=== PATIENT | female | born 1955 | race Caucasian/White ===

== ENCOUNTER → 2016-10-26 | Outpatient (CLI) | payer BC ==
[~2016-10-26] MED LIST: ACTO45TA15 PO; ALBU17IN INH; ALBU17IN2 INH; ASPI81TA85 PO; BISO5TAB54 PO; CLINDAMYCIN 600 MG/50 ML PREMIX BAG As Ordered ONE; CRES40TA PO; FLON0.05; FLUT1SPR2; GLIP10TA6 PO; INSUDET SC; INSUHUMDS SC; INSULANT SC; JANU100T PO; JARD1TAB3 PO; LEVA25SO PO; LIDOCAINE 2% MDV 20 ML VIAL As Ordered ONE; LIDOCAINE W/EPINEPHRINE 1% 20ML VIAL As Ordered ONE; LIPI80TA PO; LISI5TAB PO; METF1000 PO; NEUR100C PO; NEUR800T PO; NOVOLOG SC; ONDA4VLL IV; PERCOCET PO; PRED10TA2 PO; SODIUM BICARBONATE 8.4% INJ 50MEQ 50 ML VIAL As Ordered ONE; TYLE325T5 PO; VITA10002 PO; VITA500047 PO; ZETI10TA21 PO; ZOFR4TAB3 PO; fentaNYL 100 MCG/2 ML INJECTION (J3010) As Ordered ONE
--- NOTE | 2016-10-26 16:55 | REPKIM ---
CLINICAL HISTORY: Cholangiocarcinoma. The referring service has asked a chest elhrvi-w-muik placement for chemotherapy. PROCEDURE PERFORMED: Placement of totally implantable venous access device under combined sonographic and fluoroscopic guidance INTERVENTIONALIST: Annette Dickens MD CONSENT: The risks, benefits and alternatives to the procedure were explained to the patient and informed written consent was obtained. MEDICATIONS: Local Lidocaine, Clindamycin 600 mg IV and Fentanyl IV. SEDATION: Independent trained observer was present during the entire duration IV medications for monitoring. EBL: 15 mL FLUORO TIME: 0.6 minutes DEVICE USED: Bard Port 8-Syriac, Single-Lumen Lot#[id number] PROCEDURE/FINDINGS: The patient was brought to the interventional radiology suite and was positioned supine on the table. Time out procedure was performed. Real time ultrasound was used and permanent image stored. The right IJ vein is patent and compressible. Using ultrasound guidance the internal jugular vein was accessed with a micropuncture needle, after infiltration of the skin and deep tissues with local anesthetic. A peel-away sheath was placed. The catheter tip was inserted via the sheath under controlled respiration. The sheath was removed, and the catheter was flushed with heparinized saline and clamped. Next attention was turned to creation of a subcutaneous pocket for the port along the upper chest. The overlying skin and deep tissues were infiltrated with local anesthetic. A transverse skin incision was made long enough to accommodate the reservoir, and using blunt dissection a subcutaneous pocket was created. A tunnel was created from the pocket to the access site. A clamp was advanced from the pocket incision to the venous access site and used to grasp the free end of the catheter and pull it through to the pocket incision. The catheter was trimmed, attached to the reservoir, and flushed with heparinized saline. The reservoir was inserted into the pocket and secured with 2-0 absorbable sutures. The deep tissue was closed with interrupted 2-0 Vicryl suture. The skin incision was closed with a running subcuticular suture of 4-0 Vicryl. The venotomy incision was closed with 4-0 Vicryl suture. Mastisol and Steri-Strips were applied. The port was then accessed and Heparin (100 units/mL concentration) locked in the port. A sterile dressing was then applied. Post procedure chest spot film radiograph showed the tip of the catheter is at the cavoatrial junction. The patient tolerated the procedure well with no immediate complications. This procedure was performed using ultrasound and fluoroscopy. Dr. Dickens was present. IMPRESSION: 1. The right IJ vein is patent and compressible. 2. Successful placement of right IJ chest port placement as discussed above. The chest [id number]-g-wbcb is ready for use. cc: May Bo MD [facility]
== END | disposition home or self-care (01) ==
LOC: M IRPRO 07:54
PROVIDERS: ATTEND Internal Medicine Medical Oncology
DX: C22.1 Intrahepatic bile duct carcinoma (principal)
CPT/HCPCS: 36561; 76937; 77001; C1788; C1894; J3010

== ENCOUNTER 2016-11-02 11:12 | Observation (INO) | payer BC ==
[~2016-11-02] VITALS: Ht 160 cm; Wt 70.3 kg
[~2016-11-02 11:12] MED LIST changes: -CLINDAMYCIN 600 MG/50 ML PREMIX BAG As Ordered ONE; -LIDOCAINE 2% MDV 20 ML VIAL As Ordered ONE; -LIDOCAINE W/EPINEPHRINE 1% 20ML VIAL As Ordered ONE; -SODIUM BICARBONATE 8.4% INJ 50MEQ 50 ML VIAL As Ordered ONE; -fentaNYL 100 MCG/2 ML INJECTION (J3010) As Ordered ONE
[2016-11-02] MEDS ORDERED: ONDANSETRON 4MG/2ML VIAL (J2405) As Ordered ONE ×2 (11:50→17:47)
[2016-11-02 12:35] LABS: BASO % 0.7 % (0.0-1.0); EOS # 0.1 K/mm3 (0.0-0.50); EOS % 2.3 % (0.0-3.0); LARGE UNSTAINED CELL # 0.1 K/mm3 (0.0-0.4); LYMPH # 0.8 K/mm3 (1.5-4.5); LYMPH % 12.6 % (24.0-44.0); MEAN CORPUSCULAR HEMOGLOBIN 24.4 pg (27.0-33.0); MEAN CORPUSCULAR HGB CONC 32.2 g/dl (32.0-36.5); MEAN CORPUSCULAR VOLUME 75.6 fl (80.0-96.0); MONO # 0.2 K/mm3 (0.0-0.8); MONO % 2.9 % (0.0-5.0); NEUTROPHILS # 4.9 K/mm3 (1.8-7.7); NEUTROPHILS % 80.6 % (36.0-66.0); PLATELET COUNT, AUTOMATED 601 k/mm3 (150-450); RED CELL DISTRIBUTION WIDTH 16.5 % (11.5-14.5); WHITE BLOOD COUNT 6.1 K/mm3 (4.0-10.0)
[2016-11-02 13:04] LABS: ALBUMIN/GLOBULIN RATIO 0.88 (1.00-1.93); ALKALINE PHOSPHATASE 692 U/L (45-117); ALT/SGPT 45 U/L (12-78); ANION GAP 11 MEQ/L (8-16); AST/SGOT 42 U/L (15-37); BILIRUBIN,DIRECT 0.5 MG/DL (0.0-0.2); BILIRUBIN,TOTAL 0.8 MG/DL (0.2-1.0); BLOOD UREA NITROGEN 15 MG/DL (7-18); CALCIUM LEVEL 8.4 MG/DL (8.8-10.2); CARBON DIOXIDE LEVEL 28 MEQ/L (21-32); CHLORIDE LEVEL 93 MEQ/L (98-107); CREATININE FOR GFR 0.68 MG/DL (0.55-1.02); GLOMERULAR FILTRATION RATE > 60.0 (>45); GLUCOSE, FASTING 307 MG/DL (80-110); POTASSIUM SERUM 4.6 MEQ/L (3.5-5.1); SODIUM LEVEL 132 MEQ/L (136-145); TOTAL PROTEIN 6.4 GM/DL (6.4-8.2)
[2016-11-02] MEDS ORDERED: MORPHINE 4 MG/ML 1ML SYRINGE As Ordered ONE ×2 (13:44→18:41)
[2016-11-02] MEDS ORDERED: GASTROGRAFIN SOLUTION 30ML (Q9963) As Ordered ONE (13:58)
--- NOTE | 2016-11-02 14:37 | REP ---
Chest x-ray: Two views. History: Shortness of breath. Comparison chest x-ray August 23, 2016. Findings: There is a right internal jugular venous Upxmyw-M-Qwmz catheter with its tip in the expected location of the superior vena cava. There is coarse bilateral basilar and perihilar discoid atelectasis unchanged from the August 23, 2016 prior study. No acute infiltrate is seen. Heart is not enlarged. The lungs are exposed at a low inspiratory level unchanged from the prior exam. Impression: Bilateral basilar and perihilar discoid atelectasis. Yoxlkv-R-Icxz catheter. No acute changes. Low level of inspiration again noted. Signed by Vasiliy Mcekon MD 11/02/2016 03:34 P
[2016-11-02] MEDS ORDERED: ISOVUE-370 76% 100ML VIAL (Q9967) As Ordered ONE (15:24)
--- NOTE | 2016-11-02 16:07 | REP ---
CT abdomen and pelvis with IV and oral contrast: History: Abdominal pain. The patient gives a history of primary carcinoma of the liver. Comparison CT study is from April 2012. Comparison chest CT study is from August 23, 2016. CT contrast dose: 100 ml of Isovue [address] findings: Preliminary digital [employer] associate radiograph demonstrates an unremarkable bowel gas pattern. There is plate-like atelectasis in the lower lobes bilaterally and in the right middle lobe. No pleural effusion is seen. There is an extensive infiltrative, predominately low density mass occupying much of the right and left lobes of the liver. This is similar in size and extent to its appearance on August 23, 2016. There is a small sliver of fluid in the perihepatic region. Spleen is homogeneous in texture. There is an accessory splenule anteriorly. No pancreatic lesion is seen. No adrenal mass is observed. There is a calcified gallstone in the gallbladder again noted. No pericholecystic fluid or gallbladder wall thickening is seen. There is a 1.4 cm cyst in the right kidney. In addition, there is a 0.9 cm calculus in the right mid kidney. This area is beyond the scan range from the CT study of August 23, 2016. The right renal cyst appears to be visible on MRI scanning. No renal mass lesion is observed. Delayed scan images show no filling defect in the collecting system of either kidney. There are a few uterine calcifications. No uterine or ovarian mass lesion is seen. A small amount of ascites is seen in the cul-de-sac reflections of the pelvis. Small and large intestinal bowel loops are normal in the abdomen and pelvis. Urinary bladder is intact. Bone window settings show no bony destructive lesion. Impression: 1. Bilateral lower lobe plate-like atelectasis in the lungs. 2. Extensive large infiltrative mass occupying much of the left and right lobe of the liver unchanged from recent prior studies. 3. Cholelithiasis. 4. Small right renal cyst. 5. 9 mm intrarenal nephrolithiasis right kidney without hydronephrosis. 6. Small quantity of ascitic fluid. Signed by Vasiliy Mckeon MD 11/02/2016 05:42 P
[2016-11-02] MEDS ORDERED: GI COCKTAIL 50ML BTL(HYOSCYAMINE/MAALOX/LIDOCAINE VISCOUS)(1:3:1) As Ordered ONE (19:47)
[2016-11-02] MEDS ORDERED: GLUCAGON FOR INJ 1 MG VIAL (J1610) SC PRN (20:30)
[2016-11-02] MEDS ORDERED: GLUCOSE 4 GM CHEW TABLET PO PRN (20:30)
[2016-11-02] MEDS ORDERED: DEXTROSE 50% 50 ML SYRINGE IV PRN (20:30)
[2016-11-02] MEDS ORDERED: GI COCKTAIL 50ML BTL(HYOSCYAMINE/MAALOX/LIDOCAINE VISCOUS)(1:3:1) PO PRN (20:30)
[2016-11-02] MEDS ORDERED: PERC10TA17 PO (20:38)
[2016-11-02] MEDS ORDERED: OMEP20CA3 PO (20:38)
[2016-11-02] MEDS ORDERED: PAXI10TA2 PO (20:38)
[2016-11-02] MEDS ORDERED: HumaLOG INSULIN (NovoLOG) PER UNIT SC SCH (21:00)
[2016-11-02] MEDS ORDERED: PARoxetine 10MG TABLET PO PRN (21:15)
[2016-11-02] MEDS ORDERED: oxyCODONE 5MG TAB PO PRN (21:15)
[2016-11-02] MEDS ORDERED: ALBUTEROL SULFATE 2.5 MG/0.5 ML INH NEB SOLN NEB PRN (21:15)
--- NOTE | 2016-11-02 22:11 | EDDOCDS ---
Physician Documentation [facility] Name: Stephanie Arzate Age: 61 yrs Sex: Female : 1955 Arrival Date: 11/02/2016 Time: 11:12 Bed 1 Private MD: May Bo P. Disposition: 11/02/16 19:51 Hospitalization ordered by Dodie Medeiros for Inpatient Admission. Preliminary diagnosis are Generalized abdominal pain, Nausea and vomiting. - Bed requested for 4 [place]. - Status is Inpatient Admission. [facility] - Condition is Stable. - Problem is new. - Symptoms are unchanged. Historical: - Allergies: Aspirin (Rash); Latex (Hives); PENICILLINS (Rash); Emend (Wheezing); - Home Meds: 1. Jardiance 25 mg oral tab 1 tab once daily (Last dose: 11/01/2016) 2. Humalog 100 unit/mL Sub-Q soln sliding scale three times daily (Last dose: 11/01/2016) 3. oxycodone-acetaminophen 5-325 mg Oral tab 1 tab every 4 hours (Last dose: 11/01/2016) 4. Paxil 10 mg Oral tab 1 tab once daily (Last dose: 10/31/2016) 5. omeprazole 20 mg Oral cpDR 1 cap once daily (Last dose: Unknown) - PMHx: Cancer, Liver; COPD; Diabetes - IDDM: controlled; Hypertension; Hypercholesterolemia; Diabetic Neuropathy; - PSHx: Carpal Tunnel Repair- Right; Infusaport Placement; - Social history: Smoking status: Patient states was never smoker of tobacco. No barriers to communication noted, The patient speaks fluent Hungarian. - Family history: Not pertinent. - : The pt / caregiver states he / she is not on anticoagulants. Home medication list is obtained from the patient. - Exposure Risk Screening:: None identified. Vital Signs: 11/02 11:13 BP 161 / 109; Pulse 105; Resp 18 S; Temp 98.0(O); Pulse Ox 100% on R/A; Weight 70.31 kg dd6 / 155.01 lbs (R); Height 5 ft. 3 in. (160.02 cm) (R); 11:45 BP 151 / 74 (auto/); cjh 11:46 Pulse 94 MON; Pulse Ox 95% ; cjh 12:00 BP 157 / 68 (auto/); cjh 12:15 BP 144 / 65 (auto/); cjh 12:16 Pulse 94 MON; Pulse Ox 94% ; cjh 12:30 BP 130 / 63 (auto/); cjh 12:31 Pulse 85 MON; Pulse Ox 94% ; cjh 12:45 BP 133 / 76 (auto/); cjh 12:46 Pulse 109 MON; Pulse Ox 96% ; cjh 13:00 BP 138 / 80 (auto/); cjh 13:01 Pulse 85 MON; Pulse Ox 95% ; cjh 13:15 BP 128 / 72 LA Supine (man/reg); ct3 13:15 BP 135 / 65 (auto/); cjh 13:16 Pulse 83 MON; Pulse Ox 94% ; cjh 13:36 Pulse 108 MON; Pulse Ox 94% ; cjh 13:37 BP 160 / 67 (auto/); cjh 13:52 BP 139 / 64 (auto/); cjh 13:52 Pulse 86 MON; Pulse Ox 91% ; cjh 14:07 BP 159 / 77 (auto/); cjh 14:07 Pulse 87 MON; Pulse Ox 95% ; cjh 14:22 BP 145 / 66 (auto/); cjh 14:22 Pulse 82 MON; Pulse Ox 94% ; cjh 14:36 Pulse 81 MON; Pulse Ox 95% ; cjh 14:37 BP 145 / 66; Pulse 80; Resp 16; Pulse Ox 95% ; Pain 2/10; cjh 14:37 BP 160 / 73 (auto/); cjh 14:51 Pulse 81 MON; Pulse Ox 96% ; cjh 14:52 BP 161 / 73 (auto/); cjh 15:06 Pulse 81 MON; Pulse Ox 95% ; cjh 15:07 BP 141 / 79 (auto/); cjh 15:22 BP 173 / 78 (auto/); cjh 15:22 Pulse 82 MON; Pulse Ox 94% ; cjh 15:37 BP 184 / 86 (auto/); cjh 15:37 Pulse 98 MON; Pulse Ox 91% ; cjh 15:39 BP 161 / 73 (auto/); cjh 15:39 Pulse 84 MON; Pulse Ox 92% ; cjh 15:52 BP 167 / 80 (auto/); cjh 15:52 Pulse 79 MON; Pulse Ox 93% ; cjh 16:37 BP 156 / 87 (auto/); cjh 16:37 Pulse 82 MON; Pulse Ox 95% ; cjh 16:52 BP 158 / 77 (auto/); cjh 16:52 Pulse 132 MON; Pulse Ox 96% ; cjh 17:07 BP 180 / 81 (auto/); cjh 17:07 Pulse 83 MON; Pulse Ox 95% ; cjh 17:22 BP 156 / 80 (auto/); cjh 17:23 Pulse 107 MON; Pulse Ox 97% ; cjh 17:37 BP 161 / 85 (auto/); cjh 17:37 Pulse 82 MON; Pulse Ox 95% ; cjh 18:07 BP 166 / 79 (auto/); cjh 18:07 Pulse 82 MON; Pulse Ox 93% ; cjh 18:22 BP 164 / 79 (auto/); cjh 18:22 Pulse 81 MON; Pulse Ox 93% ; cjh 18:37 BP 165 / 78 (auto/); cjh 18:37 Pulse 82 MON; Pulse Ox 95% ; cjh 18:52 BP 169 / 75 (auto/); cjh 18:52 Pulse 79 MON; Pulse Ox 92% ; cjh 19:07 BP 189 / 90 (auto/); cjh 19:07 Pulse 79 MON; Pulse Ox 94% ; cjh 19:22 BP 167 / 72 (auto/); cjh 19:22 Pulse 77 MON; Pulse Ox 92% ; cjh 19:37 BP 171 / 82 (auto/); cjh 19:37 Pulse 77 MON; Pulse Ox 92% ; cjh 20:37 BP 168 / 77 (auto/); cjh 20:38 Pulse 78 MON; Pulse Ox 93% ; cjh 20:52 BP 153 / 69 (auto/); cjh 20:52 Pulse 78 MON; Pulse Ox 92% ; cjh 21:02 BP 157 / 77 (auto/); cjh 21:02 Pulse 77 MON; Pulse Ox 93% ; cjh 21:03 BP 157 / 77; Pulse 82; Resp 18; Temp 97.9(TE); Pulse Ox 95% on R/A; Pain 2/10; valerie 21:07 BP 159 / 71 (auto/); cjh 21:07 Pulse 77 MON; Pulse Ox 93% ; cjh 21:21 Pulse 77 MON; Pulse Ox 92% ; cjh 21:22 BP 171 / 77 (auto/); cjh 21:37 BP 150 / 68 (auto/); cjh 21:37 Pulse 85 MON; Pulse Ox 94% ; cjh 21:52 BP 152 / 65 (auto/); cjh 21:53 Pulse 78 MON; Pulse Ox 93% ; cjh 11:13 Body Mass Index 27.46 (70.31 kg, 160.02 cm) dd6 MDM: 11:27 NS 0.9% 500 ml IV at bolus once ordered. fg 11:27 IV Saline Lock ordered. fg 11:27 Undress patient appropriately for examination ordered. fg 11:27 Ondansetron 4 mg IVP once ordered. fg 11:28 Basic Metabolic Profile Ordered. EDMS 11:28 CBC with Diff Ordered. EDMS 11:28 Lipase Ordered. EDMS 11:28 Liver Profile Ordered. EDMS 11:28 Troponin Ordered. EDMS 11:28 Urinalysis Ordered. EDMS 11:28 Urine Culture Ordered. EDMS 11:29 NOTHING BY MOUTH+DIET ordered. EDMS 11:29 ECG WITH READING ER PHYS+CARDIAG ordered. EDMS 11:48 -Blood Culture (Adults Only), peripheral from different site, or from device/port/PICC fg etc. if present ordered. 11:48 -Blood Culture Ordered. EDMS 11:48 Lactic Acid (Juarez tube on ice) Ordered. EDMS 11:51 -Blood Culture (Adults Only), peripheral from different site, or from device/port/PICC deg etc. if present complete. 11:52 BLOOD CULTURES Ordered. EDMS 12:07 Pension Agent/Pulse Ox/q 30 min VS ordered. br1 12:07 [facility] [place] ordered. br1 12:59 [facility] Payment Agreement was scanned into [employer] and attached to record. jp5 13:25 NS 0.9% 1000 ml IV at 150 mL/hr continuous ordered. br1 13:25 Chest, 2 View (pa\E\lat) Ordered. EDMS 13:26 morphine 4 mg IVP once ordered. br1 13:32 CT ABD & PELVIS: IV and Oral Contrast Ordered. EDMS 13:44 Financial registration complete. jp5 13:55 Diatrizoate Meglumine & Sodium Liquid 10 ml PO once; mix in 290cc of water ordered. cjh 13:55 Diatrizoate Meglumine & Sodium Liquid 10 ml PO once; mix in 290cc of water ordered. cjh 15:12 Basic Metabolic Profile Reviewed. br1 15:12 CBC with Diff Reviewed. br1 15:12 Liver Profile Reviewed. br1 15:12 Urinalysis Reviewed. br1 15:12 Lipase Reviewed. br1 15:12 Troponin Reviewed. br1 15:12 Lactic Acid (Juarez tube on ice) Reviewed. br1 16:23 Fluid Challenge ordered. br1 17:46 Ondansetron 4 mg IVP once ordered. br1 18:24 morphine 4 mg IVP once ordered. br1 19:38 GI Cocktail - (Alum-Mag Hydroxide-Simeth 30 ml, Lidocaine 10 ml, Hyoscyamine 10 ml) PO br1 once; Pre-mixed 50mL unit dose ordered. 19:38 BED REQUEST+ADM ordered. EDMS 20:32 CBC WITH DIFFERENTIAL Ordered. EDMS 20:32 BASIC METABOLIC PROFILE Ordered. EDMS 20:34 Admission / Observation Status ordered. EDMS 20:34 OTHER CUSTOM DIETS ordered. EDMS Administered Medications: 12:20 Drug: Ondansetron 4 mg Route: IVP; Site: right forearm; [facility] 12:21 Drug: NS 0.9% 500 ml Route: IV; Rate: bolus; Site: right forearm; [facility] 22:01 Follow up: IV Status: Completed infusion; IV Intake: 500ml [facility] 13:54 Drug: morphine 4 mg Route: IVP; Site: right forearm; [facility] 14:37 Follow up: Response: No Adverse Reaction; Pain is decreased [facility] 13:55 Drug: NS 0.9% 1000 ml Route: IV; Rate: 150 mL/hr; Site: right forearm; [facility] 22:01 Follow up: IV Status: Completed infusion; IV Intake: 1000ml [facility] 14:05 Drug: Diatrizoate Meglumine & Sodium 10 ml [diatrizoate meglumine and diat.sodium 66 cjh %-10 % oral solution (10 mL)] Route: PO; 14:37 Drug: Diatrizoate Meglumine & Sodium 10 ml [diatrizoate meglumine and diat.sodium 66 cjh %-10 % oral solution (10 mL)] Route: PO; 17:52 Drug: Ondansetron 4 mg Route: IVP; Site: right antecubital; [facility] 18:52 Drug: morphine 4 mg Route: IVP; Site: right forearm; [facility] 22:00 Follow up: Response: No Adverse Reaction; No significant change. [facility] 19:55 Drug: GI Cocktail - (Alum-Mag Hydroxide-Simeth Suspension 225 mg-200 mg-25 mg/5 mL 30 cjh ml, Lidocaine Liquid 2 % 10 ml, Hyoscyamine Liquid 10 ml) Route: PO; 22:00 Follow up: Response: No Adverse Reaction; Pain is decreased [facility] Signatures: Dispatcher [employer] EDMS Kalli Andrade, Clinical Education Coordinator Unit deg Damien, NilsaOfeliaPratima, Clinical Education Coordinator Unit ml3 Ahsan Gomez MD MD br1 Kristina Patel RN RN [id number] Pretty Almaraz RN RN [facility] Tamika Lott jp5 Qi Barkley MD MD Theresa Garcia RN [id number] The chart was reviewed and I authenticate all verbal orders and agree with the evaluation and treatment provided.Attachments: 12:59 [facility] Payment Agreement [email or web address] [facility]
--- NOTE | 2016-11-02 22:11 | EDDOCDS ---
Nurse's Notes [facility] Name: Stephanie Arzate Age: 61 yrs Sex: Female : 1955 Arrival Date: 11/02/2016 Time: 11:12 Bed 1 Private MD: May Bo P. Diagnosis: Generalized abdominal pain;Nausea and vomiting Presentation: 11/02 11:15 Presenting complaint: Patient states: "I've been vomiting since late Wednesday and I jc4 vomited once this morning. I had a temperature of 101.2 on Wednesday but haven't any since then. I called my oncologist who told me to come in for hydration". Adult Sepsis Screening: The patient does not have new or worsening altered mentation. Patient's respiratory rate is less than 22. Systolic blood pressure is greater than 100. Patient has a qSOFA score of 0- Negative Sepsis Screen. Suicide/Homicide risk assessment- the patient denies having any suicidal and/or homicidal ideations and does not present with any other emotional, behavioral or mental health complaints. Status: Patient is not a medicaid service coordinator or dependent. Transition of care: patient was not received from another setting of care. 11:15 Acuity: MAURICIO Level 3 jc4 11:15 Method Of Arrival: Walkin/Carried/Asstd 4 11:15 Red Flag criteria, patient assessed and taken directly to a bed. jc4 11:21 Presenting complaint: currently undergoing chemotherapy for Liver Cancer. Followed by jc4 Dr. Bo. Triage Assessment: 11:21 General: Appears in no apparent distress. Pain: Pain currently is 4 out of 10 on a pain jc4 scale. HIV screening NA for this visit Offered previously. Historical: - Allergies: Aspirin (Rash); Latex (Hives); PENICILLINS (Rash); Emend (Wheezing); - Home Meds: 1. Jardiance 25 mg oral tab 1 tab once daily (Last dose: 11/01/2016) 2. Humalog 100 unit/mL Sub-Q soln sliding scale three times daily (Last dose: 11/01/2016) 3. oxycodone-acetaminophen 5-325 mg Oral tab 1 tab every 4 hours (Last dose: 11/01/2016) 4. Paxil 10 mg Oral tab 1 tab once daily (Last dose: 10/31/2016) 5. omeprazole 20 mg Oral cpDR 1 cap once daily (Last dose: Unknown) - PMHx: Cancer, Liver; COPD; Diabetes - IDDM: controlled; Hypertension; Hypercholesterolemia; Diabetic Neuropathy; - PSHx: Carpal Tunnel Repair- Right; Infusaport Placement; - Social history: Smoking status: Patient states was never smoker of tobacco. No barriers to communication noted, The patient speaks fluent Stateless. - Family history: Not pertinent. - : The pt / caregiver states he / she is not on anticoagulants. Home medication list is obtained from the patient. - Exposure Risk Screening:: None identified. Screenin:44 Screening information is obtained from the patient. Fall risk: No risks identified. [facility] Assistance ADL's: requires no assistance with activities of daily living. Abuse/DV Screen: The patient / caregiver reports he/she is: not in a situation that causes fear, pain or injury. Nutritional screening: No deficits noted. Advance Directives: There is no active DNR order. home support is adequate. Assessment: 11:30 General: Appears in no apparent distress, comfortable, Behavior is appropriate for age, cjh cooperative. Neurological: Level of Consciousness is awake, alert, Oriented to person, place, time. Respiratory: Airway is patent Respiratory effort is even, unlabored, Respiratory pattern is regular, symmetrical. GI: Abdomen is non- distended Bowel sounds present X 4 quads. Abd is non tender X 4 quads Reports nausea. Derm: Skin is pink, warm & dry. Musculoskeletal: Range of motion intact in all extremities. 12:00 General: assisted OOB to BSC, tolerated without distress, urine sample obtained. [facility] 13:00 General: resting quietly, states nausea has improved, no new changes. [facility] 14:00 General: drinking contrast, no new complaints, will continue to monitor. [facility] 15:42 General: returned from CT, tolerated well, denies further needs. [facility] 16:30 General: no changes from previous, awaiting results, denies needs at this time. [facility] 17:52 General: Appears uncomfortable, Behavior is cooperative. General: medicated for nausea. mk4 Pain: Location: abdomen Pain currently is 6 out of 10 on a pain scale. 18:53 General: medicated for pain, patient is quiet, son at bedside, waiting dispo. [facility] 19:56 General: no new problems or complaints, taking meds without difficulty, awaiting [facility] admission. 20:30 General: state nauseous briefly after GI cocktail but better now than before. [facility] Vital Signs: 11:13 BP 161 / 109; Pulse 105; Resp 18 S; Temp 98.0(O); Pulse Ox 100% on R/A; Weight 70.31 kg dd6 (R); Height 5 ft. 3 in. (160.02 cm) (R); 11:45 BP 151 / 74 (auto/); cjh 11:46 Pulse 94 MON; Pulse Ox 95% ; cjh 12:00 BP 157 / 68 (auto/); cjh 12:15 BP 144 / 65 (auto/); cjh 12:16 Pulse 94 MON; Pulse Ox 94% ; cjh 12:30 BP 130 / 63 (auto/); cjh 12:31 Pulse 85 MON; Pulse Ox 94% ; cjh 12:45 BP 133 / 76 (auto/); cjh 12:46 Pulse 109 MON; Pulse Ox 96% ; cj 13:00 BP 138 / 80 (auto/); cjh 13:01 Pulse 85 MON; Pulse Ox 95% ; cjh 13:15 BP 128 / 72 LA Supine (man/reg); ct3 13:15 BP 135 / 65 (auto/); cjh 13:16 Pulse 83 MON; Pulse Ox 94% ; cjh 13:36 Pulse 108 MON; Pulse Ox 94% ; cjh 13:37 BP 160 / 67 (auto/); cjh 13:52 BP 139 / 64 (auto/); cjh 13:52 Pulse 86 MON; Pulse Ox 91% ; cjh 14:07 BP 159 / 77 (auto/); cjh 14:07 Pulse 87 MON; Pulse Ox 95% ; cjh 14:22 BP 145 / 66 (auto/); cjh 14:22 Pulse 82 MON; Pulse Ox 94% ; cjh 14:36 Pulse 81 MON; Pulse Ox 95% ; cjh 14:37 BP 145 / 66; Pulse 80; Resp 16; Pulse Ox 95% ; Pain 2/10; cjh 14:37 BP 160 / 73 (auto/); cjh 14:51 Pulse 81 MON; Pulse Ox 96% ; cjh 14:52 BP 161 / 73 (auto/); cjh 15:06 Pulse 81 MON; Pulse Ox 95% ; cjh 15:07 BP 141 / 79 (auto/); cjh 15:22 BP 173 / 78 (auto/); cjh 15:22 Pulse 82 MON; Pulse Ox 94% ; cjh 15:37 BP 184 / 86 (auto/); cjh 15:37 Pulse 98 MON; Pulse Ox 91% ; cjh 15:39 BP 161 / 73 (auto/); cjh 15:39 Pulse 84 MON; Pulse Ox 92% ; cjh 15:52 BP 167 / 80 (auto/); cjh 15:52 Pulse 79 MON; Pulse Ox 93% ; cjh 16:37 BP 156 / 87 (auto/); cjh 16:37 Pulse 82 MON; Pulse Ox 95% ; cjh 16:52 BP 158 / 77 (auto/); cjh 16:52 Pulse 132 MON; Pulse Ox 96% ; cjh 17:07 BP 180 / 81 (auto/); cjh 17:07 Pulse 83 MON; Pulse Ox 95% ; cjh 17:22 BP 156 / 80 (auto/); cjh 17:23 Pulse 107 MON; Pulse Ox 97% ; cjh 17:37 BP 161 / 85 (auto/); cjh 17:37 Pulse 82 MON; Pulse Ox 95% ; cjh 18:07 BP 166 / 79 (auto/); cjh 18:07 Pulse 82 MON; Pulse Ox 93% ; cjh 18:22 BP 164 / 79 (auto/); cjh 18:22 Pulse 81 MON; Pulse Ox 93% ; cjh 18:37 BP 165 / 78 (auto/); cjh 18:37 Pulse 82 MON; Pulse Ox 95% ; cjh 18:52 BP 169 / 75 (auto/); cjh 18:52 Pulse 79 MON; Pulse Ox 92% ; cjh 19:07 BP 189 / 90 (auto/); cjh 19:07 Pulse 79 MON; Pulse Ox 94% ; cjh 19:22 BP 167 / 72 (auto/); cjh 19:22 Pulse 77 MON; Pulse Ox 92% ; cjh 19:37 BP 171 / 82 (auto/); cjh 19:37 Pulse 77 MON; Pulse Ox 92% ; cjh 20:37 BP 168 / 77 (auto/); cjh 20:38 Pulse 78 MON; Pulse Ox 93% ; cjh 20:52 BP 153 / 69 (auto/); cjh 20:52 Pulse 78 MON; Pulse Ox 92% ; cjh 21:02 BP 157 / 77 (auto/); cjh 21:02 Pulse 77 MON; Pulse Ox 93% ; cjh 21:03 BP 157 / 77; Pulse 82; Resp 18; Temp 97.9(TE); Pulse Ox 95% on R/A; Pain 2/10; valerie 21:07 BP 159 / 71 (auto/); cjh 21:07 Pulse 77 MON; Pulse Ox 93% ; cjh 21:21 Pulse 77 MON; Pulse Ox 92% ; cjh 21:22 BP 171 / 77 (auto/); cjh 21:37 BP 150 / 68 (auto/); cjh 21:37 Pulse 85 MON; Pulse Ox 94% ; cjh 21:52 BP 152 / 65 (auto/); cjh 21:53 Pulse 78 MON; Pulse Ox 93% ; cjh 11:13 Body Mass Index 27.46 (70.31 kg, 160.02 cm) dd6 Vitals: 11:13 Log In Time: November 02, 2016 at 11:11. dd6 ED Course: 11:13 Patient visited by Eric Og PCA. dd6 11:13 May Bo is Private Physician. dd6 11:13 Patient moved to Waiting dd6 11:16 Triage Initiated jc4 11:25 Patient moved to 1 jc4 11:42 EKG done. (by ED staff). Reviewed by Qi Barkley MD. dem1 11:44 Pt greeted and oriented to ED. Patient advised of names of staff involved in care, dem1 location of call naylor, wait times and NPO status. Patient has correct armband on for positive identification. Placed in gown. Bed in low position. Call light in reach. Side rails up X 1. campus monitor on. Pulse ox on. NIBP on. 11:45 Patient visited by Nik Jones. dem1 12:20 Lactic Acid (Juarez tube on ice) Sent. cjh 12:21 Basic Metabolic Profile Sent. cjh 12:21 CBC with Diff Sent. cjh 12:21 Lipase Sent. cjh 12:21 Liver Profile Sent. cjh 12:21 Troponin Sent. cjh 12:21 Urinalysis Sent. cjh 12:21 Urine Culture Sent. cjh 12:36 Patient visited by Pretty Almaraz RN. cj 12:59 [facility] Payment Agreement was scanned into [employer] and attached to record. jp5 13:02 Ahsan Gomez MD is Attending Physician. br1 13:15 Patient visited by Gayatri Jacobson PCA. ct3 13:24 Patient visited by Ahsan Gomez MD. br1 13:56 Patient visited by Pretty Almaraz RN. cjh 14:38 Patient visited by Pretty Almaraz RN. cjh 15:13 Patient visited by Gayatri Jacobson PCA. ct3 15:13 Chest, 2 View (pa\\E\\lat) Returned. EDMS 15:44 The patient / caregiver is instructed regarding the plan of care and ED course. cjh 15:44 Inserted saline lock: 20 gauge in right forearm and blood collected. The patient [facility] tolerated the procedure well. Labs drawn. (by ED staff). Sent per order to lab. Labs/Blood culture drawn Urine collected. Clean catch specimen. Urine specimen sent to lab. 15:46 Patient visited by Pretty Almaraz RN. cj 16:40 CT ABD & PELVIS: IV and Oral Contrast Returned. EDMS 16:42 Patient visited by Gayatri Jacobson PCA. ct3 17:14 Patient visited by Gayatri Jacobson PCA. ct3 17:46 Patient visited by Ahsan Gomez MD. br1 18:21 Patient visited by Gayatri Jacobson PCA. ct3 18:52 Patient visited by Pretty Almaraz RN. cjh 19:13 Patient visited by Marcio Vasquez PCA. kb5 19:48 Patient visited by Ahsan Gomez MD. br1 19:51 Dodie Medeiros is Hospitalizing Provider. br1 20:11 Patient visited by Marcio Vasquez PCA. kb5 21:04 Patient visited by Vivi Up PCA. valerie Administered Medications: 12:20 Drug: Ondansetron 4 mg Route: IVP; Site: right forearm; [facility] 12:21 Drug: NS 0.9% 500 ml Route: IV; Rate: bolus; Site: right forearm; [facility] 22:01 Follow up: IV Status: Completed infusion; IV Intake: 500ml [facility] 13:54 Drug: morphine 4 mg Route: IVP; Site: right forearm; [facility] 14:37 Follow up: Response: No Adverse Reaction; Pain is decreased [facility] 13:55 Drug: NS 0.9% 1000 ml Route: IV; Rate: 150 mL/hr; Site: right forearm; [facility] 22:01 Follow up: IV Status: Completed infusion; IV Intake: 1000ml [facility] 14:05 Drug: Diatrizoate Meglumine & Sodium 10 ml [diatrizoate meglumine and diat.sodium 66 cjh %-10 % oral solution (10 mL)] Route: PO; 14:37 Drug: Diatrizoate Meglumine & Sodium 10 ml [diatrizoate meglumine and diat.sodium 66 cjh %-10 % oral solution (10 mL)] Route: PO; 17:52 Drug: Ondansetron 4 mg Route: IVP; Site: right antecubital; 4 18:52 Drug: morphine 4 mg Route: IVP; Site: right forearm; [facility] 22:00 Follow up: Response: No Adverse Reaction; No significant change. [facility] 19:55 Drug: GI Cocktail - (Alum-Mag Hydroxide-Simeth Suspension 225 mg-200 mg-25 mg/5 mL 30 cjh ml, Lidocaine Liquid 2 % 10 ml, Hyoscyamine Liquid 10 ml) Route: PO; 22:00 Follow up: Response: No Adverse Reaction; Pain is decreased [facility] Intake: 22:01 IV: 500.00ml; Total: 500.00ml. [facility] 22:01 IV: 1000.00ml; Total: 1500.00ml. [facility] Order Results: Lab Order: Basic Metabolic Profile; SPEC'M 11/02/16 12:13 Test: GLUCOSE, FASTING; Value: 307; Range: 80-110; Abnormal: Above high normal; Units: MG/DL; Status: F Test: BLOOD UREA NITROGEN; Value: 15; Range: 7-18; Units: MG/DL; Status: F Test: CREATININE FOR GFR; Value: 0.68; Range: 0.55-1.02; Units: MG/DL; Status: F Test: GLOMERULAR FILTRATION RATE; Value: > 60.0; Range: >45; Status: F Test: SODIUM LEVEL; Value: 132; Range: 136-145; Abnormal: Below low normal; Units: MEQ/L; Status: F Test: POTASSIUM SERUM; Value: 4.6; Range: 3.5-5.1; Units: MEQ/L; Status: F Test: CHLORIDE LEVEL; Value: 93; Range: 98-107; Abnormal: Below low normal; Units: MEQ/L; Status: F Test: CARBON DIOXIDE LEVEL; Value: 28; Range: 21-32; Units: MEQ/L; Status: F Test: ANION GAP; Value: 11; Range: 8-16; Units: MEQ/L; Status: F Test: CALCIUM LEVEL; Value: 8.4; Range: 8.8-10.2; Abnormal: Below low normal; Units: MG/DL; Status: F Test Note: ; Units are mL/min/1.73 m2 Chronic Kidney Disease Staging per NKF: Stage I & II GFR >=60 Normal to Mildly Decreased Stage III GFR 30-59 Moderately Decreased Stage IV GFR 15-29 Severely Decreased Stage V GFR <15 Very Little GFR Left ESRD GFR <15 on [employer] Lab Order: CBC with Diff; SPEC'M 11/02/16 12:13 Test: WHITE BLOOD COUNT; Value: 6.1; Range: 4.0-10.0; Units: K/mm3; Status: F Test: RED BLOOD COUNT; Value: 4.82; Range: 4.00-5.40; Units: M/mm3; Status: F Test: HEMOGLOBIN; Value: 11.7; Range: 12.0-16.0; Abnormal: Below low normal; Units: g/dl; Status: F Test: HEMATOCRIT; Value: 36.5; Range: 36.0-47.0; Units: %; Status: F Test: MEAN CORPUSCULAR VOLUME; Value: 75.6; Range: 80.0-96.0; Abnormal: Below low normal; Units: fl; Status: F Test: MEAN CORPUSCULAR HEMOGLOBIN; Value: 24.4; Range: 27.0-33.0; Abnormal: Below low normal; Units: pg; Status: F Test: MEAN CORPUSCULAR HGB CONC; Value: 32.2; Range: 32.0-36.5; Units: g/dl; Status: F Test: RED CELL DISTRIBUTION WIDTH; Value: 16.5; Range: 11.5-14.5; Abnormal: Above high normal; Units: %; Status: F Test: PLATELET COUNT, AUTOMATED; Value: 601; Range: 150-450; Abnormal: Above high normal; Units: k/mm3; Status: F Test: NEUTROPHILS %; Value: 80.6; Range: 36.0-66.0; Abnormal: Above high normal; Units: %; Status: F Test: LYMPH %; Value: 12.6; Range: 24.0-44.0; Abnormal: Below low normal; Units: %; Status: F Test: MONO %; Value: 2.9; Range: 0.0-5.0; Units: %; Status: F Test: EOS %; Value: 2.3; Range: 0.0-3.0; Units: %; Status: F Test: BASO %; Value: 0.7; Range: 0.0-1.0; Units: %; Status: F Test: LARGE UNSTAINED CELL %; Value: 1.0; Range: 0.0-4.0; Units: %; Status: F Test: NEUTROPHILS #; Value: 4.9; Range: 1.8-7.7; Units: K/mm3; Status: F Test: LYMPH #; Value: 0.8; Range: 1.5-4.5; Abnormal: Below low normal; Units: K/mm3; Status: F Test: MONO #; Value: 0.2; Range: 0.0-0.8; Units: K/mm3; Status: F Test: EOS #; Value: 0.1; Range: 0.0-0.50; Units: K/mm3; Status: F Test: BASO #; Value: 0.0; Range: 0.0-0.2; Units: K/mm3; Status: F Test: LARGE UNSTAINED CELL #; Value: 0.1; Range: 0.0-0.4; Units: K/mm3; Status: F Lab Order: Lipase; SPEC'M 11/02/16 12:13 Test: LIPASE; Value: 131; Range: 73-393; Units: U/L; Status: F Lab Order: Liver Profile; SPEC'M 11/02/16 12:13 Test: AST/SGOT; Value: 42; Range: 15-37; Abnormal: Above high normal; Units: U/L; Status: F Test: ALT/SGPT; Value: 45; Range: 12-78; Units: U/L; Status: F Test: ALKALINE PHOSPHATASE; Value: 692; Range: 45-117; Abnormal: Above high normal; Units: U/L; Status: F Test: BILIRUBIN,TOTAL; Value: 0.8; Range: 0.2-1.0; Units: MG/DL; Status: F Test: BILIRUBIN,DIRECT; Value: 0.5; Range: 0.0-0.2; Abnormal: Above high normal; Units: MG/DL; Status: F Test: TOTAL PROTEIN; Value: 6.4; Range: 6.4-8.2; Units: GM/DL; Status: F Test: ALBUMIN; Value: 3.0; Range: 3.2-5.2; Abnormal: Below low normal; Units: GM/DL; Status: F Test: ALBUMIN/GLOBULIN RATIO; Value: 0.88; Range: 1.00-1.93; Abnormal: Below low normal; Status: F Lab Order: Troponin; SPEC'M 11/02/16 12:13 Test: TROPONIN I; Value: < 0.02; Range: < 0.10; Units: NG/ML; Status: F Test Note: ; Troponin I Reference Interval for [employer] LOCI: 99th Percentile= 0.00-0.045 ng/ml Risk Stratification: <= 0.10 ng/ml Decreased Risk for Adverse Clinical Events. 0.10-1.50 ng/ml Increased Risk for Adverse Clinical Events. Evaluation of additional criterion and/or repeat testing in 2-6 hours is suggested to rule out myocardial damage. >= 1.50 ng/ml Indicative of Myocardial Injury. Lab Order: Urinalysis; SPEC'M 11/02/16 12:13 Test: APPEARANCE, URINE; Value: HAZY; Range: CLEAR; Status: F Test: COLOR, URINE; Value: YELLOW; Range: YELLOW; Status: F Test: PH,URINE; Value: 5.0; Range: 5.0-9.0; Units: UNITS; Status: F Test: SPECIFIC GRAVITY URINE AUTO; Value: 1.022; Range: 1.002-1.035; Status: F Test: PROTEIN, URINE AUTO; Value: 1+; Range: NEGATIVE; Abnormal: Above high normal; Units: mg/dL; Status: F Test: GLUCOSE, URINE (UA) AUTO; Value: 3+; Range: NEGATIVE; Abnormal: Above high normal; Units: mg/dL; Status: F Test: KETONE, URINE AUTO; Value: TRACE; Range: NEGATIVE; Abnormal: Above high normal; Units: mg/dL; Status: F Test: UROBILINOGEN, URINE AUTO; Value: 4.0; Range: 0.0-2.0; Abnormal: Above high normal; Units: mg/dL; Status: F Test: BILIRUBIN, URINE AUTO; Value: NEGATIVE; Range: NEGATIVE; Status: F Test: NITRITE, URINE AUTO; Value: NEGATIVE; Range: NEGATIVE; Status: F Test: LEUKOCYTE ESTERASE, URINE AUTO; Value: TRACE; Range: NEGATIVE; Abnormal: Above high normal; Status: F Test: BLOOD, URINE BLOOD; Value: NEGATIVE; Range: NEGATIVE; Status: F Test: WBC, URINE AUTO; Value: 5; Range: 0-3; Abnormal: Above high normal; Units: /HPF; Status: F Test: RBC, URINE AUTO; Value: 2; Range: 0-3; Units: /HPF; Status: F Test: BACTERIA, URINE AUTO; Value: 1+; Range: NEGATIVE; Abnormal: Above high normal; Status: F Test: SQUAMOUS EPITHELIAL CELL UR AU; Value: 3; Range: 0-6; Units: /HPF; Status: F Test: MUCUS, URINE; Value: SMALL; Range: NEGATIVE; Status: F Test: HYALINE CAST, URINE AUTO; Value: 0; Range: 0-1; Units: /LPF; Status: F Lab Order: Lactic Acid (Juarez tube on ice); SPEC'M 11/02/16 12:13 Test: LACTIC ACID LEVEL, LACTATE; Value: 1.5; Range: 0.4-2.0; Units: MMOL/L; Status: F Radiology Order: Chest, 2 View (pa\\E\\lat) Test: Chest, 2 View (pa\\E\\lat) REASON FOR EXAMINATION: Shortness of Breath; Chest x-ray: Two views.; ; History: Shortness of breath.; ; Comparison chest x-ray August 23, 2016.; ; Findings: There is a right internal jugular venous Wxilev-B-Loqx catheter with; its tip in the expected location of the superior vena cava. There is coarse; bilateral basilar and perihilar discoid atelectasis unchanged from the 2015 prior study. No acute infiltrate is seen. Heart is not enlarged. The; lungs are exposed at a low inspiratory level unchanged from the prior exam.; ; Impression:; ; Bilateral basilar and perihilar discoid atelectasis. Ddjzai-[id number]-Trmm catheter. No; acute changes. Low level of inspiration again noted.; ; ; Signed by; Vasiliy Mckeon MD 11/02/2016 03:34 P; Radiology Order: CT ABD & PELVIS: IV and Oral Contrast Test: CT ABD & PELVIS: IV and Oral Contrast REASON FOR EXAMINATION: Abdomen Pain; CT abdomen and pelvis with IV and oral contrast:; ; History: Abdominal pain. The patient gives a history of primary carcinoma of the; liver.; ; Comparison CT study is from April 2012. Comparison chest CT study is from 2015.; ; CT contrast dose: 100 ml of Isovue 370 is administered intravenously.; ; CT findings: Preliminary digital annual greenhouse manager radiograph demonstrates an unremarkable; bowel gas pattern. There is plate-like atelectasis in the lower lobes; bilaterally and in the right middle lobe. No pleural effusion is seen.; ; There is an extensive infiltrative, predominately low density mass occupying much; of the right and left lobes of the liver. This is similar in size and extent to; its appearance on August 23, 2016. There is a small sliver of fluid in the; perihepatic region. Spleen is homogeneous in texture. There is an accessory; splenule anteriorly. No pancreatic lesion is seen. No adrenal mass is observed.; There is a calcified gallstone in the gallbladder again noted. No; pericholecystic fluid or gallbladder wall thickening is seen. There is a 1.4 cm; cyst in the right kidney. In addition, there is a 0.9 cm calculus in the right; mid kidney. This area is beyond the scan range from the CT study of August 232015. The right renal cyst appears to be visible on MRI scanning. No renal mass; lesion is observed. Delayed scan images show no filling defect in the collecting; system of either kidney. There are a few uterine calcifications. No uterine or; ovarian mass lesion is seen. A small amount of ascites is seen in the cul-de-sac; reflections of the pelvis. Small and large intestinal bowel loops are normal in; the abdomen and pelvis. Urinary bladder is intact. Bone window settings show no; bony destructive lesion.; ; Impression:; ; 1. Bilateral lower lobe plate-like atelectasis in the lungs.; ; 2. Extensive large infiltrative mass occupying much of the left and right lobe; of the liver unchanged from recent prior studies.; ; 3. Cholelithiasis.; ; 4. Small right renal cyst.; ; 5. 9 mm intrarenal nephrolithiasis right kidney without hydronephrosis.; ; 6. Small quantity of ascitic fluid.; ; ; Signed by; Vasiliy Mckeon MD 11/02/2016 05:42 P; Outcome: 15:44 CT Study completed. [facility] 19:51 Decision to Hospitalize by Provider. br1 22:10 Patient left the ED. [facility] Signatures: Dispatcher [employer] EDMS Marcio Vasquez, MASTER COOK MASTER COOK kb5 Ahsan Gomez MD MD br1 Eric Og, MASTER COOK MASTER COOK dd6 Kristina Patel RN RN jc4 Vivi Up, MASTER COOK MASTER COOK valerie Gayatri Jacobson, MASTER COOK MASTER COOK ct3 Nik Jones dem1 Pretty AlmarazRN RN [facility] Theresa Garcia RN RN 4 Tamika Lott jp5 MTDD
[2016-11-02 22:13] VITALS: BP 158/78
[2016-11-02] MEDS: SUCRALFATE SUSP 1GM/10ML UD PO SCH (22:36)
[2016-11-02] MEDS: PANTOPRAZOLE 40MG INJ (PROTONIX) (C9113) IV SCH (22:36)
--- NOTE | 2016-11-02 23:28 | HPE ---
DATE OF ADMISSION: 11/02/2016 PRIMARY CARE PROVIDER: Negrita Fox NP ONCOLOGIST: May Bo MD CHIEF COMPLAINT: Intractable nausea and vomiting for three days, inability to keep anything down, upper abdominal pain. 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 Currently on chemotherapy. Last chemotherapy was on 10/29/2016. Diabetes, hypertension, hypercholesterolemia, diabetic neuropathy, chronic obstructive pulmonary disease (COPD). HISTORY OF PRESENT ILLNESS: This is a 61-year-old female diagnosed with cholangiocarcinoma in the liver in August 2016, started on chemotherapy. Last chemotherapy was in 10/29/2016. The patient normally gets an antiemetic during therapy and then continues to take oral antiemetic after finishing the chemotherapy; however, this time she had an allergic reaction to the antiemetic agent and she was not given any oral antiemetic to take at home. 2 days after the chemotherapy, she started having nausea and threw up several time. She also had one episode of fever 101. She continued to be nauseous for the next 2 days with vomiting and inability to keep anything down, so she came to the emergency room today. In the emergency department (ED), she continued to have nausea but did not have vomiting. She complained of severe epigastric and right upper quadrant pain. In view of intractable nausea, vomiting, and abdominal pain, the patient is being admitted to the hospitalist service for further management. The patient had a CT scan of the abdomen done in the emergency room with contrast, which showed extensive large infiltrative mass occupying much of the left and the right lobe of the liver which is unchanged from the prior study, cholelithiasis, small quantity of ascitic fluid, small right renal cyst, and 9 mm intrarenal nephrolithiasis of the right without hydronephrosis. The patient was given Zofran and GI cocktail in the ED with resolution of her vomiting and also improvement in her nausea and some improvement in her abdominal pain. PAST SURGICAL HISTORY: Carpal tunnel repair. [id number]-[id number]. SOCIAL HISTORY: Does not smoke, use alcohol or recreational drugs. FAMILY HISTORY: Not pertinent. ALLERGIES: ASPIRIN causes rash. LATEX causes hives. PENICILLIN causes rash. EMEND causes wheezing. HOME MEDICATIONS: - albuterol 2 puffs inhalation every 4 hours as needed - Jardiance 25 mg by mouth daily - lispro insulin before meals as per sliding scale - omeprazole 20 mg by mouth daily - oxycodone/acetaminophen 10/325 one tablet by mouth every 6 hours as needed pain - Paxil 10 mg by mouth daily REVIEW OF SYSTEMS: The patient denies any fever or chills today and denied any chest pain, shortness of breath, cough, or phlegm. Has persistent nausea, upper abdominal pain, and vomiting. All other review of systems are negative. PHYSICAL EXAMINATION: Vital signs: Blood pressure 141/79, pulse 81, respiratory rate 18, temperature 98, pulse oximetry 95% on room air. General: The patient awake, alert, and oriented times three. Sitting up in bed in no acute distress. HEENT: Normocephalic, atraumatic. Moist mucous membranes. Anicteric eyes. CHEST: There are bilateral basal crackles; otherwise, clear to auscultation. CARDIOVASCULAR: S1, S2, regular. No rub, murmur, or gallop. ABDOMEN: Soft. There is tenderness in the epigastrium region in the right upper quadrant. Bowel sounds are normal. No guarding or rigidity. EXTREMITIES: No edema. LABORATORY DATA: WBC 6.1, hemoglobin 11.7, platelet 601. Sodium 132, potassium 4.6, chloride 93, bicarbonate 28, BUN 15, creatinine 0.6, glucose 307, lactic acid 1.5, calcium 8.4, AST 42, ALT 45, alkaline phosphatase 692, albumin 3. Urinalysis (UA) clean. ASSESSMENT AND PLAN: This is a 61-year-old female with cholangiocarcinoma admitted for intractable nausea, vomiting, possibly related to chemotherapy. PLAN: Intractable nausea and vomiting, chemotherapy related. We will keep the patient on clear liquids. Will given Reglan and Zofran. Epigastric pain, possibly gastritis as well as there is liver mass. Will give pantoprazole, sucralfate, and GI cocktail. Will also give Percocet for pain. Diabetes. Will continue with sliding scale insulin. Hypertension. Not on any medications at this point. Will continue to monitor. Hypercholesterolemia. Patient is supposed to be on statin; however, because of persistent vomiting, will hold at present. Deep venous thrombosis (DVT) prophylaxis has been ordered. GI prophylaxis has been ordered. COPD. Will continue with albuterol nebulizers as needed. Diabetic neuropathy. Used to be on gabapentin. Patient has not been taking that at present. Will continue to hold. MTDD
[2016-11-03] MEDS: METOCLOPRAMIDE INJ 10MG/2ML VIAL (J2765) IV SCH ×3 (00:12→09:04)
[2016-11-03 06:00] VITALS: BP 145/70
[2016-11-03 06:21] LABS: BASO % 0.8 % (0.0-1.0); EOS # 0.1 K/mm3 (0.0-0.50); LARGE UNSTAINED CELL # 0.1 K/mm3 (0.0-0.4); LARGE UNSTAINED CELL % 2.6 % (0.0-4.0); LYMPH % 31.8 % (24.0-44.0); MEAN CORPUSCULAR HEMOGLOBIN 25.5 pg (27.0-33.0); MEAN CORPUSCULAR HGB CONC 33.4 g/dl (32.0-36.5); MEAN CORPUSCULAR VOLUME 76.2 fl (80.0-96.0); MONO # 0.1 K/mm3 (0.0-0.8); MONO % 2.9 % (0.0-5.0); NEUTROPHILS # 1.9 K/mm3 (1.8-7.7); PLATELET COUNT, AUTOMATED 496 k/mm3 (150-450); RED CELL DISTRIBUTION WIDTH 15.3 % (11.5-14.5); WHITE BLOOD COUNT 3.1 K/mm3 (4.0-10.0)
[2016-11-03 06:24] LABS: NEUTROPHILS % 59.9 % (36.0-66.0)
[2016-11-03 06:33] LABS: ANION GAP 8 MEQ/L (8-16); BLOOD UREA NITROGEN 9 MG/DL (7-18); CALCIUM LEVEL 8.2 MG/DL (8.8-10.2); CARBON DIOXIDE LEVEL 30 MEQ/L (21-32); CHLORIDE LEVEL 101 MEQ/L (98-107); CREATININE FOR GFR 0.63 MG/DL (0.55-1.02); GLOMERULAR FILTRATION RATE > 60.0 (>45); GLUCOSE, FASTING 182 MG/DL (80-110); SODIUM LEVEL 139 MEQ/L (136-145)
--- NOTE | 2016-11-03 08:04 | ECGEPIP ---
Stationary ECG Study [facility] - ED Test Date: 2016-11-02 Pat Name: RACHELLE BURKETT Department: Room: - Gender: F Day Treatment Clinician/Art Therapist: fany : 1955 Requested By: PHILLIP Bentley Order Number: [id number] Reading MD: Rose Burgess Measurements Intervals Hughes Rate: 98 P: -14 KS: 137 QRS: -31 QRSD: 81 T: -32 QT: 340 QTc: 435 Interpretive Statements SINUS RHYTHM WITH OCCASIONAL VENTRICULAR PREMATURE COMPLEXES WITH OCCASIONAL SUPRAVENTRICULAR PREMATURE COMPLEXES POSSIBLE ANTERIOR MYOCARDIAL INFARCTION, PROBABLY OLD INFERIOR MYOCARDIAL INFARCTION, OF INDETERMINATE AGE LOW VOLTAGE Electronically Signed On 11-03-2016 8:03:48 EST by Rose Burgess
[2016-11-03] MEDS ORDERED: ENOXAPARIN 40 MG/0.4 ML SYRINGE (J1650) SC SCH (09:00)
[2016-11-03] MEDS: SUCRALFATE SUSP 1GM/10ML UD PO SCH ×2 (09:04→12:42)
[2016-11-03] MEDS: HumaLOG INSULIN (NovoLOG) PER UNIT SC SCH ×2 (09:05→12:42)
[2016-11-03] MEDS: PANTOPRAZOLE 40MG INJ (PROTONIX) (C9113) IV SCH (09:05)
[2016-11-03] MEDS ORDERED: METOCLOPRAMIDE INJ 10MG/2ML VIAL (J2765) IV PRN (09:15)
[2016-11-03] MEDS ORDERED: SUCR1TA PO (12:46)
--- NOTE | 2016-11-03 16:11 | DSES ---
DATE OF ADMISSION: 11/02/2016 DATE OF DISCHARGE: 11/03/2016 ATTENDING PHYSICIAN: Dr. Angie Curry DICTATING PROVIDER: Dr. Angie Curry PRIMARY CARE PROVIDER: Dr. May Bo REFERRING PHYSICIAN: None. CONSULTING PHYSICIAN: None. CONDITION ON DISCHARGE: Stable. FINAL DIAGNOSIS: Intractable nausea and vomiting, likely secondary to chemotherapy. PROCEDURES: None. HISTORY OF PRESENT ILLNESS: The patient is a 61-year-old female with a past medical history of cholangiocarcinoma in the liver, diagnosed in August 2016. She was started on chemotherapy. Last chemotherapy session was 10/29/2016. The patient normally gets an antiemetic during her therapy sessions and then continues to take oral antiemetics after finishing the chemotherapy; however, at this time, she had an allergic reaction to the antiemetic agent and was not given any oral antiemetics at that time. Two days after chemotherapy she started having nausea and threw up several times. She had one episode of fever of 101. She continued to be nauseous for the next two days with vomiting and inability to keep anything down, so she came to the emergency room. In the emergency room, she continued to have nausea but did not have any further vomiting. The patient was admitted for intractable nausea and vomiting secondary to chemotherapy. HOSPITALIZATION COURSE: 1. Intractable nausea and vomiting, likely secondary to chemotherapy. Throughout the hospital course, the patient was given Reglan, which improved her symptoms. The patient did not have any more nausea and vomiting and was able to tolerate breakfast. She was given lunch, consistent carbohydrate diet and did not have any symptoms. The patient was cleared for discharge home. 2. Epigastric pain, possibly secondary to gastritis, possibly secondary to liver mass. Continue with pain control and sucralfate by mouth. Provide her a prescription to take home. 3. Diabetes. Continue with insulin sliding scale. 4. Hypertension. Blood pressure is well controlled without any medications. 5. Dyslipidemia. The patient has not been on a statin. 6. Gastrointestinal prophylaxis. 7. Deep vein thrombosis (DVT) prophylaxis. 8. Chronic obstructive pulmonary disease (COPD). We will continue with albuterol nebulization. 9. Diabetic neuropathy. Continue with gabapentin. DISCHARGE MEDICATIONS: The patient will be discharged home with the following: - Ventolin two puffs inhaled every four hours as needed for shortness of breath - Empagliflozin 25 mg by mouth daily - Humalog as directed with meals - omeprazole 20 mg by mouth daily - Percocet 10/325 mg one tablet by mouth every six hours as needed for pain - paroxetine 10 mg by mouth daily as needed for depression New medications prescribed include: - Sucralfate 1 gram by mouth before food and nightly DISCHARGE INSTRUCTIONS: The patient was advised to followup with her primary care provider and oncologist within the next 7 days. She has been advised to remain compliant with treatment and medications and to call to schedule/confirm appointments. She has been advised to return to the emergency room if she experiences any problems. Time spent on discharge: 35 minutes.
--- NOTE | 2016-11-04 23:11 | EDDOCDS ---
Physician Documentation [facility] Name: Stephanie Arzate Age: 61 yrs Sex: Female : 1955 Arrival Date: 11/02/2016 Time: 11:12 Bed 1 Private MD: May Bo P. Disposition: 11/02/16 19:51 Hospitalization ordered by Dodie Medeiros for Inpatient Admission. Preliminary diagnosis are Generalized abdominal pain, Nausea and vomiting. - Bed requested for 4 [place]. - Status is Inpatient Admission. [facility] - Condition is Stable. - Problem is new. - Symptoms are unchanged. Historical: - Allergies: Aspirin (Rash); Latex (Hives); PENICILLINS (Rash); Emend (Wheezing); - Home Meds: 1. Jardiance 25 mg oral tab 1 tab once daily (Last dose: 11/01/2016) 2. Humalog 100 unit/mL Sub-Q soln sliding scale three times daily (Last dose: 11/01/2016) 3. oxycodone-acetaminophen 5-325 mg Oral tab 1 tab every 4 hours (Last dose: 11/01/2016) 4. Paxil 10 mg Oral tab 1 tab once daily (Last dose: 10/31/2016) 5. omeprazole 20 mg Oral cpDR 1 cap once daily (Last dose: Unknown) - PMHx: Cancer, Liver; COPD; Diabetes - IDDM: controlled; Hypertension; Hypercholesterolemia; Diabetic Neuropathy; - PSHx: Carpal Tunnel Repair- Right; Infusaport Placement; - Social history: Smoking status: Patient states was never smoker of tobacco. No barriers to communication noted, The patient speaks fluent Bel[place]ian. - Family history: Not pertinent. - : The pt / caregiver states he / she is not on anticoagulants. Home medication list is obtained from the patient. - Exposure Risk Screening:: None identified. Vital Signs: 11/02 11:13 BP 161 / 109; Pulse 105; Resp 18 S; Temp 98.0(O); Pulse Ox 100% on R/A; Weight 70.31 kg dd6 / 155.01 lbs (R); Height 5 ft. 3 in. (160.02 cm) (R); 11:45 BP 151 / 74 (auto/); cjh 11:46 Pulse 94 MON; Pulse Ox 95% ; cjh 12:00 BP 157 / 68 (auto/); cjh 12:15 BP 144 / 65 (auto/); cjh 12:16 Pulse 94 MON; Pulse Ox 94% ; cjh 12:30 BP 130 / 63 (auto/); cjh 12:31 Pulse 85 MON; Pulse Ox 94% ; cjh 12:45 BP 133 / 76 (auto/); cjh 12:46 Pulse 109 MON; Pulse Ox 96% ; cjh 13:00 BP 138 / 80 (auto/); cjh 13:01 Pulse 85 MON; Pulse Ox 95% ; cjh 13:15 BP 128 / 72 LA Supine (man/reg); ct3 13:15 BP 135 / 65 (auto/); cjh 13:16 Pulse 83 MON; Pulse Ox 94% ; cjh 13:36 Pulse 108 MON; Pulse Ox 94% ; cjh 13:37 BP 160 / 67 (auto/); cjh 13:52 BP 139 / 64 (auto/); cjh 13:52 Pulse 86 MON; Pulse Ox 91% ; cjh 14:07 BP 159 / 77 (auto/); cjh 14:07 Pulse 87 MON; Pulse Ox 95% ; cjh 14:22 BP 145 / 66 (auto/); cjh 14:22 Pulse 82 MON; Pulse Ox 94% ; cjh 14:36 Pulse 81 MON; Pulse Ox 95% ; cjh 14:37 BP 145 / 66; Pulse 80; Resp 16; Pulse Ox 95% ; Pain 2/10; cjh 14:37 BP 160 / 73 (auto/); cjh 14:51 Pulse 81 MON; Pulse Ox 96% ; cjh 14:52 BP 161 / 73 (auto/); cjh 15:06 Pulse 81 MON; Pulse Ox 95% ; cjh 15:07 BP 141 / 79 (auto/); cjh 15:22 BP 173 / 78 (auto/); cjh 15:22 Pulse 82 MON; Pulse Ox 94% ; cjh 15:37 BP 184 / 86 (auto/); cjh 15:37 Pulse 98 MON; Pulse Ox 91% ; cjh 15:39 BP 161 / 73 (auto/); cjh 15:39 Pulse 84 MON; Pulse Ox 92% ; cjh 15:52 BP 167 / 80 (auto/); cjh 15:52 Pulse 79 MON; Pulse Ox 93% ; cjh 16:37 BP 156 / 87 (auto/); cjh 16:37 Pulse 82 MON; Pulse Ox 95% ; cjh 16:52 BP 158 / 77 (auto/); cjh 16:52 Pulse 132 MON; Pulse Ox 96% ; cjh 17:07 BP 180 / 81 (auto/); cjh 17:07 Pulse 83 MON; Pulse Ox 95% ; cjh 17:22 BP 156 / 80 (auto/); cjh 17:23 Pulse 107 MON; Pulse Ox 97% ; cjh 17:37 BP 161 / 85 (auto/); cjh 17:37 Pulse 82 MON; Pulse Ox 95% ; cjh 18:07 BP 166 / 79 (auto/); cjh 18:07 Pulse 82 MON; Pulse Ox 93% ; cjh 18:22 BP 164 / 79 (auto/); cjh 18:22 Pulse 81 MON; Pulse Ox 93% ; cjh 18:37 BP 165 / 78 (auto/); cjh 18:37 Pulse 82 MON; Pulse Ox 95% ; cjh 18:52 BP 169 / 75 (auto/); cjh 18:52 Pulse 79 MON; Pulse Ox 92% ; cjh 19:07 BP 189 / 90 (auto/); cjh 19:07 Pulse 79 MON; Pulse Ox 94% ; cjh 19:22 BP 167 / 72 (auto/); cjh 19:22 Pulse 77 MON; Pulse Ox 92% ; cjh 19:37 BP 171 / 82 (auto/); cjh 19:37 Pulse 77 MON; Pulse Ox 92% ; cjh 20:37 BP 168 / 77 (auto/); cjh 20:38 Pulse 78 MON; Pulse Ox 93% ; cjh 20:52 BP 153 / 69 (auto/); cjh 20:52 Pulse 78 MON; Pulse Ox 92% ; cjh 21:02 BP 157 / 77 (auto/); cjh 21:02 Pulse 77 MON; Pulse Ox 93% ; cjh 21:03 BP 157 / 77; Pulse 82; Resp 18; Temp 97.9(TE); Pulse Ox 95% on R/A; Pain 2/10; valerie 21:07 BP 159 / 71 (auto/); cjh 21:07 Pulse 77 MON; Pulse Ox 93% ; cjh 21:21 Pulse 77 MON; Pulse Ox 92% ; cjh 21:22 BP 171 / 77 (auto/); cjh 21:37 BP 150 / 68 (auto/); cjh 21:37 Pulse 85 MON; Pulse Ox 94% ; cjh 21:52 BP 152 / 65 (auto/); cjh 21:53 Pulse 78 MON; Pulse Ox 93% ; cjh 11:13 Body Mass Index 27.46 (70.31 kg, 160.02 cm) dd6 MDM: 11:27 NS 0.9% 500 ml IV at bolus once ordered. fg 11:27 IV Saline Lock ordered. fg 11:27 Undress patient appropriately for examination ordered. fg 11:27 Ondansetron 4 mg IVP once ordered. fg 11:28 Basic Metabolic Profile Ordered. EDMS 11:28 CBC with Diff Ordered. EDMS 11:28 Lipase Ordered. EDMS 11:28 Liver Profile Ordered. EDMS 11:28 Troponin Ordered. EDMS 11:28 Urinalysis Ordered. EDMS 11:28 Urine Culture Ordered. EDMS 11:29 NOTHING BY MOUTH+DIET ordered. EDMS 11:29 ECG WITH READING ER PHYS+CARDIAG ordered. EDMS 11:48 -Blood Culture (Adults Only), peripheral from different site, or from device/port/PICC fg etc. if present ordered. 11:48 -Blood Culture Ordered. EDMS 11:48 Lactic Acid ([place] tube on ice) Ordered. EDMS 11:51 -Blood Culture (Adults Only), peripheral from different site, or from device/port/PICC deg etc. if present complete. 11:52 BLOOD CULTURES Ordered. EDMS 12:07 Medical Records Supervisor/Pulse Ox/q 30 min VS ordered. br1 12:07 [facility]. Nursing Order ordered. br1 12:59 [facility] Payment Agreement was scanned into [employer] and attached to record. jp5 13:25 NS 0.9% 1000 ml IV at 150 mL/hr continuous ordered. br1 13:25 Chest, 2 View (pa\E\lat) Ordered. EDMS 13:26 morphine 4 mg IVP once ordered. br1 13:32 CT ABD & PELVIS: IV and Oral Contrast Ordered. EDMS 13:44 Financial registration complete. jp5 13:55 Diatrizoate Meglumine & Sodium Liquid 10 ml PO once; mix in 290cc of water ordered. cjh 13:55 Diatrizoate Meglumine & Sodium Liquid 10 ml PO once; mix in 290cc of water ordered. cjh 15:12 Basic Metabolic Profile Reviewed. br1 15:12 CBC with Diff Reviewed. br1 15:12 Liver Profile Reviewed. br1 15:12 Urinalysis Reviewed. br1 15:12 Lipase Reviewed. br1 15:12 Troponin Reviewed. br1 15:12 Lactic Acid ([place] tube on ice) Reviewed. br1 16:23 Fluid Challenge ordered. br1 17:46 Ondansetron 4 mg IVP once ordered. br1 18:24 morphine 4 mg IVP once ordered. br1 19:38 GI Cocktail - (Alum-Mag Hydroxide-Simeth 30 ml, Lidocaine 10 ml, Hyoscyamine 10 ml) PO br1 once; Pre-mixed 50mL unit dose ordered. 19:38 BED REQUEST+ADM ordered. EDMS 20:32 CBC WITH DIFFERENTIAL Ordered. EDMS 20:32 BASIC METABOLIC PROFILE Ordered. EDMS 20:34 Admission / Observation Status ordered. EDMS 20:34 OTHER CUSTOM DIETS ordered. EDMS 11/03 09:12 T-Sheet-- Draft Copy was scanned into [employer] and attached to record. 09:13 ECG/EKG was scanned into [employer] and attached to record. Administered Medications: 11/02 12:20 Drug: Ondansetron 4 mg Route: IVP; Site: right forearm; [facility] 12:21 Drug: NS 0.9% 500 ml Route: IV; Rate: bolus; Site: right forearm; [facility] 22:01 Follow up: IV Status: Completed infusion; IV Intake: 500ml [facility] 13:54 Drug: morphine 4 mg Route: IVP; Site: right forearm; [facility] 14:37 Follow up: Response: No Adverse Reaction; Pain is decreased [facility] 13:55 Drug: NS 0.9% 1000 ml Route: IV; Rate: 150 mL/hr; Site: right forearm; [facility] 22:01 Follow up: IV Status: Completed infusion; IV Intake: 1000ml [facility] 14:05 Drug: Diatrizoate Meglumine & Sodium 10 ml [diatrizoate meglumine and diat.sodium 66 h %-10 % oral solution (10 mL)] Route: PO; 14:37 Drug: Diatrizoate Meglumine & Sodium 10 ml [diatrizoate meglumine and diat.sodium 66 cjh %-10 % oral solution (10 mL)] Route: PO; 17:52 Drug: Ondansetron 4 mg Route: IVP; Site: right antecubital; mk4 18:52 Drug: morphine 4 mg Route: IVP; Site: right forearm; [facility] 22:00 Follow up: Response: No Adverse Reaction; No significant change. [facility] 19:55 Drug: GI Cocktail - (Alum-Mag Hydroxide-Simeth Suspension 225 mg-200 mg-25 mg/5 mL 30 cjh ml, Lidocaine Liquid 2 % 10 ml, Hyoscyamine Liquid 10 ml) Route: PO; 22:00 Follow up: Response: No Adverse Reaction; Pain is decreased [facility] Signatures: Dispatcher [employer] EDMS Kalli Andrade, Buffet Attendant Unit deg Selina Farr, Reg Reg gb Damien, Kimberly, Buffet Attendant Unit ml3 Ahsan Gomez MD MD br1 Kristina Patel RN RN [id number] Pretty Almaraz RN RN [facility] Tamika Lott jp5 Qi Barkley MD MD Theresa Garcia RN mk4 The chart was reviewed and I authenticate all verbal orders and agree with the evaluation and treatment provided.Attachments: 12:59 [facility] Payment Agreement jp5 11/03 09:12 T-Sheet-- Draft Copy gb 09:13 ECG/EKG Chart Complete MTDD
--- NOTE | 2016-11-04 23:11 | EDDOCDS ---
Physician Documentation [facility], [place] Name: Stephanie Arzate Age: 61 yrs Sex: Female : 1955 Arrival Date: 11/02/2016 Time: 11:12 Bed 1 Private MD: May Bo P. Disposition: 11/02/16 19:51 Hospitalization ordered by Dodie Medeiros for Inpatient Admission. Preliminary diagnosis are Generalized abdominal pain, Nausea and vomiting. - Bed requested for 4 Dwarf. - Status is Inpatient Admission. [facility] - Condition is Stable. - Problem is new. - Symptoms are unchanged. Historical: - Allergies: Aspirin (Rash); Latex (Hives); PENICILLINS (Rash); Emend (Wheezing); - Home Meds: 1. Jardiance 25 mg oral tab 1 tab once daily (Last dose: 11/01/2016) 2. Humalog 100 unit/mL Sub-Q soln sliding scale three times daily (Last dose: 11/01/2016) 3. oxycodone-acetaminophen 5-325 mg Oral tab 1 tab every 4 hours (Last dose: 11/01/2016) 4. Paxil 10 mg Oral tab 1 tab once daily (Last dose: 10/31/2016) 5. omeprazole 20 mg Oral cpDR 1 cap once daily (Last dose: Unknown) - PMHx: Cancer, Liver; COPD; Diabetes - IDDM: controlled; Hypertension; Hypercholesterolemia; Diabetic Neuropathy; - PSHx: Carpal Tunnel Repair- Right; Infusaport Placement; - Social history: Smoking status: Patient states was never smoker of tobacco. No barriers to communication noted, The patient speaks fluent Welsh. - Family history: Not pertinent. - : The pt / caregiver states he / she is not on anticoagulants. Home medication list is obtained from the patient. - Exposure Risk Screening:: None identified. Vital Signs: 11/02 11:13 BP 161 / 109; Pulse 105; Resp 18 S; Temp 98.0(O); Pulse Ox 100% on R/A; Weight 70.31 kg dd6 / 155.01 lbs (R); Height 5 ft. 3 in. (160.02 cm) (R); 11:45 BP 151 / 74 (auto/); cjh 11:46 Pulse 94 MON; Pulse Ox 95% ; cjh 12:00 BP 157 / 68 (auto/); cjh 12:15 BP 144 / 65 (auto/); cjh 12:16 Pulse 94 MON; Pulse Ox 94% ; cjh 12:30 BP 130 / 63 (auto/); cjh 12:31 Pulse 85 MON; Pulse Ox 94% ; cjh 12:45 BP 133 / 76 (auto/); cjh 12:46 Pulse 109 MON; Pulse Ox 96% ; cjh 13:00 BP 138 / 80 (auto/); cjh 13:01 Pulse 85 MON; Pulse Ox 95% ; cjh 13:15 BP 128 / 72 LA Supine (man/reg); ct3 13:15 BP 135 / 65 (auto/); cjh 13:16 Pulse 83 MON; Pulse Ox 94% ; cjh 13:36 Pulse 108 MON; Pulse Ox 94% ; cjh 13:37 BP 160 / 67 (auto/); cjh 13:52 BP 139 / 64 (auto/); cjh 13:52 Pulse 86 MON; Pulse Ox 91% ; cjh 14:07 BP 159 / 77 (auto/); cjh 14:07 Pulse 87 MON; Pulse Ox 95% ; cjh 14:22 BP 145 / 66 (auto/); cjh 14:22 Pulse 82 MON; Pulse Ox 94% ; cjh 14:36 Pulse 81 MON; Pulse Ox 95% ; cjh 14:37 BP 145 / 66; Pulse 80; Resp 16; Pulse Ox 95% ; Pain 2/10; cjh 14:37 BP 160 / 73 (auto/); cjh 14:51 Pulse 81 MON; Pulse Ox 96% ; cjh 14:52 BP 161 / 73 (auto/); cjh 15:06 Pulse 81 MON; Pulse Ox 95% ; cjh 15:07 BP 141 / 79 (auto/); cjh 15:22 BP 173 / 78 (auto/); cjh 15:22 Pulse 82 MON; Pulse Ox 94% ; cjh 15:37 BP 184 / 86 (auto/); cjh 15:37 Pulse 98 MON; Pulse Ox 91% ; cjh 15:39 BP 161 / 73 (auto/); cjh 15:39 Pulse 84 MON; Pulse Ox 92% ; cjh 15:52 BP 167 / 80 (auto/); cjh 15:52 Pulse 79 MON; Pulse Ox 93% ; cjh 16:37 BP 156 / 87 (auto/); cjh 16:37 Pulse 82 MON; Pulse Ox 95% ; cjh 16:52 BP 158 / 77 (auto/); cjh 16:52 Pulse 132 MON; Pulse Ox 96% ; cjh 17:07 BP 180 / 81 (auto/); cjh 17:07 Pulse 83 MON; Pulse Ox 95% ; cjh 17:22 BP 156 / 80 (auto/); cjh 17:23 Pulse 107 MON; Pulse Ox 97% ; cjh 17:37 BP 161 / 85 (auto/); cjh 17:37 Pulse 82 MON; Pulse Ox 95% ; cjh 18:07 BP 166 / 79 (auto/); cjh 18:07 Pulse 82 MON; Pulse Ox 93% ; cjh 18:22 BP 164 / 79 (auto/); cjh 18:22 Pulse 81 MON; Pulse Ox 93% ; cjh 18:37 BP 165 / 78 (auto/); cjh 18:37 Pulse 82 MON; Pulse Ox 95% ; cjh 18:52 BP 169 / 75 (auto/); cjh 18:52 Pulse 79 MON; Pulse Ox 92% ; cjh 19:07 BP 189 / 90 (auto/); cjh 19:07 Pulse 79 MON; Pulse Ox 94% ; cjh 19:22 BP 167 / 72 (auto/); cjh 19:22 Pulse 77 MON; Pulse Ox 92% ; cjh 19:37 BP 171 / 82 (auto/); cjh 19:37 Pulse 77 MON; Pulse Ox 92% ; cjh 20:37 BP 168 / 77 (auto/); cjh 20:38 Pulse 78 MON; Pulse Ox 93% ; cjh 20:52 BP 153 / 69 (auto/); cjh 20:52 Pulse 78 MON; Pulse Ox 92% ; cjh 21:02 BP 157 / 77 (auto/); cjh 21:02 Pulse 77 MON; Pulse Ox 93% ; cjh 21:03 BP 157 / 77; Pulse 82; Resp 18; Temp 97.9(TE); Pulse Ox 95% on R/A; Pain 2/10; valerie 21:07 BP 159 / 71 (auto/); cjh 21:07 Pulse 77 MON; Pulse Ox 93% ; cjh 21:21 Pulse 77 MON; Pulse Ox 92% ; cjh 21:22 BP 171 / 77 (auto/); cjh 21:37 BP 150 / 68 (auto/); cjh 21:37 Pulse 85 MON; Pulse Ox 94% ; cjh 21:52 BP 152 / 65 (auto/); cjh 21:53 Pulse 78 MON; Pulse Ox 93% ; cjh 11:13 Body Mass Index 27.46 (70.31 kg, 160.02 cm) dd6 MDM: 11:27 NS 0.9% 500 ml IV at bolus once ordered. fg 11:27 IV Saline Lock ordered. fg 11:27 Undress patient appropriately for examination ordered. fg 11:27 Ondansetron 4 mg IVP once ordered. fg 11:28 Basic Metabolic Profile Ordered. EDMS 11:28 CBC with Diff Ordered. EDMS 11:28 Lipase Ordered. EDMS 11:28 Liver Profile Ordered. EDMS 11:28 Troponin Ordered. EDMS 11:28 Urinalysis Ordered. EDMS 11:28 Urine Culture Ordered. EDMS 11:29 NOTHING BY MOUTH+DIET ordered. EDMS 11:29 ECG WITH READING ER PHYS+CARDIAG ordered. EDMS 11:48 -Blood Culture (Adults Only), peripheral from different site, or from device/port/PICC fg etc. if present ordered. 11:48 -Blood Culture Ordered. EDMS 11:48 Lactic Acid (Juarez tube on ice) Ordered. EDMS 11:51 -Blood Culture (Adults Only), peripheral from different site, or from device/port/PICC deg etc. if present complete. 11:52 BLOOD CULTURES Ordered. EDMS 12:07 Rn Private Duty/Pulse Ox/q 30 min VS ordered. br1 12:07 [facility] [place] Order ordered. br1 12:59 [facility] Payment Agreement was scanned into [email or web address] and attached to record. jp5 13:25 NS 0.9% 1000 ml IV at 150 mL/hr continuous ordered. br1 13:25 Chest, 2 View (pa\E\lat) Ordered. EDMS 13:26 morphine 4 mg IVP once ordered. br1 13:32 CT ABD & PELVIS: IV and Oral Contrast Ordered. EDMS 13:44 Financial registration complete. jp5 13:55 Diatrizoate Meglumine & Sodium Liquid 10 ml PO once; mix in 290cc of water ordered. cjh 13:55 Diatrizoate Meglumine & Sodium Liquid 10 ml PO once; mix in 290cc of water ordered. cjh 15:12 Basic Metabolic Profile Reviewed. br1 15:12 CBC with Diff Reviewed. br1 15:12 Liver Profile Reviewed. br1 15:12 Urinalysis Reviewed. br1 15:12 Lipase Reviewed. br1 15:12 Troponin Reviewed. br1 15:12 Lactic Acid (Juarez tube on ice) Reviewed. br1 16:23 Fluid Challenge ordered. br1 17:46 Ondansetron 4 mg IVP once ordered. br1 18:24 morphine 4 mg IVP once ordered. br1 19:38 GI Cocktail - (Alum-Mag Hydroxide-Simeth 30 ml, Lidocaine 10 ml, Hyoscyamine 10 ml) PO br1 once; Pre-mixed 50mL unit dose ordered. 19:38 BED REQUEST+ADM ordered. EDMS 20:32 CBC WITH DIFFERENTIAL Ordered. EDMS 20:32 BASIC METABOLIC PROFILE Ordered. EDMS 20:34 Admission / Observation Status ordered. EDMS 20:34 OTHER CUSTOM DIETS ordered. EDMS 11/03 09:12 T-Sheet-- Draft Copy was scanned into [email or web address] and attached to record. 09:13 ECG/EKG was scanned into [email or web address] and attached to record. Administered Medications: 11/02 12:20 Drug: Ondansetron 4 mg Route: IVP; Site: right forearm; [facility] 12:21 Drug: NS 0.9% 500 ml Route: IV; Rate: bolus; Site: right forearm; [facility] 22:01 Follow up: IV Status: Completed infusion; IV Intake: 500ml [facility] 13:54 Drug: morphine 4 mg Route: IVP; Site: right forearm; [facility] 14:37 Follow up: Response: No Adverse Reaction; Pain is decreased [facility] 13:55 Drug: NS 0.9% 1000 ml Route: IV; Rate: 150 mL/hr; Site: right forearm; [facility] 22:01 Follow up: IV Status: Completed infusion; IV Intake: 1000ml [facility] 14:05 Drug: Diatrizoate Meglumine & Sodium 10 ml [diatrizoate meglumine and diat.sodium 66 h %-10 % oral solution (10 mL)] Route: PO; 14:37 Drug: Diatrizoate Meglumine & Sodium 10 ml [diatrizoate meglumine and diat.sodium 66 cjh %-10 % oral solution (10 mL)] Route: PO; 17:52 Drug: Ondansetron 4 mg Route: IVP; Site: right antecubital; mk4 18:52 Drug: morphine 4 mg Route: IVP; Site: right forearm; [facility] 22:00 Follow up: Response: No Adverse Reaction; No significant change. [facility] 19:55 Drug: GI Cocktail - (Alum-Mag Hydroxide-Simeth Suspension 225 mg-200 mg-25 mg/5 mL 30 cjh ml, Lidocaine Liquid 2 % 10 ml, Hyoscyamine Liquid 10 ml) Route: PO; 22:00 Follow up: Response: No Adverse Reaction; Pain is decreased [facility] Signatures: Dispatcher [employer] EDMS Kalli Andrade, Liquor Store Manager Unit deg Selina Farr, Reg Reg gb Damien, Kimberly, Liquor Store Manager Unit ml3 Ahsan Gomez MD MD br1 Kristina Patel RN RN jc4 Pretty Almaraz RN RN [facility] Tamika Lott jp5 Qi Barkley MD MD Theresa Garcia RN mk4 The chart was reviewed and I authenticate all verbal orders and agree with the evaluation and treatment provided.Attachments: 12:59 [facility] Payment Agreement jp5 11/03 09:12 T-Sheet-- Draft Copy gb 09:13 ECG/EKG Chart Complete MTDD
--- NOTE | 2016-11-04 23:11 | EDDOCDS ---
Nurse's Notes [facility] Name: Stephanie Arzate Age: 61 yrs Sex: Female : 1955 Arrival Date: 11/02/2016 Time: 11:12 Bed 1 Private MD: May Bo P. Diagnosis: Generalized abdominal pain;Nausea and vomiting Presentation: 11/02 11:15 Presenting complaint: Patient states: "I've been vomiting since late Wednesday and I jc4 vomited once this morning. I had a temperature of 101.2 on Wednesday but haven't any since then. I called my oncologist who told me to come in for hydration". Adult Sepsis Screening: The patient does not have new or worsening altered mentation. Patient's respiratory rate is less than 22. Systolic blood pressure is greater than 100. Patient has a qSOFA score of 0- Negative Sepsis Screen. Suicide/Homicide risk assessment- the patient denies having any suicidal and/or homicidal ideations and does not present with any other emotional, behavioral or mental health complaints. 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 Transition of care: patient was not received from another setting of care. 11:15 Acuity: MAURICIO Level 3 jc4 11:15 Method Of Arrival: Walkin/Carried/Asstd 4 11:15 Red Flag criteria, patient assessed and taken directly to a bed. jc4 11:21 Presenting complaint: currently undergoing chemotherapy for Liver Cancer. Followed by jc4 Dr. Bo. Triage Assessment: 11:21 General: Appears in no apparent distress. Pain: Pain currently is 4 out of 10 on a pain jc4 scale. HIV screening NA for this visit Offered previously. Historical: - Allergies: Aspirin (Rash); Latex (Hives); PENICILLINS (Rash); Emend (Wheezing); - Home Meds: 1. Jardiance 25 mg oral tab 1 tab once daily (Last dose: 11/01/2016) 2. Humalog 100 unit/mL Sub-Q soln sliding scale three times daily (Last dose: 11/01/2016) 3. oxycodone-acetaminophen 5-325 mg Oral tab 1 tab every 4 hours (Last dose: 11/01/2016) 4. Paxil 10 mg Oral tab 1 tab once daily (Last dose: 10/31/2016) 5. omeprazole 20 mg Oral cpDR 1 cap once daily (Last dose: Unknown) - PMHx: Cancer, Liver; COPD; Diabetes - IDDM: controlled; Hypertension; Hypercholesterolemia; Diabetic Neuropathy; - PSHx: Carpal Tunnel Repair- Right; Infusaport Placement; - Social history: Smoking status: Patient states was never smoker of tobacco. No barriers to communication noted, The patient speaks fluent Mongolian. - Family history: Not pertinent. - : The pt / caregiver states he / she is not on anticoagulants. Home medication list is obtained from the patient. - Exposure Risk Screening:: None identified. Screenin:44 Screening information is obtained from the patient. Fall risk: No risks identified. [facility] Assistance ADL's: requires no assistance with activities of daily living. Abuse/DV Screen: The patient / caregiver reports he/she is: not in a situation that causes fear, pain or injury. Nutritional screening: No deficits noted. Advance Directives: There is no active DNR order. home support is adequate. Assessment: 11:30 General: Appears in no apparent distress, comfortable, Behavior is appropriate for age, cjh cooperative. Neurological: Level of Consciousness is awake, alert, Oriented to person, place, time. Respiratory: Airway is patent Respiratory effort is even, unlabored, Respiratory pattern is regular, symmetrical. GI: Abdomen is non- distended Bowel sounds present X 4 quads. Abd is non tender X 4 quads Reports nausea. Derm: Skin is pink, warm & dry. Musculoskeletal: Range of motion intact in all extremities. 12:00 General: assisted OOB to BSC, tolerated without distress, urine sample obtained. [facility] 13:00 General: resting quietly, states nausea has improved, no new changes. [facility] 14:00 General: drinking contrast, no new complaints, will continue to monitor. [facility] 15:42 General: returned from CT, tolerated well, denies further needs. [facility] 16:30 General: no changes from previous, awaiting results, denies needs at this time. [facility] 17:52 General: Appears uncomfortable, Behavior is cooperative. General: medicated for nausea. mk4 Pain: Location: abdomen Pain currently is 6 out of 10 on a pain scale. 18:53 General: medicated for pain, patient is quiet, son at bedside, waiting dispo. [facility] 19:56 General: no new problems or complaints, taking meds without difficulty, awaiting [facility] admission. 20:30 General: state nauseous briefly after GI cocktail but better now than before. [facility] Vital Signs: 11:13 BP 161 / 109; Pulse 105; Resp 18 S; Temp 98.0(O); Pulse Ox 100% on R/A; Weight 70.31 kg dd6 (R); Height 5 ft. 3 in. (160.02 cm) (R); 11:45 BP 151 / 74 (auto/); cjh 11:46 Pulse 94 MON; Pulse Ox 95% ; cjh 12:00 BP 157 / 68 (auto/); cjh 12:15 BP 144 / 65 (auto/); cjh 12:16 Pulse 94 MON; Pulse Ox 94% ; cjh 12:30 BP 130 / 63 (auto/); cjh 12:31 Pulse 85 MON; Pulse Ox 94% ; cjh 12:45 BP 133 / 76 (auto/); cjh 12:46 Pulse 109 MON; Pulse Ox 96% ; cj 13:00 BP 138 / 80 (auto/); cjh 13:01 Pulse 85 MON; Pulse Ox 95% ; cjh 13:15 BP 128 / 72 LA Supine (man/reg); ct3 13:15 BP 135 / 65 (auto/); cjh 13:16 Pulse 83 MON; Pulse Ox 94% ; cjh 13:36 Pulse 108 MON; Pulse Ox 94% ; cjh 13:37 BP 160 / 67 (auto/); cjh 13:52 BP 139 / 64 (auto/); cjh 13:52 Pulse 86 MON; Pulse Ox 91% ; cjh 14:07 BP 159 / 77 (auto/); cjh 14:07 Pulse 87 MON; Pulse Ox 95% ; cjh 14:22 BP 145 / 66 (auto/); cjh 14:22 Pulse 82 MON; Pulse Ox 94% ; cjh 14:36 Pulse 81 MON; Pulse Ox 95% ; cjh 14:37 BP 145 / 66; Pulse 80; Resp 16; Pulse Ox 95% ; Pain 2/10; cjh 14:37 BP 160 / 73 (auto/); cjh 14:51 Pulse 81 MON; Pulse Ox 96% ; cjh 14:52 BP 161 / 73 (auto/); cjh 15:06 Pulse 81 MON; Pulse Ox 95% ; cjh 15:07 BP 141 / 79 (auto/); cjh 15:22 BP 173 / 78 (auto/); cjh 15:22 Pulse 82 MON; Pulse Ox 94% ; cjh 15:37 BP 184 / 86 (auto/); cjh 15:37 Pulse 98 MON; Pulse Ox 91% ; cjh 15:39 BP 161 / 73 (auto/); cjh 15:39 Pulse 84 MON; Pulse Ox 92% ; cjh 15:52 BP 167 / 80 (auto/); cjh 15:52 Pulse 79 MON; Pulse Ox 93% ; cjh 16:37 BP 156 / 87 (auto/); cjh 16:37 Pulse 82 MON; Pulse Ox 95% ; cjh 16:52 BP 158 / 77 (auto/); cjh 16:52 Pulse 132 MON; Pulse Ox 96% ; cjh 17:07 BP 180 / 81 (auto/); cjh 17:07 Pulse 83 MON; Pulse Ox 95% ; cjh 17:22 BP 156 / 80 (auto/); cjh 17:23 Pulse 107 MON; Pulse Ox 97% ; cjh 17:37 BP 161 / 85 (auto/); cjh 17:37 Pulse 82 MON; Pulse Ox 95% ; cjh 18:07 BP 166 / 79 (auto/); cjh 18:07 Pulse 82 MON; Pulse Ox 93% ; cjh 18:22 BP 164 / 79 (auto/); cjh 18:22 Pulse 81 MON; Pulse Ox 93% ; cjh 18:37 BP 165 / 78 (auto/); cjh 18:37 Pulse 82 MON; Pulse Ox 95% ; cjh 18:52 BP 169 / 75 (auto/); cjh 18:52 Pulse 79 MON; Pulse Ox 92% ; cjh 19:07 BP 189 / 90 (auto/); cjh 19:07 Pulse 79 MON; Pulse Ox 94% ; cjh 19:22 BP 167 / 72 (auto/); cjh 19:22 Pulse 77 MON; Pulse Ox 92% ; cjh 19:37 BP 171 / 82 (auto/); cjh 19:37 Pulse 77 MON; Pulse Ox 92% ; cjh 20:37 BP 168 / 77 (auto/); cjh 20:38 Pulse 78 MON; Pulse Ox 93% ; cjh 20:52 BP 153 / 69 (auto/); cjh 20:52 Pulse 78 MON; Pulse Ox 92% ; cjh 21:02 BP 157 / 77 (auto/); cjh 21:02 Pulse 77 MON; Pulse Ox 93% ; cjh 21:03 BP 157 / 77; Pulse 82; Resp 18; Temp 97.9(TE); Pulse Ox 95% on R/A; Pain 2/10; valerie 21:07 BP 159 / 71 (auto/); cjh 21:07 Pulse 77 MON; Pulse Ox 93% ; cjh 21:21 Pulse 77 MON; Pulse Ox 92% ; cjh 21:22 BP 171 / 77 (auto/); cjh 21:37 BP 150 / 68 (auto/); cjh 21:37 Pulse 85 MON; Pulse Ox 94% ; cjh 21:52 BP 152 / 65 (auto/); cjh 21:53 Pulse 78 MON; Pulse Ox 93% ; cjh 11:13 Body Mass Index 27.46 (70.31 kg, 160.02 cm) dd6 Vitals: 11:13 Log In Time: November 02, 2016 at 11:11. dd6 ED Course: 11:13 Patient visited by Eric Og PCA. dd6 11:13 May Bo is Private Physician. dd6 11:13 Patient moved to Waiting dd6 11:16 Triage Initiated jc4 11:25 Patient moved to 1 jc4 11:42 EKG done. (by ED staff). Reviewed by Qi Barkley MD. dem1 11:44 Pt greeted and oriented to ED. Patient advised of names of staff involved in care, dem1 location of call naylor, wait times and NPO status. Patient has correct armband on for positive identification. Placed in gown. Bed in low position. Call light in reach. Side rails up X 1. laboratory monitor on. Pulse ox on. NIBP on. 11:45 Patient visited by Nik Jones. dem1 12:20 Lactic Acid (Juarez tube on ice) Sent. cjh 12:21 Basic Metabolic Profile Sent. cjh 12:21 CBC with Diff Sent. cjh 12:21 Lipase Sent. cjh 12:21 Liver Profile Sent. cjh 12:21 Troponin Sent. cjh 12:21 Urinalysis Sent. cjh 12:21 Urine Culture Sent. cjh 12:36 Patient visited by Pretty Almaraz RN. cj 12:59 [facility] Payment Agreement was scanned into [employer] and attached to record. jp5 13:02 Ahsan Gomez MD is Attending Physician. br1 13:15 Patient visited by Gayatri Jacobson PCA. ct3 13:24 Patient visited by Ahsan Gomez MD. br1 13:56 Patient visited by Pretty Almaraz RN. cj 14:38 Patient visited by Pretty Almaraz RN. cj 15:13 Patient visited by Gayatri Jacobson PCA. ct3 15:13 Chest, 2 View (pa\\E\\lat) Returned. EDMS 15:44 The patient / caregiver is instructed regarding the plan of care and ED course. cjh 15:44 Inserted saline lock: 20 gauge in right forearm and blood collected. The patient [facility] tolerated the procedure well. Labs drawn. (by ED staff). Sent per order to lab. Labs/Blood culture drawn Urine collected. Clean catch specimen. Urine specimen sent to lab. 15:46 Patient visited by Pretty Almaraz RN. cj 16:40 CT ABD & PELVIS: IV and Oral Contrast Returned. EDMS 16:42 Patient visited by Gayatri Jacobson PCA. ct3 17:14 Patient visited by Gayatri Jacobson PCA. ct3 17:46 Patient visited by Ahsan Gomez MD. br1 18:21 Patient visited by Gayatri Jacobson PCA. ct3 18:52 Patient visited by Pretty Almaraz RN. cj 19:13 Patient visited by Marcio Vasquez PCA. kb5 19:48 Patient visited by Ahsan Gomez MD. br1 19:51 Dodie Medeiros is Hospitalizing Provider. br1 20:11 Patient visited by Marcio Vasquez PCA. kb5 21:04 Patient visited by Vivi Up PCA. valerie 11/03 09:12 T-Sheet-- Draft Copy was scanned into [employer] and attached to record. gb 09:13 ECG/EKG was scanned into [employer] and attached to record. gb Administered Medications: 11/02 12:20 Drug: Ondansetron 4 mg Route: IVP; Site: right forearm; [facility] 12:21 Drug: NS 0.9% 500 ml Route: IV; Rate: bolus; Site: right forearm; [facility] 22:01 Follow up: IV Status: Completed infusion; IV Intake: 500ml [facility] 13:54 Drug: morphine 4 mg Route: IVP; Site: right forearm; [facility] 14:37 Follow up: Response: No Adverse Reaction; Pain is decreased [facility] 13:55 Drug: NS 0.9% 1000 ml Route: IV; Rate: 150 mL/hr; Site: right forearm; [facility] 22:01 Follow up: IV Status: Completed infusion; IV Intake: 1000ml [facility] 14:05 Drug: Diatrizoate Meglumine & Sodium 10 ml [diatrizoate meglumine and diat.sodium 66 cjh %-10 % oral solution (10 mL)] Route: PO; 14:37 Drug: Diatrizoate Meglumine & Sodium 10 ml [diatrizoate meglumine and diat.sodium 66 cjh %-10 % oral solution (10 mL)] Route: PO; 17:52 Drug: Ondansetron 4 mg Route: IVP; Site: right antecubital; 4 18:52 Drug: morphine 4 mg Route: IVP; Site: right forearm; [facility] 22:00 Follow up: Response: No Adverse Reaction; No significant change. [facility] 19:55 Drug: GI Cocktail - (Alum-Mag Hydroxide-Simeth Suspension 225 mg-200 mg-25 mg/5 mL 30 cjh ml, Lidocaine Liquid 2 % 10 ml, Hyoscyamine Liquid 10 ml) Route: PO; 22:00 Follow up: Response: No Adverse Reaction; Pain is decreased [facility] Intake: 22:01 IV: 500.00ml; Total: 500.00ml. [facility] 22:01 IV: 1000.00ml; Total: 1500.00ml. [facility] Order Results: Lab Order: Basic Metabolic Profile; SPEC'M 11/02/16 12:13 Test: GLUCOSE, FASTING; Value: 307; Range: 80-110; Abnormal: Above high normal; Units: MG/DL; Status: F Test: BLOOD UREA NITROGEN; Value: 15; Range: 7-18; Units: MG/DL; Status: F Test: CREATININE FOR GFR; Value: 0.68; Range: 0.55-1.02; Units: MG/DL; Status: F Test: GLOMERULAR FILTRATION RATE; Value: > 60.0; Range: >45; Status: F Test: SODIUM LEVEL; Value: 132; Range: 136-145; Abnormal: Below low normal; Units: MEQ/L; Status: F Test: POTASSIUM SERUM; Value: 4.6; Range: 3.5-5.1; Units: MEQ/L; Status: F Test: CHLORIDE LEVEL; Value: 93; Range: 98-107; Abnormal: Below low normal; Units: MEQ/L; Status: F Test: CARBON DIOXIDE LEVEL; Value: 28; Range: 21-32; Units: MEQ/L; Status: F Test: ANION GAP; Value: 11; Range: 8-16; Units: MEQ/L; Status: F Test: CALCIUM LEVEL; Value: 8.4; Range: 8.8-10.2; Abnormal: Below low normal; Units: MG/DL; Status: F Test Note: ; Units are mL/min/1.73 m2 Chronic Kidney Disease Staging per NKF: Stage I & II GFR >=60 Normal to Mildly Decreased Stage III GFR 30-59 Moderately Decreased Stage IV GFR 15-29 Severely Decreased Stage V GFR <15 Very Little GFR Left ESRD GFR <15 on LICENSED PESTICIDE APPLICATOR Lab Order: CBC with Diff; SPEC'M 11/02/16 12:13 Test: WHITE BLOOD COUNT; Value: 6.1; Range: 4.0-10.0; Units: K/mm3; Status: F Test: RED BLOOD COUNT; Value: 4.82; Range: 4.00-5.40; Units: M/mm3; Status: F Test: HEMOGLOBIN; Value: 11.7; Range: 12.0-16.0; Abnormal: Below low normal; Units: g/dl; Status: F Test: HEMATOCRIT; Value: 36.5; Range: 36.0-47.0; Units: %; Status: F Test: MEAN CORPUSCULAR VOLUME; Value: 75.6; Range: 80.0-96.0; Abnormal: Below low normal; Units: fl; Status: F Test: MEAN CORPUSCULAR HEMOGLOBIN; Value: 24.4; Range: 27.0-33.0; Abnormal: Below low normal; Units: pg; Status: F Test: MEAN CORPUSCULAR HGB CONC; Value: 32.2; Range: 32.0-36.5; Units: g/dl; Status: F Test: RED CELL DISTRIBUTION WIDTH; Value: 16.5; Range: 11.5-14.5; Abnormal: Above high normal; Units: %; Status: F Test: PLATELET COUNT, AUTOMATED; Value: 601; Range: 150-450; Abnormal: Above high normal; Units: k/mm3; Status: F Test: NEUTROPHILS %; Value: 80.6; Range: 36.0-66.0; Abnormal: Above high normal; Units: %; Status: F Test: LYMPH %; Value: 12.6; Range: 24.0-44.0; Abnormal: Below low normal; Units: %; Status: F Test: MONO %; Value: 2.9; Range: 0.0-5.0; Units: %; Status: F Test: EOS %; Value: 2.3; Range: 0.0-3.0; Units: %; Status: F Test: BASO %; Value: 0.7; Range: 0.0-1.0; Units: %; Status: F Test: LARGE UNSTAINED CELL %; Value: 1.0; Range: 0.0-4.0; Units: %; Status: F Test: NEUTROPHILS #; Value: 4.9; Range: 1.8-7.7; Units: K/mm3; Status: F Test: LYMPH #; Value: 0.8; Range: 1.5-4.5; Abnormal: Below low normal; Units: K/mm3; Status: F Test: MONO #; Value: 0.2; Range: 0.0-0.8; Units: K/mm3; Status: F Test: EOS #; Value: 0.1; Range: 0.0-0.50; Units: K/mm3; Status: F Test: BASO #; Value: 0.0; Range: 0.0-0.2; Units: K/mm3; Status: F Test: LARGE UNSTAINED CELL #; Value: 0.1; Range: 0.0-0.4; Units: K/mm3; Status: F Lab Order: Lipase; SPEC'M 11/02/16 12:13 Test: LIPASE; Value: 131; Range: 73-393; Units: U/L; Status: F Lab Order: Liver Profile; SPEC'M 11/02/16 12:13 Test: AST/SGOT; Value: 42; Range: 15-37; Abnormal: Above high normal; Units: U/L; Status: F Test: ALT/SGPT; Value: 45; Range: 12-78; Units: U/L; Status: F Test: ALKALINE PHOSPHATASE; Value: 692; Range: 45-117; Abnormal: Above high normal; Units: U/L; Status: F Test: BILIRUBIN,TOTAL; Value: 0.8; Range: 0.2-1.0; Units: MG/DL; Status: F Test: BILIRUBIN,DIRECT; Value: 0.5; Range: 0.0-0.2; Abnormal: Above high normal; Units: MG/DL; Status: F Test: TOTAL PROTEIN; Value: 6.4; Range: 6.4-8.2; Units: GM/DL; Status: F Test: ALBUMIN; Value: 3.0; Range: 3.2-5.2; Abnormal: Below low normal; Units: GM/DL; Status: F Test: ALBUMIN/GLOBULIN RATIO; Value: 0.88; Range: 1.00-1.93; Abnormal: Below low normal; Status: F Lab Order: Troponin; [facility]' 11/02/16 12:13 Test: TROPONIN I; Value: < 0.02; Range: < 0.10; Units: NG/ML; Status: F Test Note: ; Troponin I Reference Interval for Zady LOCI: 99th Percentile= 0.00-0.045 ng/ml Risk Stratification: <= 0.10 ng/ml Decreased Risk for Adverse Clinical Events. 0.10-1.50 ng/ml Increased Risk for Adverse Clinical Events. Evaluation of additional criterion and/or repeat testing in 2-6 hours is suggested to rule out myocardial damage. >= 1.50 ng/ml Indicative of Myocardial Injury. Lab Order: Urinalysis; SPEC'M 11/02/16 12:13 Test: APPEARANCE, URINE; Value: HAZY; Range: CLEAR; Status: F Test: COLOR, URINE; Value: YELLOW; Range: YELLOW; Status: F Test: PH,URINE; Value: 5.0; Range: 5.0-9.0; Units: UNITS; Status: F Test: SPECIFIC GRAVITY URINE AUTO; Value: 1.022; Range: 1.002-1.035; Status: F Test: PROTEIN, URINE AUTO; Value: 1+; Range: NEGATIVE; Abnormal: Above high normal; Units: mg/dL; Status: F Test: GLUCOSE, URINE (UA) AUTO; Value: 3+; Range: NEGATIVE; Abnormal: Above high normal; Units: mg/dL; Status: F Test: KETONE, URINE AUTO; Value: TRACE; Range: NEGATIVE; Abnormal: Above high normal; Units: mg/dL; Status: F Test: UROBILINOGEN, URINE AUTO; Value: 4.0; Range: 0.0-2.0; Abnormal: Above high normal; Units: mg/dL; Status: F Test: BILIRUBIN, URINE AUTO; Value: NEGATIVE; Range: NEGATIVE; Status: F Test: NITRITE, URINE AUTO; Value: NEGATIVE; Range: NEGATIVE; Status: F Test: LEUKOCYTE ESTERASE, URINE AUTO; Value: TRACE; Range: NEGATIVE; Abnormal: Above high normal; Status: F Test: BLOOD, URINE BLOOD; Value: NEGATIVE; Range: NEGATIVE; Status: F Test: WBC, URINE AUTO; Value: 5; Range: 0-3; Abnormal: Above high normal; Units: /HPF; Status: F Test: RBC, URINE AUTO; Value: 2; Range: 0-3; Units: /HPF; Status: F Test: BACTERIA, URINE AUTO; Value: 1+; Range: NEGATIVE; Abnormal: Above high normal; Status: F Test: SQUAMOUS EPITHELIAL CELL UR AU; Value: 3; Range: 0-6; Units: /HPF; Status: F Test: MUCUS, URINE; Value: SMALL; Range: NEGATIVE; Status: F Test: HYALINE CAST, URINE AUTO; Value: 0; Range: 0-1; Units: /LPF; Status: F Lab Order: Lactic Acid (Juarez tube on ice); SPEC'M 11/02/16 12:13 Test: LACTIC ACID LEVEL, LACTATE; Value: 1.5; Range: 0.4-2.0; Units: MMOL/L; Status: F Radiology Order: Chest, 2 View (pa\\E\\lat) Test: Chest, 2 View (pa\\E\\lat) REASON FOR EXAMINATION: Shortness of Breath; Chest x-ray: Two views.; ; History: Shortness of breath.; ; Comparison chest x-ray August 23, 2016.; ; Findings: There is a right internal jugular venous [id number]-Dbco catheter with; its tip in the expected location of the superior vena cava. There is coarse; bilateral basilar and perihilar discoid atelectasis unchanged from the 2015 prior study. No acute infiltrate is seen. Heart is not enlarged. The; lungs are exposed at a low inspiratory level unchanged from the prior exam.; ; Impression:; ; Bilateral basilar and perihilar discoid atelectasis. Ihvqtj-D-Jzse catheter. No; acute changes. Low level of inspiration again noted.; ; ; Signed by; Vasiliy Mckeon MD 11/02/2016 03:34 P; Radiology Order: CT ABD & PELVIS: IV and Oral Contrast Test: CT ABD & PELVIS: IV and Oral Contrast REASON FOR EXAMINATION: Abdomen Pain; CT abdomen and pelvis with IV and oral contrast:; ; History: Abdominal pain. The patient gives a history of primary carcinoma of the; liver.; ; Comparison CT study is from April 2012. Comparison chest CT study is from 2015.; ; CT contrast dose: 100 ml of Isovue 370 is administered intravenously.; ; CT findings: Preliminary digital meeting facilitator radiograph demonstrates an unremarkable; bowel gas pattern. There is plate-like atelectasis in the lower lobes; bilaterally and in the right middle lobe. No pleural effusion is seen.; ; There is an extensive infiltrative, predominately low density mass occupying much; of the right and left lobes of the liver. This is similar in size and extent to; its appearance on August 23, 2016. There is a small sliver of fluid in the; perihepatic region. Spleen is homogeneous in texture. There is an accessory; splenule anteriorly. No pancreatic lesion is seen. No adrenal mass is observed.; There is a calcified gallstone in the gallbladder again noted. No; pericholecystic fluid or gallbladder wall thickening is seen. There is a 1.4 cm; cyst in the right kidney. In addition, there is a 0.9 cm calculus in the right; mid kidney. This area is beyond the scan range from the CT study of August 232015. The right renal cyst appears to be visible on MRI scanning. No renal mass; lesion is observed. Delayed scan images show no filling defect in the collecting; system of either kidney. There are a few uterine calcifications. No uterine or; ovarian mass lesion is seen. A small amount of ascites is seen in the cul-de-sac; reflections of the pelvis. Small and large intestinal bowel loops are normal in; the abdomen and pelvis. Urinary bladder is intact. Bone window settings show no; bony destructive lesion.; ; Impression:; ; 1. Bilateral lower lobe plate-like atelectasis in the lungs.; ; 2. Extensive large infiltrative mass occupying much of the left and right lobe; of the liver unchanged from recent prior studies.; ; 3. Cholelithiasis.; ; 4. Small right renal cyst.; ; 5. 9 mm intrarenal nephrolithiasis right kidney without hydronephrosis.; ; 6. Small quantity of ascitic fluid.; ; ; Signed by; Vasiliy Mckeon MD 11/02/2016 05:42 P; Outcome: 15:44 CT Study completed. [facility] 19:51 Decision to Hospitalize by Provider. br1 22:10 Patient left the ED. [facility] Signatures: Dispatcher [employer] EDMS Selina Farr, Reg Reg gb Marcio Vasquez, GUEST RELATIONS REPRESENTATIVE GUEST RELATIONS REPRESENTATIVE kb5 Ahsan Gomez MD MD br1 Eric Og, GUEST RELATIONS REPRESENTATIVE GUEST RELATIONS REPRESENTATIVE dd6 Kristina Patel RN RN jc4 Vivi Up, GUEST RELATIONS REPRESENTATIVE GUEST RELATIONS REPRESENTATIVE valerie Jacobson, Gayatri, GUEST RELATIONS REPRESENTATIVE GUEST RELATIONS REPRESENTATIVE ct3 Nahun Jonesia dem1 Pretty Almaraz RN RN [facility] Theresa Garcia RN RN [id number] Tamika Lott Chart Complete MTDD
== END 2016-11-03 14:14 | disposition home or self-care (01) ==
LOC: M ED 11:12 → M ED INP 20:25 → M MSPAV 22:14
PROVIDERS: ADMIT Internal Medicine Nephrology; ATTEND Internal Medicine
DX: R11.2 Nausea with vomiting, unspecified (principal); R10.13 Epigastric pain; E11.21 Type 2 diabetes mellitus with diabetic nephropathy; I10 Essential (primary) hypertension; E78.5 Hyperlipidemia, unspecified; J44.9 Chronic obstructive pulmonary disease, unspecified; C22.1 Intrahepatic bile duct carcinoma; Z79.899 Other long term (current) drug therapy; Z79.4 Long term (current) use of insulin; Z88.0 Allergy status to penicillin; Z88.8 Allergy status to other drugs, medicaments and biological substances; Z88.6 Allergy status to analgesic agent; Z91.040 Latex allergy status
CPT/HCPCS: 36415; 71020; 74177; 80048; 80076; 81001; 83605; 83690; 85025; 87040; 87086; 93005; 93041; 96361; 96372; 96374; 96375; 96376; 99285; C9113; J1650; J2405; J2765; Q9963; Q9967

== ENCOUNTER → 2016-11-26 | Outpatient (REF) | payer BC ==
[~2016-11-26] MED LIST changes: +OMEP20CA3 PO; +PAXI10TA2 PO; +PERC10TA17 PO; +SUCR1TA PO
== END | disposition home or self-care (01) ==
LOC: M LAB REF 12:54
PROVIDERS: ATTEND Internal Medicine Medical Oncology
DX: C22.1 Intrahepatic bile duct carcinoma (principal)

== ENCOUNTER 2016-12-04 21:03 | Emergency (ER) | payer BC ==
[2016-12-04] MEDS ORDERED: MORPHINE 4 MG/ML 1ML SYRINGE As Ordered ONE (22:05)
[2016-12-04] MEDS ORDERED: ONDANSETRON 4MG/2ML VIAL (J2405) As Ordered ONE (22:05)
[2016-12-04 22:06] LABS: VENOUS BASE EXCESS 4.2 (-2.0-2.0); VENOUS O2 SATURATION 69.5 % (60.0-80.0); VENOUS PARTIAL PRESSURE CO2 48.9 mmHg (38.0-50.0); VENOUS STANDARD HCO3 27.7 MEQ/L; VENOUS TOTAL CO2 31.2 MEQ/L (24.0-28.0)
[2016-12-04 22:11] LABS: BASO % 0.1 % (0.0-1.0); EOS % 0.4 % (0.0-3.0); LARGE UNSTAINED CELL # 0.2 K/mm3 (0.0-0.4); LARGE UNSTAINED CELL % 2.5 % (0.0-4.0); LYMPH # 0.9 K/mm3 (1.5-4.5); LYMPH % 12.4 % (24.0-44.0); MEAN CORPUSCULAR HEMOGLOBIN 25.5 pg (27.0-33.0); MEAN CORPUSCULAR HGB CONC 33.9 g/dl (32.0-36.5); MEAN CORPUSCULAR VOLUME 75.3 fl (80.0-96.0); MONO # 0.5 K/mm3 (0.0-0.8); MONO % 7.3 % (0.0-5.0); NEUTROPHILS # 5.7 K/mm3 (1.8-7.7); NEUTROPHILS % 77.2 % (36.0-66.0); WHITE BLOOD COUNT 7.4 K/mm3 (4.0-10.0)
[2016-12-04 22:27] LABS: PLATELET COUNT, AUTOMATED 52 k/mm3 (150-450)
[2016-12-04 22:54] LABS: ALBUMIN 3.1 GM/DL (3.2-5.2); ALBUMIN/GLOBULIN RATIO 0.91 (1.00-1.93); ALKALINE PHOSPHATASE 295 U/L (45-117); ALT/SGPT 11 U/L (12-78); ANION GAP 6 MEQ/L (8-16); AST/SGOT 21 U/L (15-37); BILIRUBIN,DIRECT 0.3 MG/DL (0.0-0.2); BILIRUBIN,TOTAL 0.6 MG/DL (0.2-1.0); BLOOD UREA NITROGEN 16 MG/DL (7-18); CALCIUM LEVEL 8.7 MG/DL (8.8-10.2); CARBON DIOXIDE LEVEL 33 MEQ/L (21-32); CHLORIDE LEVEL 98 MEQ/L (98-107); CREATININE FOR GFR 0.68 MG/DL (0.55-1.02); GLOMERULAR FILTRATION RATE > 60.0 (>45); GLUCOSE, FASTING 281 MG/DL (80-110); POTASSIUM SERUM 3.8 MEQ/L (3.5-5.1); SODIUM LEVEL 137 MEQ/L (136-145); TOTAL PROTEIN 6.5 GM/DL (6.4-8.2)
[2016-12-04] MEDS ORDERED: ISOVUE-370 76% 100ML VIAL (Q9967) As Ordered ONE (23:30)
--- NOTE | 2016-12-05 01:40 | REPUSA ---
CLINICAL HISTORY: Abdominal pain. TECHNIQUE: Multiple axial, sagittal and coronal CT images were obtained through the abdomen and pelvi s after administration of intravenous contrast material. COMMENTS: Comparison is made to the prior exam performed on 11/02/2016. Unchanged hepatomegaly with multiple hypodense ill-defined hepatic lesions suggestive of neoplastic p athology/infiltrative liver disease. There is no intra or extrahepatic biliary ductal dilatation. The spleen is normal. The gallbladder co ntains a gallstone. The pancreas is of normal contour and attenuation characteristics. There is no ev idence of adrenal mass. No change in nonobstructing right nephrolithiasis. Both kidneys demonstrate prompt and equal nephrograms. The kidneys are normal in size, shape and conf iguration. There is no evidence of renal or ureteral mass. No ureteral calculi are identified. There is no hydroureter or hydronephrosis. No evidence for appendicitis. There is no bowel wall thickening. No evidence for small or large venkat l obstruction. There is no change in small amount of free fluid. There is no evidence of intrinsic or extrinsic bladder mass. Mild diffuse thickening of the bladder. Images of the lung bases show no evidence of pleural or parenchymal mass. There are no pleural effusi ons. The bony structures are free of lytic or blastic lesions. Multilevel degenerative changes are seen in volving the thoracolumbar spine. Scattered calcifications are seen involving the aorta and major bran ches compatible with atherosclerosis. IMPRESSION: No change is noted since the prior exam. Diffuse infiltrative liver disease. Small amount of free fluid. Nonobstructing right nephrolithiasis. Cholelithiasis. Constipation. Mild diffuse thickening of the bladder. Thank you for your kind referral of this patient.
[2016-12-05] MEDS ORDERED: ONDANSETRON 4MG/2ML VIAL (J2405) As Ordered ONE (02:01)
[2016-12-05] MEDS ORDERED: PERCOCET 5MG/325MG TAB As Ordered ONE (02:08)
[2016-12-05] MEDS ORDERED: MAGNESIUM CITRATE 300 ML BTL As Ordered ONE (02:08)
--- NOTE | 2016-12-05 02:18 | EDDOCDS ---
Nurse's Notes [facility] Name: Stephanie Arzate Age: 61 yrs Sex: Female : 1955 Arrival Date: 12/04/2016 Time: 21:03 Bed 7 Private MD: Diagnosis: Constipation Presentation: 12/04 21:08 Presenting complaint: Patient states: Patient called EMS because she has been vomiting jmb all day. Blood glucose was 310 by EMS. Patient has history of liver cancer. Adult Sepsis Screening: The patient does not have new or worsening altered mentation. Patient's respiratory rate is less than 22. Systolic blood pressure is greater than 100. Patient has a qSOFA score of 0- Negative Sepsis Screen. Suicide/Homicide risk assessment- the patient denies having any suicidal and/or homicidal ideations and does not present with any other emotional, behavioral or mental health complaints. Status: Patient is not a residential service technician or dependent. Transition of care: patient was not received from another setting of care. 21:08 Acuity: MAURICIO Level 3 b 21:08 Method Of Arrival: Ambulance [facility] Triage Assessment: 21:10 General: Appears in no apparent distress. Pain: Location: back and abdomen Pain jmb currently is 10 out of 10 on a pain scale. HIV screening NA for this visit Offered previously. Neurological: Level of Consciousness is awake, alert, obeys commands, Oriented to person, place, time, Speech is normal, Facial symmetry appears normal, Facial symmetry: tongue is midline. Respiratory: Airway is patent Respiratory effort is even, unlabored, Respiratory pattern is regular, symmetrical. GI: Abdomen is non- distended Reports lower abdominal pain, vomiting. Derm: Skin is pale. Musculoskeletal: Range of motion intact in all extremities. Historical: - Allergies: Aspirin (Rash); Emend (Wheezing); Latex (Hives); PENICILLINS (Rash); - Home Meds: 1. Crestor 40 mg Oral tab 1 tab once daily 2. Humalog 100 unit/mL Sub-Q soln 35 unit three times a day 3. Humalog 100 unit/mL Sub-Q soln sliding scale three times daily 4. Jardiance 25 mg oral tab 1 tab once daily 5. omeprazole 20 mg Oral cpDR 1 cap once daily 6. oxycodone-acetaminophen 5-325 mg Oral tab 1 tab every 4 hours 7. Paxil 10 mg Oral tab 1 tab once daily - PMHx: Cancer, Liver; COPD; Diabetes - IDDM: controlled; Diabetic Neuropathy; Hypercholesterolemia; Hypertension; - PSHx: Carpal Tunnel Repair- Right; Infusaport Placement; - Social history: Smoking status: Patient states was never smoker of tobacco. No barriers to communication noted, The patient speaks fluent Peruvian, Speaks appropriately for age. - Family history: Not pertinent. - : The pt / caregiver states he / she is not on anticoagulants. Home medication list is obtained from. - Exposure Risk Screening:: None identified. Screenin:02 Screening information is obtained from the patient. Fall risk: At risk due to gait jmb disturbance. Assistance ADL's: requires no assistance with activities of daily living. Abuse/DV Screen: The patient / caregiver reports he/she is: not in a situation that causes fear, pain or injury. Nutritional screening: No deficits noted. home support is adequate. 12/05 02:11 Advance Directives: Currently, there is no health care proxy. There is no active DNR jmb order. There is no living will. There is no Power of Lunch Truck Driver. Assessment: 12/04 22:02 General: Appears in no apparent distress, comfortable, Behavior is appropriate for age, jmb cooperative. Pain: Location: abdomen and back Pain currently is 10 out of 10 on a pain scale. Neurological: Level of Consciousness is awake, alert, obeys commands, Oriented to person, place, time, Air Lift Operator are equal bilaterally Speech is normal, Facial symmetry appears normal, Facial symmetry: tongue is midline. Cardiovascular: Capillary refill < 3 seconds Heart tones present Pulses are all present. Rhythm is regular. Respiratory: Airway is patent Respiratory effort is even, unlabored, Respiratory pattern is regular, symmetrical, Breath sounds are clear bilaterally. GI: Abdomen is non- distended Bowel sounds present X 4 quads. Abd is soft X 4 quads. Derm: Skin is pale. Musculoskeletal: Range of motion intact in all extremities. 22:39 General: Appears in no apparent distress, comfortable, Behavior is appropriate for age, jmb cooperative. Neurological: Level of Consciousness is awake, alert, obeys commands, Oriented to person, place, time. Respiratory: Airway is patent Respiratory effort is even, unlabored, Respiratory pattern is regular, symmetrical. 23:30 General: Appears in no apparent distress, comfortable, Behavior is appropriate for age, jmb cooperative, Patient laying on stretcher, appears comfortable. Sister at bedside. NO voiced complaints at this time. . Neurological: Level of Consciousness is awake, alert, obeys commands, Oriented to person, place, time. Respiratory: Airway is patent Respiratory effort is even, unlabored, Respiratory pattern is regular, symmetrical. 12/05 00:01 General: Appears in no apparent distress, comfortable, Behavior is appropriate for age, jmb cooperative, Patient reports that nausea has subsided and she feels much better than upon arrival. No voiced complaints at this time. . Neurological: Level of Consciousness is awake, alert, obeys commands, Oriented to person, place, time. Respiratory: Airway is patent Respiratory effort is even, unlabored, Respiratory pattern is regular, symmetrical. 00:39 General: Appears in no apparent distress, comfortable, Behavior is appropriate for age, jmb cooperative. Neurological: Level of Consciousness is awake, alert, obeys commands, Oriented to person, place, time. Respiratory: Airway is patent Respiratory effort is even, unlabored, Respiratory pattern is regular, symmetrical. 01:45 General: Appears in no apparent distress, comfortable, Behavior is appropriate for age, jmb cooperative. General: Patient sitting on stretcher, appears comfortable. Voices no complaints at this time. . Neurological: Level of Consciousness is awake, alert, Oriented to person, place, time. Respiratory: Airway is patent Respiratory effort is even, unlabored, Respiratory pattern is regular, symmetrical. 02:11 General: Patient instructed on discharge instructions. Patient asked if there were any [facility] questions regarding discharge, patient stated no. Implantable device deaccessed and IV discontinued per hospital policy. Patient signed discharge instructions. Patient discharged in stable condition. . Vital Signs: 12/04 21:10 BP 162 / 73; Pulse 97; Resp 20; Temp 98.0(O); Pulse Ox 92% ; Weight 69.85 kg (R); [facility] Height 5 ft. 3 in. (160.02 cm) (R); Pain 10/10; 12/05 02:11 BP 148 / 70; Pulse 77; Resp 18; Temp 98.5(O); Pulse Ox 94% on R/A; Pain 0/10; b 12/04 21:10 Body Mass Index 27.28 (69.85 kg, 160.02 cm) [facility] Vitals: 12/04 21:10 Log In Time N/A - ambulance arrival. [facility] ED Course: 21:07 Patient visited by Kimberly Quezada, Manager Of Engineering. ml3 21:07 Patient moved to Waiting ml3 21:07 Patient moved to 7 ml3 21:09 Triage Initiated jmb 21:20 [facility] le 21:28 Patient visited by Marianna Correia FNP. le 21:29 Patient visited by Marainna Correia FNP. le 22:01 Ammonia (Little Green Tube on Ice, Not Pea Green) Sent. jmb 22:01 Lactic Acid (Juarez tube on ice) Sent. jmb 22:01 Venous Blood Gas (large pea green tube on ice) Sent. jmb 22:01 Basic Metabolic Profile Sent. jmb 22:01 CBC with Diff Sent. jmb 22:01 Cardiac Injury Profile Sent. jmb 22:01 Lipase Sent. jmb 22:01 Liver Profile Sent. jmb 22:02 The patient / caregiver is instructed regarding the plan of care and ED course. jmb 22:02 Troponin Sent. jmb 22:02 Accessed using accessed w/ # 20 Nicholson needle, sterile technique, per hospital protocol. swathib Port-a-Cath in patient's anterior aspect of right upper chest. Clean & dry. Dressing intact. Dressing loose. Good blood return. Flushes easily. Labs drawn. (by ED staff). Sent per order to lab. 22:04 Patient visited by Wilner Patel RN. jmlisa 22:40 Patient visited by Wilner Patel RN. jmb 23:18 [facility] Payment Agreement was scanned into [employer] and attached to record. zo 23:31 Patient visited by Wilner Patel RN. jmb 23:49 Inserted saline lock: 20 gauge in left antecubital area. oct 23:56 Paco Vega DO is Attending Physician. mm11 12/05 00:02 Patient visited by Wilner Patel,CRISTIN. swathib 00:39 Urinalysis Sent. jmb 00:40 Patient visited by Wilner Patel,CRISTIN. jmb 01:46 Patient visited by Wilner Patel,CRISTIN. jmb 02:11 Discontinued lock intact, bleeding controlled, pressure dressing applied, No jmb redness/swelling at site. No procedures done that require assistance. Administered Medications: 12/04 22:11 Drug: NS 0.9% 1000 ml [sodium chloride 0.9 % intravenous solution] Route: IV; Rate: jmb bolus; Site: Implantable Access Device; 22:11 Drug: Ondansetron 4 mg [ondansetron HCl 2 mg/mL intravenous solution (2 mL)] Route: jmb IVP; Site: Implantable Access Device; 22:11 Drug: morphine 4 mg [morphine 4 mg/mL intravenous cartridge (1 mL)] Route: IVP; Site: [facility] Implantable Access Device; 23:58 Drug: NS 0.9% 1000 ml [sodium chloride 0.9 % intravenous solution] Route: IV; Rate: 100 jmb mL/hr; Site: left antecubital; 12/05 02:06 Drug: Ondansetron 4 mg [ondansetron HCl 2 mg/mL intravenous solution (2 mL)] Route: jmb IVP; Site: left antecubital; 02:11 Drug: oxyCODONE-acetaminophen 1 tabs [oxycodone-acetaminophen 5 mg-325 mg tablet (1 jmb tabs)] Route: PO; 02:11 Drug: Magnesium Citrate 300 ml [magnesium citrate oral solution (300 mL)] Route: PO; [facility] Order Results: Lab Order: Basic Metabolic Profile; SPEC'M 12/04/16 21:53 Test: GLUCOSE, FASTING; Value: 281; Range: 80-110; Abnormal: Above high normal; Units: MG/DL; Status: F Test: BLOOD UREA NITROGEN; Value: 16; Range: 7-18; Units: MG/DL; Status: F Test: CREATININE FOR GFR; Value: 0.68; Range: 0.55-1.02; Units: MG/DL; Status: F Test: GLOMERULAR FILTRATION RATE; Value: > 60.0; Range: >45; Status: F Test: SODIUM LEVEL; Value: 137; Range: 136-145; Units: MEQ/L; Status: F Test: POTASSIUM SERUM; Value: 3.8; Range: 3.5-5.1; Units: MEQ/L; Status: F Test: CHLORIDE LEVEL; Value: 98; Range: 98-107; Units: MEQ/L; Status: F Test: CARBON DIOXIDE LEVEL; Value: 33; Range: 21-32; Abnormal: Above high normal; Units: MEQ/L; Status: F Test: ANION GAP; Value: 6; Range: 8-16; Abnormal: Below low normal; Units: MEQ/L; Status: F Test: CALCIUM LEVEL; Value: 8.7; Range: 8.8-10.2; Abnormal: Below low normal; Units: MG/DL; Status: F Test Note: ; Units are mL/min/1.73 m2 Chronic Kidney Disease Staging per NKF: Stage I & II GFR >=60 Normal to Mildly Decreased Stage III GFR 30-59 Moderately Decreased Stage IV GFR 15-29 Severely Decreased Stage V GFR <15 Very Little GFR Left ESRD GFR <15 on TALENT MANAGEMENT SPECIALIST Lab Order: CBC with Diff; SPEC'M 12/04/16 21:53 Test: WHITE BLOOD COUNT; Value: 7.4; Range: 4.0-10.0; Units: K/mm3; Status: F Test: RED BLOOD COUNT; Value: 3.90; Range: 4.00-5.40; Abnormal: Below low normal; Units: M/mm3; Status: F Test: HEMOGLOBIN; Value: 9.9; Range: 12.0-16.0; Abnormal: Below low normal; Units: g/dl; Status: F Test: HEMATOCRIT; Value: 29.3; Range: 36.0-47.0; Abnormal: Below low normal; Units: %; Status: F Test: MEAN CORPUSCULAR VOLUME; Value: 75.3; Range: 80.0-96.0; Abnormal: Below low normal; Units: fl; Status: F Test: MEAN CORPUSCULAR HEMOGLOBIN; Value: 25.5; Range: 27.0-33.0; Abnormal: Below low normal; Units: pg; Status: F Test: MEAN CORPUSCULAR HGB CONC; Value: 33.9; Range: 32.0-36.5; Units: g/dl; Status: F Test: RED CELL DISTRIBUTION WIDTH; Value: 18.0; Range: 11.5-14.5; Abnormal: Above high normal; Units: %; Status: F Test: PLATELET COUNT, AUTOMATED; Value: 52; Range: 150-450; Abnormal: Below low normal; Units: k/mm3; Status: F Test: NEUTROPHILS %; Value: 77.2; Range: 36.0-66.0; Abnormal: Above high normal; Units: %; Status: F Test: LYMPH %; Value: 12.4; Range: 24.0-44.0; Abnormal: Below low normal; Units: %; Status: F Test: MONO %; Value: 7.3; Range: 0.0-5.0; Abnormal: Above high normal; Units: %; Status: F Test: EOS %; Value: 0.4; Range: 0.0-3.0; Units: %; Status: F Test: BASO %; Value: 0.1; Range: 0.0-1.0; Units: %; Status: F Test: LARGE UNSTAINED CELL %; Value: 2.5; Range: 0.0-4.0; Units: %; Status: F Test: NEUTROPHILS #; Value: 5.7; Range: 1.8-7.7; Units: K/mm3; Status: F Test: LYMPH #; Value: 0.9; Range: 1.5-4.5; Abnormal: Below low normal; Units: K/mm3; Status: F Test: MONO #; Value: 0.5; Range: 0.0-0.8; Units: K/mm3; Status: F Test: EOS #; Value: 0.0; Range: 0.0-0.50; Units: K/mm3; Status: F Test: BASO #; Value: 0.0; Range: 0.0-0.2; Units: K/mm3; Status: F Test: LARGE UNSTAINED CELL #; Value: 0.2; Range: 0.0-0.4; Units: K/mm3; Status: F Lab Order: Cardiac Injury Profile; SPEC'M 12/04/16 21:53 Test: CPK CREATINE PHOSPHOKINASE; Value: 30; Range: 26-192; Units: U/L; Status: F Test: CK-MB VALUE MASS; Value: 1.0; Range: 0.0-3.6; Units: NG/ML; Status: F Test: MB/CK RELATIVE INDEX; Value: 3.33; Range: < OR =4; Status: F Test Note: ; DIAGNOSIS CRITERIA MMB ng/ml Relative Index (RI) NON-AMI < or = 5 N/A JUAREZ ZONE > 5 < or = 4 AMI > 5 > 4 Lab Order: Lipase; [facility] 12/04/16 21:53 Test: LIPASE; Value: 271; Range: 73-393; Units: U/L; Status: F Lab Order: Liver Profile; [facility] 12/04/16 21:53 Test: AST/SGOT; Value: 21; Range: 15-37; Units: U/L; Status: F Test: ALT/SGPT; Value: 11; Range: 12-78; Abnormal: Below low normal; Units: U/L; Status: F Test: ALKALINE PHOSPHATASE; Value: 295; Range: 45-117; Abnormal: Above high normal; Units: U/L; Status: F Test: BILIRUBIN,TOTAL; Value: 0.6; Range: 0.2-1.0; Units: MG/DL; Status: F Test: BILIRUBIN,DIRECT; Value: 0.3; Range: 0.0-0.2; Abnormal: Above high normal; Units: MG/DL; Status: F Test: TOTAL PROTEIN; Value: 6.5; Range: 6.4-8.2; Units: GM/DL; Status: F Test: ALBUMIN; Value: 3.1; Range: 3.2-5.2; Abnormal: Below low normal; Units: GM/DL; Status: F Test: ALBUMIN/GLOBULIN RATIO; Value: 0.91; Range: 1.00-1.93; Abnormal: Below low normal; Status: F Lab Order: Troponin; [facility] 12/04/16 21:53 Test: TROPONIN I; Value: < 0.02; Range: < 0.10; Units: NG/ML; Status: F Test Note: ; Troponin I Reference Interval for Unified LOCI: 99th Percentile= 0.00-0.045 ng/ml Risk Stratification: <= 0.10 ng/ml Decreased Risk for Adverse Clinical Events. 0.10-1.50 ng/ml Increased Risk for Adverse Clinical Events. Evaluation of additional criterion and/or repeat testing in 2-6 hours is suggested to rule out myocardial damage. >= 1.50 ng/ml Indicative of Myocardial Injury. Lab Order: Urinalysis; [facility] 12/05/16 00:38 Test: APPEARANCE, URINE; Value: CLEAR; Range: CLEAR; Status: F Test: COLOR, URINE; Value: YELLOW; Range: YELLOW; Status: F Test: PH,URINE; Value: 5.0; Range: 5.0-9.0; Units: UNITS; Status: F Test: SPECIFIC GRAVITY URINE AUTO; Value: 1.026; Range: 1.002-1.035; Status: F Test: PROTEIN, URINE AUTO; Value: NEGATIVE; Range: NEGATIVE; Units: mg/dL; Status: F Test: GLUCOSE, URINE (UA) AUTO; Value: 3+; Range: NEGATIVE; Abnormal: Above high normal; Units: mg/dL; Status: F Test: KETONE, URINE AUTO; Value: TRACE; Range: NEGATIVE; Abnormal: Above high normal; Units: mg/dL; Status: F Test: UROBILINOGEN, URINE AUTO; Value: 4.0; Range: 0.0-2.0; Abnormal: Above high normal; Units: mg/dL; Status: F Test: BILIRUBIN, URINE AUTO; Value: NEGATIVE; Range: NEGATIVE; Status: F Test: NITRITE, URINE AUTO; Value: NEGATIVE; Range: NEGATIVE; Status: F Test: LEUKOCYTE ESTERASE, URINE AUTO; Value: TRACE; Range: NEGATIVE; Abnormal: Above high normal; Status: F Test: BLOOD, URINE BLOOD; Value: NEGATIVE; Range: NEGATIVE; Status: F Test: WBC, URINE AUTO; Value: 3; Range: 0-3; Units: /HPF; Status: F Test: RBC, URINE AUTO; Value: 2; Range: 0-3; Units: /HPF; Status: F Test: BACTERIA, URINE AUTO; Value: NEGATIVE; Range: NEGATIVE; Status: F Test: SQUAMOUS EPITHELIAL CELL UR AU; Value: 0; Range: 0-6; Units: /HPF; Status: F Test: MUCUS, URINE; Value: SMALL; Range: NEGATIVE; Status: F Test: HYALINE CAST, URINE AUTO; Value: 0; Range: 0-1; Units: /LPF; Status: F Lab Order: Venous Blood Gas (large pea green tube on ice); SPEC'M 12/04/16 21:53 Test: VENOUS PH; Value: 7.401; Range: 7.330-7.430; Units: UNITS; Status: F Test: VENOUS PARTIAL PRESSURE CO2; Value: 48.9; Range: 38.0-50.0; Units: mmHg; Status: F Test: VENOUS PARTIAL PRESSURE O2; Value: 38.0; Range: 30.0-50.0; Units: mmHg; Status: F Test: VENOUS TOTAL CO2; Value: 31.2; Range: 24.0-28.0; Abnormal: Above high normal; Units: MEQ/L; Status: F Test: VENOUS HCO3; Value: 29.7; Range: 23.0-27.0; Abnormal: Above high normal; Units: MEQ/L; Status: F Test: VENOUS BASE EXCESS; Value: 4.2; Range: -2.0-2.0; Abnormal: Above high normal; Status: F Test: VENOUS STANDARD HCO3; Value: 27.7; Units: MEQ/L; Status: F Test: VENOUS O2 SATURATION; Value: 69.5; Range: 60.0-80.0; Units: %; Status: F Lab Order: Lactic Acid (Juarez tube on ice); SPEC'M 12/04/16 21:54 Test: LACTIC ACID SEPSIS PROTOCOL; Value: 1.4; Range: 0.4-2.0; Units: MMOL/L; Status: F Lab Order: Ammonia (Little Green Tube on Ice, Not Pea Green); SPEC'M 12/04/16 21:53 Test: AMMONIA; Value: 38; Range: <32; Abnormal: Above high normal; Units: uMOL/L; Status: F Outcome: 02:02 Discharge ordered by Provider. mm11 02:11 Discharge Assessment: Patient awake, alert and oriented x 3. No cognitive and/or jmb functional deficits noted. Patient verbalized understanding of disposition instructions. Patient awake and alert. obeys commands, Oriented to person, place and time. Patient verbalized understanding of disposition instructions. Patient has no functional deficits. patient administered narcotics - yes. Pt provided with safe discharge. The following High Risk Discharge criteria are identified: None. Discharged to home ambulatory, with family. Condition: stable Condition: improved. Discharge instructions given to patient, Instructed on discharge instructions, follow up and referral plans. medication usage, Demonstrated understanding of instructions, medications, Pt was receptive of discharge instructions/ teaching. CT Study completed. Property sent home with patient. 02:17 Patient left the ED. jmb Signatures: Sarah Miller RN CRISTIN Quezada, [facility], Manager Of Engineering Unit ml3 Angelique Luo Matthew, DO DO mm11 Marianna Correia, TASSEL MAKING MACHINE OPERATOR TASSEL MAKING MACHINE OPERATOR Wilner Jones,RN RN jmb MTDD
--- NOTE | 2016-12-05 02:18 | EDDOCDS ---
Physician Documentation [facility] Name: Stephanie Arzate Age: 61 yrs Sex: Female : 1955 Arrival Date: 12/04/2016 Time: 21:03 Bed 7 Private MD: Disposition: 12/05/16 02:02 Discharged to Home/Self Care. Impression: Constipation. - Condition is Stable. - Discharge Instructions: Constipation, Adult, Constipation, Adult, [id number]. - Prescriptions for Miralax 17 gram/dose - take 17 gram by ORAL route once daily As needed dilute in 8 ounces of water or juice; 1 bottle. - Medication Reconciliation, Local Pharmacy Hours form. - Follow up: Private Physician; When: 2 - 3 days; Reason: Continuance of care. - Problem is an acute exacerbation. - Symptoms have improved. Historical: - Allergies: Aspirin (Rash); Emend (Wheezing); Latex (Hives); PENICILLINS (Rash); - Home Meds: 1. Crestor 40 mg Oral tab 1 tab once daily 2. Humalog 100 unit/mL Sub-Q soln 35 unit three times a day 3. Humalog 100 unit/mL Sub-Q soln sliding scale three times daily 4. Jardiance 25 mg oral tab 1 tab once daily 5. omeprazole 20 mg Oral cpDR 1 cap once daily 6. oxycodone-acetaminophen 5-325 mg Oral tab 1 tab every 4 hours 7. Paxil 10 mg Oral tab 1 tab once daily - PMHx: Cancer, Liver; COPD; Diabetes - IDDM: controlled; Diabetic Neuropathy; Hypercholesterolemia; Hypertension; - PSHx: Carpal Tunnel Repair- Right; Infusaport Placement; - Social history: Smoking status: Patient states was never smoker of tobacco. No barriers to communication noted, The patient speaks fluent [place], Speaks appropriately for age. - Family history: Not pertinent. - : The pt / caregiver states he / she is not on anticoagulants. Home medication list is obtained from. - Exposure Risk Screening:: None identified. Vital Signs: 12/04 21:10 BP 162 / 73; Pulse 97; Resp 20; Temp 98.0(O); Pulse Ox 92% ; Weight 69.85 kg / 153.99 jmb lbs (R); Height 5 ft. 3 in. (160.02 cm) (R); Pain 10/10; 12/05 02:11 BP 148 / 70; Pulse 77; Resp 18; Temp 98.5(O); Pulse Ox 94% on R/A; Pain 0/10; b 12/04 21:10 Body Mass Index 27.28 (69.85 kg, 160.02 cm) [facility] MDM: 12/04 21:21 NS 0.9% 1000 ml IV at bolus once ordered. le 21:21 NS 0.9% 1000 ml IV at 100 mL/hr continuous ordered. le 21:21 Ondansetron 4 mg IVP once ordered. le 21:21 morphine 4 mg IVP every 30 minutes; Document pain score/vitals after each dose (Hold if le SBP < 90mmHg) x2 ordered. 21:21 IV Saline Lock ordered. le 21:21 Undress patient appropriately for examination ordered. le 21:22 Abdomen, Flat\E\Upright,PA Chest Ordered. EDMS 21:23 Basic Metabolic Profile Ordered. EDMS 21:23 CBC with Diff Ordered. EDMS 21:23 Cardiac Injury Profile Ordered. EDMS 21:23 Lipase Ordered. EDMS 21:23 Liver Profile Ordered. EDMS 21:23 Troponin Ordered. EDMS 21:23 Urinalysis Ordered. EDMS 21:23 NOTHING BY MOUTH+DIET ordered. EDMS 21:24 Venous Blood Gas (large pea green tube on ice) Ordered. EDMS 21:26 Misc. Nursing Order ordered. le 21:29 Lactic Acid (Juarez tube on ice) Ordered. EDMS 21:29 Ammonia (Little Green Tube on Ice, Not Pea Green) Ordered. EDMS 22:10 Venous Blood Gas (large pea green tube on ice) Reviewed. le 23:02 Basic Metabolic Profile Reviewed. le 23:02 CBC with Diff Reviewed. le 23:02 Liver Profile Reviewed. le 23:02 Ammonia (Little Green Tube on Ice, Not Pea Green) Reviewed. le 23:02 Cardiac Injury Profile Reviewed. le 23:02 Lipase Reviewed. le 23:02 Troponin Reviewed. le 23:02 Lactic Acid (Juarez tube on ice) Reviewed. le 23:18 Financial registration complete. zo 23:18 [facility] Payment Agreement was scanned into [employer] and attached to record. zo 23:25 CT ABD & PELVIS: IV Contrast Only Ordered. EDMS 12/05 01:19 Urinalysis Reviewed. mm11 02:02 Ondansetron 4 mg IVP once ordered. mm11 02:02 oxyCODONE-acetaminophen 5 mg-325 mg 1 tabs PO once ordered. mm11 02:02 Magnesium Citrate Liquid 300 ml PO once; Dispense home with pt. ordered. mm11 Administered Medications: 12/04 22:11 Drug: NS 0.9% 1000 ml [sodium chloride 0.9 % intravenous solution] Route: IV; Rate: jmb bolus; Site: Implantable Access Device; 22:11 Drug: Ondansetron 4 mg [ondansetron HCl 2 mg/mL intravenous solution (2 mL)] Route: jmb IVP; Site: Implantable Access Device; 22:11 Drug: morphine 4 mg [morphine 4 mg/mL intravenous cartridge (1 mL)] Route: IVP; Site: [facility] Implantable Access Device; 23:58 Drug: NS 0.9% 1000 ml [sodium chloride 0.9 % intravenous solution] Route: IV; Rate: 100 jmb mL/hr; Site: left antecubital; 12/05 02:06 Drug: Ondansetron 4 mg [ondansetron HCl 2 mg/mL intravenous solution (2 mL)] Route: jmb IVP; Site: left antecubital; 02:11 Drug: oxyCODONE-acetaminophen 1 tabs [oxycodone-acetaminophen 5 mg-325 mg tablet (1 jmb tabs)] Route: PO; 02:11 Drug: Magnesium Citrate 300 ml [magnesium citrate oral solution (300 mL)] Route: PO; jmb Signatures: Dispatcher [employer] EDAngelique Wise Matthew, DO DO mm11 Marianna Correia, CONTINUOUS PILLOWCASE CUTTER Wilner Sorto,CRISTIN RN swathib The chart was reviewed and I authenticate all verbal orders and agree with the evaluation and treatment provided.Attachments: 12/04 23:18 [facility] Payment Agreement zo MTDD
--- NOTE | 2016-12-05 08:20 | REP ---
Clinical: Abdominal pain. Technique: Upright view of the chest with supine and upright views of the abdomen and pelvis. Findings: Frontal view of the chest demonstrates chronic fibroatelectatic changes. No free air below the diaphragm to suspect pneumoperitoneum. Supine and upright views of the abdomen and pelvis demonstrate nonspecific bowel gas pattern. No obstruction. No obvious perforation. No organomegaly. Skeletal structures stable. Impression: Chronic stable changes. Nonspecific bowel gas pattern. Signed by Junior Taylor MD 12/05/2016 08:12 A
--- NOTE | 2016-12-07 03:18 | EDDOCDS ---
Physician Documentation [facility] Name: Stephanie Arzate Age: 61 yrs Sex: Female : 1955 Arrival Date: 12/04/2016 Time: 21:03 Bed 7 Private MD: Disposition: 12/05/16 02:02 Discharged to Home/Self Care. Impression: Constipation. - Condition is Stable. - Discharge Instructions: Constipation, Adult, Constipation, Adult, [id number]. - Prescriptions for Miralax 17 gram/dose - take 17 gram by ORAL route once daily As needed dilute in 8 ounces of water or juice; 1 bottle. - Medication Reconciliation, Local Pharmacy Hours form. - Follow up: Private Physician; When: 2 - 3 days; Reason: Continuance of care. - Problem is an acute exacerbation. - Symptoms have improved. Historical: - Allergies: Aspirin (Rash); Emend (Wheezing); Latex (Hives); PENICILLINS (Rash); - Home Meds: 1. Crestor 40 mg Oral tab 1 tab once daily 2. Humalog 100 unit/mL Sub-Q soln 35 unit three times a day 3. Humalog 100 unit/mL Sub-Q soln sliding scale three times daily 4. Jardiance 25 mg oral tab 1 tab once daily 5. omeprazole 20 mg Oral cpDR 1 cap once daily 6. oxycodone-acetaminophen 5-325 mg Oral tab 1 tab every 4 hours 7. Paxil 10 mg Oral tab 1 tab once daily - PMHx: Cancer, Liver; COPD; Diabetes - IDDM: controlled; Diabetic Neuropathy; Hypercholesterolemia; Hypertension; - PSHx: Carpal Tunnel Repair- Right; Infusaport Placement; - Social history: Smoking status: Patient states was never smoker of tobacco. No barriers to communication noted, The patient speaks fluent [place], Speaks appropriately for age. - Family history: Not pertinent. - : The pt / caregiver states he / she is not on anticoagulants. Home medication list is obtained from. - Exposure Risk Screening:: None identified. Vital Signs: 12/04 21:10 BP 162 / 73; Pulse 97; Resp 20; Temp 98.0(O); Pulse Ox 92% ; Weight 69.85 kg / 153.99 jmb lbs (R); Height 5 ft. 3 in. (160.02 cm) (R); Pain 10/10; 12/05 02:11 BP 148 / 70; Pulse 77; Resp 18; Temp 98.5(O); Pulse Ox 94% on R/A; Pain 0/10; b 12/04 21:10 Body Mass Index 27.28 (69.85 kg, 160.02 cm) [facility] MDM: 12/04 21:21 NS 0.9% 1000 ml IV at bolus once ordered. le 21:21 NS 0.9% 1000 ml IV at 100 mL/hr continuous ordered. le 21:21 Ondansetron 4 mg IVP once ordered. le 21:21 morphine 4 mg IVP every 30 minutes; Document pain score/vitals after each dose (Hold if le SBP < 90mmHg) x2 ordered. 21:21 IV Saline Lock ordered. le 21:21 Undress patient appropriately for examination ordered. le 21:22 Abdomen, Flat\E\Upright,PA Chest Ordered. EDMS 21:23 Basic Metabolic Profile Ordered. EDMS 21:23 CBC with Diff Ordered. EDMS 21:23 Cardiac Injury Profile Ordered. EDMS 21:23 Lipase Ordered. EDMS 21:23 Liver Profile Ordered. EDMS 21:23 Troponin Ordered. EDMS 21:23 Urinalysis Ordered. EDMS 21:23 NOTHING BY MOUTH+DIET ordered. EDMS 21:24 Venous Blood Gas (large pea green tube on ice) Ordered. EDMS 21:26 Misc. Nursing Order ordered. le 21:29 Lactic Acid ([place] tube on ice) Ordered. EDMS 21:29 Ammonia ([place] Green Tube on Ice, Not Pea Green) Ordered. EDMS 22:10 Venous Blood Gas (large pea green tube on ice) Reviewed. le 23:02 Basic Metabolic Profile Reviewed. le 23:02 CBC with Diff Reviewed. le 23:02 Liver Profile Reviewed. le 23:02 Ammonia ([place] Tube on Ice, Not Pea Green) Reviewed. le 23:02 Cardiac Injury Profile Reviewed. le 23:02 Lipase Reviewed. le 23:02 Troponin Reviewed. le 23:02 Lactic Acid ([place] tube on ice) Reviewed. le 23:18 Financial registration complete. zo 23:18 [facility] [place] Agreement was scanned into [employer] and attached to record. zo 23:25 CT ABD & PELVIS: IV Contrast Only Ordered. EDMS 12/05 01:19 Urinalysis Reviewed. mm11 02:02 Ondansetron 4 mg IVP once ordered. mm11 02:02 oxyCODONE-acetaminophen 5 mg-325 mg 1 tabs PO once ordered. mm11 02:02 Magnesium Citrate Liquid 300 ml PO once; Dispense home with pt. ordered. mm11 :18 T-Sheet-- Draft Copy was scanned into [employer] and attached to record. gb Administered Medications: 12/04 22:11 Drug: NS 0.9% 1000 ml [sodium chloride 0.9 % intravenous solution] Route: IV; Rate: jmb bolus; Site: Implantable Access Device; 22:11 Drug: Ondansetron 4 mg [ondansetron HCl 2 mg/mL intravenous solution (2 mL)] Route: jmb IVP; Site: Implantable Access Device; 22:11 Drug: morphine 4 mg [morphine 4 mg/mL intravenous cartridge (1 mL)] Route: IVP; Site: [facility] Implantable Access Device; 23:58 Drug: NS 0.9% 1000 ml [sodium chloride 0.9 % intravenous solution] Route: IV; Rate: 100 jmb mL/hr; Site: left antecubital; 12/05 02:06 Drug: Ondansetron 4 mg [ondansetron HCl 2 mg/mL intravenous solution (2 mL)] Route: jmb IVP; Site: left antecubital; 02:11 Drug: oxyCODONE-acetaminophen 1 tabs [oxycodone-acetaminophen 5 mg-325 mg tablet (1 jmb tabs)] Route: PO; 02:11 Drug: Magnesium Citrate 300 ml [magnesium citrate oral solution (300 mL)] Route: PO; jmb Signatures: [facility] EDSelina Perkins, Reg Reg gb Angelique Luo Matthew, DO DO mm11 Marianna Correia, CLINICAL RESEARCH MANAGEMENT ASSOCIATE CLINICAL RESEARCH MANAGEMENT ASSOCIATE Wilner Jones RN RN aarti The chart was reviewed and I authenticate all verbal orders and agree with the evaluation and treatment provided.Attachments: 12/04 23:18 [facility] Payment Agreement zo 12/05 08:18 T-Sheet-- Draft Copy gb Chart Complete MTDD
--- NOTE | 2016-12-07 03:18 | EDDOCDS ---
Nurse's Notes [facility] Name: Stephanie Arzate Age: 61 yrs Sex: Female : 1955 Arrival Date: 12/04/2016 Time: 21:03 Bed 7 Private MD: Diagnosis: Constipation Presentation: 12/04 21:08 Presenting complaint: Patient states: Patient called EMS because she has been vomiting jmb all day. Blood glucose was 310 by EMS. Patient has history of liver cancer. Adult Sepsis Screening: The patient does not have new or worsening altered mentation. Patient's respiratory rate is less than 22. Systolic blood pressure is greater than 100. Patient has a qSOFA score of 0- Negative Sepsis Screen. Suicide/Homicide risk assessment- the patient denies having any suicidal and/or homicidal ideations and does not present with any other emotional, behavioral or mental health complaints. Status: Patient is not a online services manager or dependent. Transition of care: patient was not received from another setting of care. 21:08 Acuity: MAURICIO Level 3 b 21:08 Method Of Arrival: Ambulance [facility] Triage Assessment: 21:10 General: Appears in no apparent distress. Pain: Location: back and abdomen Pain jmb currently is 10 out of 10 on a pain scale. HIV screening NA for this visit Offered previously. Neurological: Level of Consciousness is awake, alert, obeys commands, Oriented to person, place, time, Speech is normal, Facial symmetry appears normal, Facial symmetry: tongue is midline. Respiratory: Airway is patent Respiratory effort is even, unlabored, Respiratory pattern is regular, symmetrical. GI: Abdomen is non- distended Reports lower abdominal pain, vomiting. Derm: Skin is pale. Musculoskeletal: Range of motion intact in all extremities. Historical: - Allergies: Aspirin (Rash); Emend (Wheezing); Latex (Hives); PENICILLINS (Rash); - Home Meds: 1. Crestor 40 mg Oral tab 1 tab once daily 2. Humalog 100 unit/mL Sub-Q soln 35 unit three times a day 3. Humalog 100 unit/mL Sub-Q soln sliding scale three times daily 4. Jardiance 25 mg oral tab 1 tab once daily 5. omeprazole 20 mg Oral cpDR 1 cap once daily 6. oxycodone-acetaminophen 5-325 mg Oral tab 1 tab every 4 hours 7. Paxil 10 mg Oral tab 1 tab once daily - PMHx: Cancer, Liver; COPD; Diabetes - IDDM: controlled; Diabetic Neuropathy; Hypercholesterolemia; Hypertension; - PSHx: Carpal Tunnel Repair- Right; Infusaport Placement; - Social history: Smoking status: Patient states was never smoker of tobacco. No barriers to communication noted, The patient speaks fluent Armenian, Speaks appropriately for age. - Family history: Not pertinent. - : The pt / caregiver states he / she is not on anticoagulants. Home medication list is obtained from. - Exposure Risk Screening:: None identified. Screenin:02 Screening information is obtained from the patient. Fall risk: At risk due to gait jmb disturbance. Assistance ADL's: requires no assistance with activities of daily living. Abuse/DV Screen: The patient / caregiver reports he/she is: not in a situation that causes fear, pain or injury. Nutritional screening: No deficits noted. home support is adequate. 12/05 02:11 Advance Directives: Currently, there is no health care proxy. There is no active DNR jmb order. There is no living will. There is no Power of Grocery Manager. Assessment: 12/04 22:02 General: Appears in no apparent distress, comfortable, Behavior is appropriate for age, jmb cooperative. Pain: Location: abdomen and back Pain currently is 10 out of 10 on a pain scale. Neurological: Level of Consciousness is awake, alert, obeys commands, Oriented to person, place, time, Property Field Adjuster are equal bilaterally Speech is normal, Facial symmetry appears normal, Facial symmetry: tongue is midline. Cardiovascular: Capillary refill < 3 seconds Heart tones present Pulses are all present. Rhythm is regular. Respiratory: Airway is patent Respiratory effort is even, unlabored, Respiratory pattern is regular, symmetrical, Breath sounds are clear bilaterally. GI: Abdomen is non- distended Bowel sounds present X 4 quads. Abd is soft X 4 quads. Derm: Skin is pale. Musculoskeletal: Range of motion intact in all extremities. 22:39 General: Appears in no apparent distress, comfortable, Behavior is appropriate for age, jmb cooperative. Neurological: Level of Consciousness is awake, alert, obeys commands, Oriented to person, place, time. Respiratory: Airway is patent Respiratory effort is even, unlabored, Respiratory pattern is regular, symmetrical. 23:30 General: Appears in no apparent distress, comfortable, Behavior is appropriate for age, jmb cooperative, Patient laying on stretcher, appears comfortable. Sister at bedside. NO voiced complaints at this time. . Neurological: Level of Consciousness is awake, alert, obeys commands, Oriented to person, place, time. Respiratory: Airway is patent Respiratory effort is even, unlabored, Respiratory pattern is regular, symmetrical. 12/05 00:01 General: Appears in no apparent distress, comfortable, Behavior is appropriate for age, jmb cooperative, Patient reports that nausea has subsided and she feels much better than upon arrival. No voiced complaints at this time. . Neurological: Level of Consciousness is awake, alert, obeys commands, Oriented to person, place, time. Respiratory: Airway is patent Respiratory effort is even, unlabored, Respiratory pattern is regular, symmetrical. 00:39 General: Appears in no apparent distress, comfortable, Behavior is appropriate for age, jmb cooperative. Neurological: Level of Consciousness is awake, alert, obeys commands, Oriented to person, place, time. Respiratory: Airway is patent Respiratory effort is even, unlabored, Respiratory pattern is regular, symmetrical. 01:45 General: Appears in no apparent distress, comfortable, Behavior is appropriate for age, jmb cooperative. General: Patient sitting on stretcher, appears comfortable. Voices no complaints at this time. . Neurological: Level of Consciousness is awake, alert, Oriented to person, place, time. Respiratory: Airway is patent Respiratory effort is even, unlabored, Respiratory pattern is regular, symmetrical. 02:11 General: Patient instructed on discharge instructions. Patient asked if there were any [facility] questions regarding discharge, patient stated no. Implantable device deaccessed and IV discontinued per hospital policy. Patient signed discharge instructions. Patient discharged in stable condition. . Vital Signs: 12/04 21:10 BP 162 / 73; Pulse 97; Resp 20; Temp 98.0(O); Pulse Ox 92% ; Weight 69.85 kg (R); [facility] Height 5 ft. 3 in. (160.02 cm) (R); Pain 10/10; 12/05 02:11 BP 148 / 70; Pulse 77; Resp 18; Temp 98.5(O); Pulse Ox 94% on R/A; Pain 0/10; b 12/04 21:10 Body Mass Index 27.28 (69.85 kg, 160.02 cm) [facility] Vitals: 12/04 21:10 Log In Time N/A - ambulance arrival. [facility] ED Course: 21:07 Patient visited by Kimberly Quezada, Digital Strategist Senior Manager. ml3 21:07 Patient moved to Waiting ml3 21:07 Patient moved to 7 ml3 21:09 Triage Initiated jmb 21:20 [facility]. le 21:28 Patient visited by Marianna Correia FNP. le 21:29 Patient visited by Marianna Correia FNP. le 22:01 Ammonia (Little Green Tube on Ice, Not Pea Green) Sent. jmb 22:01 Lactic Acid (Juarez tube on ice) Sent. jmb 22:01 Venous Blood Gas (large pea green tube on ice) Sent. jmb 22:01 Basic Metabolic Profile Sent. jmb 22:01 CBC with Diff Sent. jmb 22:01 Cardiac Injury Profile Sent. jmb 22:01 Lipase Sent. jmb 22:01 Liver Profile Sent. jmb 22:02 The patient / caregiver is instructed regarding the plan of care and ED course. jmb 22:02 Troponin Sent. jmb 22:02 Accessed using accessed w/ # 20 Nicholson needle, sterile technique, per hospital protocol. swathib Port-a-Cath in patient's anterior aspect of right upper chest. Clean & dry. Dressing intact. Dressing loose. Good blood return. Flushes easily. Labs drawn. (by ED staff). Sent per order to lab. 22:04 Patient visited by Wilner Patel RN. jmlisa 22:40 Patient visited by Wilner Patel RN. jmb 23:18 [facility] Payment Agreement was scanned into [employer] and attached to record. zo 23:31 Patient visited by Wilner Patel RN. jmb 23:49 Inserted saline lock: 20 gauge in left antecubital area. oct 23:56 Paco Vega DO is Attending Physician. mm11 12/05 00:02 Patient visited by Wilner Patel,CRISTIN. swathib 00:39 Urinalysis Sent. jmb 00:40 Patient visited by Wilner Patel,CRISTIN. jmb 01:46 Patient visited by Wilner Patel,CRISTIN. jmb 02:11 Discontinued lock intact, bleeding controlled, pressure dressing applied, No jmb redness/swelling at site. No procedures done that require assistance. 02:19 CT ABD & PELVIS: IV Contrast Only Returned. EDMS 08:45 Abdomen, Flat\E\Upright,PA Chest Returned. EDMS 09:18 T-Sheet-- Draft Copy was scanned into [employer] and attached to record. gb Administered Medications: 12/04 22:11 Drug: NS 0.9% 1000 ml [sodium chloride 0.9 % intravenous solution] Route: IV; Rate: jmb bolus; Site: Implantable Access Device; 22:11 Drug: Ondansetron 4 mg [ondansetron HCl 2 mg/mL intravenous solution (2 mL)] Route: jmb IVP; Site: Implantable Access Device; 22:11 Drug: morphine 4 mg [morphine 4 mg/mL intravenous cartridge (1 mL)] Route: IVP; Site: [facility] Implantable Access Device; 23:58 Drug: NS 0.9% 1000 ml [sodium chloride 0.9 % intravenous solution] Route: IV; Rate: 100 jmb mL/hr; Site: left antecubital; 12/05 02:06 Drug: Ondansetron 4 mg [ondansetron HCl 2 mg/mL intravenous solution (2 mL)] Route: jmb IVP; Site: left antecubital; 02:11 Drug: oxyCODONE-acetaminophen 1 tabs [oxycodone-acetaminophen 5 mg-325 mg tablet (1 jmb tabs)] Route: PO; 02:11 Drug: Magnesium Citrate 300 ml [magnesium citrate oral solution (300 mL)] Route: PO; b Order Results: Lab Order: Basic Metabolic Profile; SPEC'M 12/04/16 21:53 Test: GLUCOSE, FASTING; Value: 281; Range: 80-110; Abnormal: Above high normal; Units: MG/DL; Status: F Test: BLOOD UREA NITROGEN; Value: 16; Range: 7-18; Units: MG/DL; Status: F Test: CREATININE FOR GFR; Value: 0.68; Range: 0.55-1.02; Units: MG/DL; Status: F Test: GLOMERULAR FILTRATION RATE; Value: > 60.0; Range: >45; Status: F Test: SODIUM LEVEL; Value: 137; Range: 136-145; Units: MEQ/L; Status: F Test: POTASSIUM SERUM; Value: 3.8; Range: 3.5-5.1; Units: MEQ/L; Status: F Test: CHLORIDE LEVEL; Value: 98; Range: 98-107; Units: MEQ/L; Status: F Test: CARBON DIOXIDE LEVEL; Value: 33; Range: 21-32; Abnormal: Above high normal; Units: MEQ/L; Status: F Test: ANION GAP; Value: 6; Range: 8-16; Abnormal: Below low normal; Units: MEQ/L; Status: F Test: CALCIUM LEVEL; Value: 8.7; Range: 8.8-10.2; Abnormal: Below low normal; Units: MG/DL; Status: F Test Note: ; Units are mL/min/1.73 m2 Chronic Kidney Disease Staging per NKF: Stage I & II GFR >=60 Normal to Mildly Decreased Stage III GFR 30-59 Moderately Decreased Stage IV GFR 15-29 Severely Decreased Stage V GFR <15 Very Little GFR Left ESRD GFR <15 on STAFF RESPIRATORY THERAPIST Lab Order: CBC with Diff; SPEC'M 12/04/16 21:53 Test: WHITE BLOOD COUNT; Value: 7.4; Range: 4.0-10.0; Units: K/mm3; Status: F Test: RED BLOOD COUNT; Value: 3.90; Range: 4.00-5.40; Abnormal: Below low normal; Units: M/mm3; Status: F Test: HEMOGLOBIN; Value: 9.9; Range: 12.0-16.0; Abnormal: Below low normal; Units: g/dl; Status: F Test: HEMATOCRIT; Value: 29.3; Range: 36.0-47.0; Abnormal: Below low normal; Units: %; Status: F Test: MEAN CORPUSCULAR VOLUME; Value: 75.3; Range: 80.0-96.0; Abnormal: Below low normal; Units: fl; Status: F Test: MEAN CORPUSCULAR HEMOGLOBIN; Value: 25.5; Range: 27.0-33.0; Abnormal: Below low normal; Units: pg; Status: F Test: MEAN CORPUSCULAR HGB CONC; Value: 33.9; Range: 32.0-36.5; Units: g/dl; Status: F Test: RED CELL DISTRIBUTION WIDTH; Value: 18.0; Range: 11.5-14.5; Abnormal: Above high normal; Units: %; Status: F Test: PLATELET COUNT, AUTOMATED; Value: 52; Range: 150-450; Abnormal: Below low normal; Units: k/mm3; Status: F Test: NEUTROPHILS %; Value: 77.2; Range: 36.0-66.0; Abnormal: Above high normal; Units: %; Status: F Test: LYMPH %; Value: 12.4; Range: 24.0-44.0; Abnormal: Below low normal; Units: %; Status: F Test: MONO %; Value: 7.3; Range: 0.0-5.0; Abnormal: Above high normal; Units: %; Status: F Test: EOS %; Value: 0.4; Range: 0.0-3.0; Units: %; Status: F Test: BASO %; Value: 0.1; Range: 0.0-1.0; Units: %; Status: F Test: LARGE UNSTAINED CELL %; Value: 2.5; Range: 0.0-4.0; Units: %; Status: F Test: NEUTROPHILS #; Value: 5.7; Range: 1.8-7.7; Units: K/mm3; Status: F Test: LYMPH #; Value: 0.9; Range: 1.5-4.5; Abnormal: Below low normal; Units: K/mm3; Status: F Test: MONO #; Value: 0.5; Range: 0.0-0.8; Units: K/mm3; Status: F Test: EOS #; Value: 0.0; Range: 0.0-0.50; Units: K/mm3; Status: F Test: BASO #; Value: 0.0; Range: 0.0-0.2; Units: K/mm3; Status: F Test: LARGE UNSTAINED CELL #; Value: 0.2; Range: 0.0-0.4; Units: K/mm3; Status: F Lab Order: Cardiac Injury Profile; SPEC'M 12/04/16 21:53 Test: CPK CREATINE PHOSPHOKINASE; Value: 30; Range: 26-192; Units: U/L; Status: F Test: CK-MB VALUE MASS; Value: 1.0; Range: 0.0-3.6; Units: NG/ML; Status: F Test: MB/CK RELATIVE INDEX; Value: 3.33; Range: < OR =4; Status: F Test Note: ; DIAGNOSIS CRITERIA MMB ng/ml Relative Index (RI) NON-AMI < or = 5 N/A JUAREZ ZONE > 5 < or = 4 AMI > 5 > 4 Lab Order: Lipase; SPEC'M 12/04/16 21:53 Test: LIPASE; Value: 271; Range: 73-393; Units: U/L; Status: F Lab Order: Liver Profile; SPEC'M 12/04/16 21:53 Test: AST/SGOT; Value: 21; Range: 15-37; Units: U/L; Status: F Test: ALT/SGPT; Value: 11; Range: 12-78; Abnormal: Below low normal; Units: U/L; Status: F Test: ALKALINE PHOSPHATASE; Value: 295; Range: 45-117; Abnormal: Above high normal; Units: U/L; Status: F Test: BILIRUBIN,TOTAL; Value: 0.6; Range: 0.2-1.0; Units: MG/DL; Status: F Test: BILIRUBIN,DIRECT; Value: 0.3; Range: 0.0-0.2; Abnormal: Above high normal; Units: MG/DL; Status: F Test: TOTAL PROTEIN; Value: 6.5; Range: 6.4-8.2; Units: GM/DL; Status: F Test: ALBUMIN; Value: 3.1; Range: 3.2-5.2; Abnormal: Below low normal; Units: GM/DL; Status: F Test: ALBUMIN/GLOBULIN RATIO; Value: 0.91; Range: 1.00-1.93; Abnormal: Below low normal; Status: F Lab Order: Troponin; SPEC'M 12/04/16 21:53 Test: TROPONIN I; Value: < 0.02; Range: < 0.10; Units: NG/ML; Status: F Test Note: ; Troponin I Reference Interval for [employer] LOCI: 99th Percentile= 0.00-0.045 ng/ml Risk Stratification: <= 0.10 ng/ml Decreased Risk for Adverse Clinical Events. 0.10-1.50 ng/ml Increased Risk for Adverse Clinical Events. Evaluation of additional criterion and/or repeat testing in 2-6 hours is suggested to rule out myocardial damage. >= 1.50 ng/ml Indicative of Myocardial Injury. Lab Order: Urinalysis; SPEC'M 12/05/16 00:38 Test: APPEARANCE, URINE; Value: CLEAR; Range: CLEAR; Status: F Test: COLOR, URINE; Value: YELLOW; Range: YELLOW; Status: F Test: PH,URINE; Value: 5.0; Range: 5.0-9.0; Units: UNITS; Status: F Test: SPECIFIC GRAVITY URINE AUTO; Value: 1.026; Range: 1.002-1.035; Status: F Test: PROTEIN, URINE AUTO; Value: NEGATIVE; Range: NEGATIVE; Units: mg/dL; Status: F Test: GLUCOSE, URINE (UA) AUTO; Value: 3+; Range: NEGATIVE; Abnormal: Above high normal; Units: mg/dL; Status: F Test: KETONE, URINE AUTO; Value: TRACE; Range: NEGATIVE; Abnormal: Above high normal; Units: mg/dL; Status: F Test: UROBILINOGEN, URINE AUTO; Value: 4.0; Range: 0.0-2.0; Abnormal: Above high normal; Units: mg/dL; Status: F Test: BILIRUBIN, URINE AUTO; Value: NEGATIVE; Range: NEGATIVE; Status: F Test: NITRITE, URINE AUTO; Value: NEGATIVE; Range: NEGATIVE; Status: F Test: LEUKOCYTE ESTERASE, URINE AUTO; Value: TRACE; Range: NEGATIVE; Abnormal: Above high normal; Status: F Test: BLOOD, URINE BLOOD; Value: NEGATIVE; Range: NEGATIVE; Status: F Test: WBC, URINE AUTO; Value: 3; Range: 0-3; Units: /HPF; Status: F Test: RBC, URINE AUTO; Value: 2; Range: 0-3; Units: /HPF; Status: F Test: BACTERIA, URINE AUTO; Value: NEGATIVE; Range: NEGATIVE; Status: F Test: SQUAMOUS EPITHELIAL CELL UR AU; Value: 0; Range: 0-6; Units: /HPF; Status: F Test: MUCUS, URINE; Value: SMALL; Range: NEGATIVE; Status: F Test: HYALINE CAST, URINE AUTO; Value: 0; Range: 0-1; Units: /LPF; Status: F Lab Order: Venous Blood Gas (large pea green tube on ice); [facility] 12/04/16 21:53 Test: VENOUS PH; Value: 7.401; Range: 7.330-7.430; Units: UNITS; Status: F Test: VENOUS PARTIAL PRESSURE CO2; Value: 48.9; Range: 38.0-50.0; Units: mmHg; Status: F Test: VENOUS PARTIAL PRESSURE O2; Value: 38.0; Range: 30.0-50.0; Units: mmHg; Status: F Test: VENOUS TOTAL CO2; Value: 31.2; Range: 24.0-28.0; Abnormal: Above high normal; Units: MEQ/L; Status: F Test: VENOUS HCO3; Value: 29.7; Range: 23.0-27.0; Abnormal: Above high normal; Units: MEQ/L; Status: F Test: VENOUS BASE EXCESS; Value: 4.2; Range: -2.0-2.0; Abnormal: Above high normal; Status: F Test: VENOUS STANDARD HCO3; Value: 27.7; Units: MEQ/L; Status: F Test: VENOUS O2 SATURATION; Value: 69.5; Range: 60.0-80.0; Units: %; Status: F Lab Order: Lactic Acid (Juarez tube on ice); [facility] 12/04/16 21:54 Test: LACTIC ACID SEPSIS PROTOCOL; Value: 1.4; Range: 0.4-2.0; Units: MMOL/L; Status: F Lab Order: Ammonia ([place] Green Tube on Ice, Not Pea Green); [facility] 12/04/16 21:53 Test: AMMONIA; Value: 38; Range: <32; Abnormal: Above high normal; Units: uMOL/L; Status: F Radiology Order: Abdomen, Flat\E\Upright,PA Chest Test: Abdomen, Flat\E\Upright,PA Chest REASON FOR EXAMINATION: Abdomen Pain; Clinical: Abdominal pain.; ; Technique: Upright view of the chest with supine and upright views of the; abdomen and pelvis.; ; Findings:; Frontal view of the chest demonstrates chronic fibroatelectatic changes. No free; air below the diaphragm to suspect pneumoperitoneum. Supine and upright views of; the abdomen and pelvis demonstrate nonspecific bowel gas pattern. No; obstruction. No obvious perforation. No organomegaly. Skeletal structures; stable.; ; Impression:; Chronic stable changes.; Nonspecific bowel gas pattern.; ; ; Signed by; Junior Taylor MD 12/05/2016 08:12 A; Radiology Order: CT ABD & PELVIS: IV Contrast Only Test: CT ABD & PELVIS: IV Contrast Only REASON FOR EXAMINATION: Abdomen Pain; ; CLINICAL HISTORY: Abdominal pain.; TECHNIQUE: Multiple axial, sagittal and coronal CT images were obtained through the abdomen and pelvi; s after administration of intravenous contrast material.; COMMENTS:; Comparison is made to the prior exam performed on 11/02/2016.; Unchanged hepatomegaly with multiple hypodense ill-defined hepatic lesions suggestive of neoplastic p; athology/infiltrative liver disease.; There is no intra or extrahepatic biliary ductal dilatation. The spleen is normal. The gallbladder co; ntains a gallstone. The pancreas is of normal contour and attenuation characteristics. There is no ev; idence of adrenal mass.; No change in nonobstructing right nephrolithiasis.; Both kidneys demonstrate prompt and equal nephrograms. The kidneys are normal in size, shape and conf; iguration. There is no evidence of renal or ureteral mass. No ureteral calculi are identified. There; is no hydroureter or hydronephrosis.; No evidence for appendicitis. There is no bowel wall thickening. No evidence for small or large venkat; l obstruction. There is no change in small amount of free fluid.; There is no evidence of intrinsic or extrinsic bladder mass. Mild diffuse thickening of the bladder.; Images of the lung bases show no evidence of pleural or parenchymal mass. There are no pleural effusi; ons.; The bony structures are free of lytic or blastic lesions. Multilevel degenerative changes are seen in; volving the thoracolumbar spine. Scattered calcifications are seen involving the aorta and major bran; ches compatible with atherosclerosis.; IMPRESSION:; No change is noted since the prior exam.; Diffuse infiltrative liver disease.; Small amount of free fluid.; Nonobstructing right nephrolithiasis.; Cholelithiasis.; Constipation.; Mild diffuse thickening of the bladder.; Thank you for your kind referral of this patient.; ; Outcome: 02:02 Discharge ordered by Provider. mm11 02:11 Discharge Assessment: Patient awake, alert and oriented x 3. No cognitive and/or jmb functional deficits noted. Patient verbalized understanding of disposition instructions. Patient awake and alert. obeys commands, Oriented to person, place and time. Patient verbalized understanding of disposition instructions. Patient has no functional deficits. patient administered narcotics - yes. Pt provided with safe discharge. The following High Risk Discharge criteria are identified: None. Discharged to home ambulatory, with family. Condition: stable Condition: improved. Discharge instructions given to patient, Instructed on discharge instructions, follow up and referral plans. medication usage, Demonstrated understanding of instructions, medications, Pt was receptive of discharge instructions/ teaching. CT Study completed. Property sent home with patient. 02:17 Patient left the ED. aarti Signatures: Dispatcher [employer] EDMS Sarah Miller, RN Selina Dietz, Jimmy Reg Kimberly Schaefer, Digital Strategist Senior Manager Unit ml3 Angelique Luo Matthew, DO mm11 Marianna Correia, MOLDING SANDER Wilnre Sorto,CRISTIN broussard Chart Complete MTDD
--- NOTE | 2016-12-07 03:18 | EDDOCDS ---
Physician Documentation [facility] Name: Stephanie Arzate Age: 61 yrs Sex: Female : 1955 Arrival Date: 12/04/2016 Time: 21:03 Bed 7 Private MD: Disposition: 12/05/16 02:02 Discharged to Home/Self Care. Impression: Constipation. - Condition is Stable. - Discharge Instructions: Constipation, Adult, Constipation, Adult, [id number]. - Prescriptions for Miralax 17 gram/dose - take 17 gram by ORAL route once daily As needed dilute in 8 ounces of water or juice; 1 bottle. - Medication Reconciliation, Local Pharmacy Hours form. - Follow up: Private Physician; When: 2 - 3 days; Reason: Continuance of care. - Problem is an acute exacerbation. - Symptoms have improved. Historical: - Allergies: Aspirin (Rash); Emend (Wheezing); Latex (Hives); PENICILLINS (Rash); - Home Meds: 1. Crestor 40 mg Oral tab 1 tab once daily 2. Humalog 100 unit/mL Sub-Q soln 35 unit three times a day 3. Humalog 100 unit/mL Sub-Q soln sliding scale three times daily 4. Jardiance 25 mg oral tab 1 tab once daily 5. omeprazole 20 mg Oral cpDR 1 cap once daily 6. oxycodone-acetaminophen 5-325 mg Oral tab 1 tab every 4 hours 7. Paxil 10 mg Oral tab 1 tab once daily - PMHx: Cancer, Liver; COPD; Diabetes - IDDM: controlled; Diabetic Neuropathy; Hypercholesterolemia; Hypertension; - PSHx: Carpal Tunnel Repair- Right; Infusaport Placement; - Social history: Smoking status: Patient states was never smoker of tobacco. No barriers to communication noted, The patient speaks fluent Malagasy, Speaks appropriately for age. - Family history: Not pertinent. - : The pt / caregiver states he / she is not on anticoagulants. Home medication list is obtained from. - Exposure Risk Screening:: None identified. Vital Signs: 12/04 21:10 BP 162 / 73; Pulse 97; Resp 20; Temp 98.0(O); Pulse Ox 92% ; Weight 69.85 kg / 153.99 jmb lbs (R); Height 5 ft. 3 in. (160.02 cm) (R); Pain 10/10; 12/05 02:11 BP 148 / 70; Pulse 77; Resp 18; Temp 98.5(O); Pulse Ox 94% on R/A; Pain 0/10; b 12/04 21:10 Body Mass Index 27.28 (69.85 kg, 160.02 cm) [facility] MDM: 12/04 21:21 NS 0.9% 1000 ml IV at bolus once ordered. le 21:21 NS 0.9% 1000 ml IV at 100 mL/hr continuous ordered. le 21:21 Ondansetron 4 mg IVP once ordered. le 21:21 morphine 4 mg IVP every 30 minutes; Document pain score/vitals after each dose (Hold if le SBP < 90mmHg) x2 ordered. 21:21 IV Saline Lock ordered. le 21:21 Undress patient appropriately for examination ordered. le 21:22 Abdomen, Flat\E\Upright,PA Chest Ordered. EDMS 21:23 Basic Metabolic Profile Ordered. EDMS 21:23 CBC with Diff Ordered. EDMS 21:23 Cardiac Injury Profile Ordered. EDMS 21:23 Lipase Ordered. EDMS 21:23 Liver Profile Ordered. EDMS 21:23 Troponin Ordered. EDMS 21:23 Urinalysis Ordered. EDMS 21:23 NOTHING BY MOUTH+DIET ordered. EDMS 21:24 Venous Blood Gas (large pea green tube on ice) Ordered. EDMS 21:26 Misc. Nursing Order ordered. le 21:29 Lactic Acid (Juarez tube on ice) Ordered. EDMS 21:29 Ammonia (Little Green Tube on Ice, Not Pea Green) Ordered. EDMS 22:10 Venous Blood Gas (large pea green tube on ice) Reviewed. le 23:02 Basic Metabolic Profile Reviewed. le 23:02 CBC with Diff Reviewed. le 23:02 Liver Profile Reviewed. le 23:02 Ammonia (Little Green Tube on Ice, Not Pea Green) Reviewed. le 23:02 Cardiac Injury Profile Reviewed. le 23:02 Lipase Reviewed. le 23:02 Troponin Reviewed. le 23:02 Lactic Acid (Juarez tube on ice) Reviewed. le 23:18 Financial registration complete. zo 23:18 [facility] Payment Agreement was scanned into Clarity and attached to record. zo 23:25 CT ABD & PELVIS: IV Contrast Only Ordered. EDMS 12/05 01:19 Urinalysis Reviewed. mm11 02:02 Ondansetron 4 mg IVP once ordered. mm11 02:02 oxyCODONE-acetaminophen 5 mg-325 mg 1 tabs PO once ordered. mm11 02:02 Magnesium Citrate Liquid 300 ml PO once; Dispense home with pt. ordered. mm11 :18 T-Sheet-- Draft Copy was scanned into Clarity and attached to record. gb Administered Medications: 12/04 22:11 Drug: NS 0.9% 1000 ml [sodium chloride 0.9 % intravenous solution] Route: IV; Rate: jmb bolus; Site: Implantable Access Device; 22:11 Drug: Ondansetron 4 mg [ondansetron HCl 2 mg/mL intravenous solution (2 mL)] Route: jmb IVP; Site: Implantable Access Device; 22:11 Drug: morphine 4 mg [morphine 4 mg/mL intravenous cartridge (1 mL)] Route: IVP; Site: [facility] Implantable Access Device; 23:58 Drug: NS 0.9% 1000 ml [sodium chloride 0.9 % intravenous solution] Route: IV; Rate: 100 jmb mL/hr; Site: left antecubital; 12/05 02:06 Drug: Ondansetron 4 mg [ondansetron HCl 2 mg/mL intravenous solution (2 mL)] Route: jmb IVP; Site: left antecubital; 02:11 Drug: oxyCODONE-acetaminophen 1 tabs [oxycodone-acetaminophen 5 mg-325 mg tablet (1 jmb tabs)] Route: PO; 02:11 Drug: Magnesium Citrate 300 ml [magnesium citrate oral solution (300 mL)] Route: PO; jmb Signatures: [facility] EDSelina Perkins, Reg Reg gb Angelique Luo Matthew, DO DO mm11 Marianna Correia, BACKHAUL DRIVER BACKHAUL DRIVER Wilner Jones RN RN aarti The chart was reviewed and I authenticate all verbal orders and agree with the evaluation and treatment provided.Attachments: 12/04 23:18 [facility] Payment Agreement zo 12/05 08:18 T-Sheet-- Draft Copy gb Chart Complete MTDD
== END 2016-12-05 02:17 | disposition home or self-care (01) ==
LOC: M ED 21:03
DX: K59.00 Constipation, unspecified (principal); J44.9 Chronic obstructive pulmonary disease, unspecified; E10.9 Type 1 diabetes mellitus without complications; E10.40 Type 1 diabetes mellitus with diabetic neuropathy, unspecified; E78.00 Pure hypercholesterolemia, unspecified; I10 Essential (primary) hypertension; Z85.05 Personal history of malignant neoplasm of liver; Z79.4 Long term (current) use of insulin; Z79.891 Long term (current) use of opiate analgesic; Z79.899 Other long term (current) drug therapy; Z88.0 Allergy status to penicillin; Z88.6 Allergy status to analgesic agent; Z88.8 Allergy status to other drugs, medicaments and biological substances; Z91.040 Latex allergy status
CPT/HCPCS: 36415; 74022; 74177; 80048; 80076; 81001; 82140; 82550; 82553; 82803; 83605; 83690; 85025; 96374; 96375; 96376; 99285; J2405; Q9967

== ENCOUNTER → 2016-12-17 | Outpatient (REF) | payer BC | LOC: M LAB REF 12:19 | PROVIDERS: ATTEND Internal Medicine Medical Oncology | DX: C22.1 Intrahepatic bile duct carcinoma (principal); D64.9 Anemia, unspecified ==

== ENCOUNTER 2016-12-18 07:47 | Outpatient (CLI) | payer BC ==
[~2016-12-18] VITALS: Ht 160 cm; Wt 80.0 kg
[~2016-12-18 07:47] MED LIST changes: +ACETAMINOPHEN TAB 650MG DOSE (2X325MG) PO SCH; +diphenhydrAMINE 25 MG CAP PO SCH
[2016-12-18] MEDS ORDERED: SODIUM CHLORIDE 0.9% INJ 10 ML SYR IV SCH (09:00)
== END 2016-12-18 13:00 | disposition home or self-care (01) ==
LOC: M INFU 07:47
PROVIDERS: ATTEND Internal Medicine Medical Oncology
DX: C22.1 Intrahepatic bile duct carcinoma (principal); D64.9 Anemia, unspecified
CPT/HCPCS: 36430; P9016

== ENCOUNTER → 2016-12-21 | Outpatient (CLI) | payer BC ==
[~2016-12-21] MED LIST changes: -ACETAMINOPHEN TAB 650MG DOSE (2X325MG) PO SCH; +GASTROGRAFIN SOLUTION 30ML (Q9963) As Ordered ONE; +ISOVUE-370 76% 100ML VIAL (Q9967) As Ordered ONE; -diphenhydrAMINE 25 MG CAP PO SCH
--- NOTE | 2016-12-21 13:11 | REP ---
CT study of the chest with IV contrast: History: Cholangiocarcinoma. Comparison CT studies date back to August 23, 2016. The most recent comparison CT abdomen and pelvis is from December 05, 2016. CT contrast dose: 100 ml of Isovue [address] findings: There are multiple metastatic pulmonary nodules. Several of these are new from the prior study. The largest of these is in the left base posteriorly just above the diaphragm measuring 0.8 cm in diameter. These nodules are present bilaterally. Several have enlarged since the prior study in addition to several new nodules appearing. There is no evidence of pleural or pericardial effusion. The large infiltrative hepatic mass will be discussed in the abdomen CT report. There is new subcarinal lymphadenopathy with a cluster of three enhancing lymph nodes in the subcarinal region. In the aggregate this niles area measures 20 by 13 by 14 mm. No other mediastinal adenopathy is seen. Bone window settings show no bony destructive lesion. There is an Qjwqwo-H-Focq via the right internal jugular vein terminating in the superior vena cava. Impression: Progressive pulmonary metastatic disease seen. There is coarse discoid atelectasis in the right lower lobe, right middle lobe, and lingula. Signed by Vasiliy Mckeon MD 12/21/2016 02:31 P
--- NOTE | 2016-12-21 13:22 | REP ---
CT ABDOMEN AND PELVIS WITHOUT AND WITH IV CONTRAST: WITH ORAL CONTRAST. HISTORY: Cholangiocarcinoma. Comparison CT studies are reviewed, the most recent of which is from December 05, 2016. The most remote abdominal CT study is from November 02, 2016. CT CONTRAST DOSE: 100 mL of Isovue-[address] FINDINGS: Pre- and postcontrast CT images through the liver again demonstrate an extensive infiltrative partially confluent mass occupying much of the right lobe of the liver and some of the left lobe. The lesion measures up to 14.2 cm in greatest transverse dimension. Previously, it measured 12.5 cm. No adrenal lesion is seen. No splenic mass is seen. There is an accessory splenule high in the left upper quadrant. The gallbladder contains a calcified, 1.1 cm gallstone. No pancreatic mass lesion is seen. No retroperitoneal adenopathy is observed. The kidneys enhance symmetrically. There is a 1.4 cm cyst at the right mid kidney. There is a calculus at the lower pole collecting system of the right kidney measuring 7 mm in diameter. No hydronephrosis is seen. There is mild ascites most notable in the pelvic reflections. A small quantity of fluid is seen in the pericolic gutters. This is a little more prominent than on the prior CT study from December 05, 2016. Small and large intestinal bowel loops are unremarkable. No definite peritoneal mass or studding is seen. No bony destructive lesion is appreciated. IMPRESSION: Extensive infiltrative neoplastic disease in the liver slightly larger than on the prior study. Mild diffuse ascites. This has increased since the prior study. Calcified gallstone and intrarenal nephrolithiasis without hydronephrosis on the right side are noted as incidental findings. Signed by Vasiliy Mckeon MD 12/21/2016 02:33 P
== END ==
LOC: M RAD 09:30
PROVIDERS: ATTEND Internal Medicine Medical Oncology
DX: C22.1 Intrahepatic bile duct carcinoma (principal); R18.8 Other ascites; K80.20 Calculus of gallbladder without cholecystitis without obstruction; N20.0 Calculus of kidney; J98.11 Atelectasis
CPT/HCPCS: 71260; 74178; Q9963; Q9967

== ENCOUNTER → 2016-12-25 | Outpatient (CLI) | payer BC ==
[~2016-12-25] MED LIST changes: -GASTROGRAFIN SOLUTION 30ML (Q9963) As Ordered ONE; -ISOVUE-370 76% 100ML VIAL (Q9967) As Ordered ONE
--- NOTE | 2016-12-25 10:37 | REP ---
MR BRAIN WITHOUT AND WITH CONTRAST: HISTORY: Cholangiocarcinoma. Contrast: ProHance 13 mL. COMPARISON: 03/09/2006 Areas of increased signal intensity on T2-weighted images are present in the periventricular and subcortical white matter. This represents small vessel ischemic disease. There is no intraparenchymal hemorrhage, infarct, mass or midline shift. The sella turcica is partially empty. There is no abnormal enhancement. The ventricular system is normal in appearance. There is no extracerebral collection. Minimal mucosal thickening is present in the mastoid air cells and left ethmoid and maxillary sinuses. IMPRESSION: Small vessel ischemic disease. Signed by Octavio Baez MD 12/25/2016 10:42 A
== END ==
LOC: M RAD 08:20
PROVIDERS: ATTEND Internal Medicine Medical Oncology
DX: C22.1 Intrahepatic bile duct carcinoma (principal); R47.81 Slurred speech; I73.9 Peripheral vascular disease, unspecified
CPT/HCPCS: 70553; A9576

== ENCOUNTER 2017-01-02 23:13 | Inpatient (IN) | payer BC ==
[~2017-01-02] VITALS: Ht 160 cm; Wt 69.5 kg
[2017-01-03 00:07] LABS: BASO % 0.1 % (0.0-1.0); EOS # 0.1 K/mm3 (0.0-0.50); EOS % 1.7 % (0.0-3.0); LARGE UNSTAINED CELL # 0.1 K/mm3 (0.0-0.4); LARGE UNSTAINED CELL % 1.3 % (0.0-4.0); LYMPH # 0.9 K/mm3 (1.5-4.5); LYMPH % 11.3 % (24.0-44.0); MEAN CORPUSCULAR HEMOGLOBIN 27.1 pg (27.0-33.0); MEAN CORPUSCULAR HGB CONC 32.9 g/dl (32.0-36.5); MEAN CORPUSCULAR VOLUME 82.5 fl (80.0-96.0); MONO # 0.2 K/mm3 (0.0-0.8); MONO % 2.9 % (0.0-5.0); NEUTROPHILS # 6.2 K/mm3 (1.8-7.7); NEUTROPHILS % 82.7 % (36.0-66.0); PLATELET COUNT, AUTOMATED 396 k/mm3 (150-450); RED CELL DISTRIBUTION WIDTH 16.8 % (11.5-14.5); WHITE BLOOD COUNT 7.4 K/mm3 (4.0-10.0)
[2017-01-03 00:20] LABS: ALBUMIN 3.5 GM/DL (3.2-5.2); ALBUMIN/GLOBULIN RATIO 0.83 (1.00-1.93); ALKALINE PHOSPHATASE 325 U/L (45-117); ALT/SGPT 22 U/L (12-78); ANION GAP 12 MEQ/L (8-16); AST/SGOT 45 U/L (15-37); BILIRUBIN,DIRECT 0.3 MG/DL (0.0-0.2); BILIRUBIN,TOTAL 0.9 MG/DL (0.2-1.0); BLOOD UREA NITROGEN 22 MG/DL (7-18); CALCIUM LEVEL 9.2 MG/DL (8.8-10.2); CARBON DIOXIDE LEVEL 28 MEQ/L (21-32); CHLORIDE LEVEL 95 MEQ/L (98-107); CREATININE FOR GFR 0.81 MG/DL (0.55-1.02); GLOMERULAR FILTRATION RATE > 60.0 (>45); GLUCOSE, FASTING 108 MG/DL (80-110); SODIUM LEVEL 135 MEQ/L (136-145); TOTAL PROTEIN 7.7 GM/DL (6.4-8.2)
[2017-01-03] MEDS ORDERED: NS 1,000 ML IV ONE ×2 (01:00)
[2017-01-03] MEDS ORDERED: ONDANSETRON 4MG/2ML VIAL (J2405) IV ONE ×2 (02:15)
[2017-01-03] MEDS ORDERED: MORPHINE 4 MG/ML 1ML SYRINGE IV ONE (02:15)
[2017-01-03] MEDS ORDERED: ACETAMINOPHEN TAB 650MG DOSE (2X325MG) PO PRN (03:15)
[2017-01-03] MEDS ORDERED: NS 1,000 ML IV SCH (04:23)
[2017-01-03] MEDS ORDERED: ALBUTEROL 90 MCG/ACT 8GM HFA INHALER INH PRN (04:30)
[2017-01-03] MEDS ORDERED: DEXTROSE 50% 50 ML SYRINGE IV PRN (04:30)
[2017-01-03] MEDS ORDERED: GLUCOSE 4 GM CHEW TABLET PO PRN (04:30)
[2017-01-03] MEDS ORDERED: GLUCAGON FOR INJ 1 MG VIAL (J1610) SC PRN (04:30)
--- NOTE | 2017-01-03 04:33 | HPEPDOC ---
General Date of Admission Jan 03, 2017 at 03:09 Chief Complaint The patient is a 61-year-old female Presented to the ER with complaints of nausea and vomiting since this afternoon that has caused her to be dizzy. History of Present Illness Patient is a 61 year old female with a PMHx of cholangiocarcinoma ( Stage 4, Initially diagnosed as Stage 2 on 08/2016, on chemotherapy), DM2, COPD , Hx of nephrolithiasis and cholilithiasis who presented to the ER with complaints of nausea and vomiting since this afternoon. Patient notes that since her diagnosis of cholangiocarcinoma in 08/2016 she has started chemotherapy in September. Since then she has had nausea and vomiting on the third day after chemotherapy that she is now use to. However today she began to experience light-headedness and dizziness after she had 4 episodes of vomiting. She described the vomit as liquid, no blood or bile. Also began to have some abdominal pain after she vomited. She denies passing out at home. She does note that she is having some abdominal pain on the right side, continuous since this afternoon. Reported as a 9/10, stabbing, non-radiating pain, without any alleviating or aggravating factors. She notes a fever of 101.0F at home. She denies any chest pain, shortness of breath, cough, or palpitations. She denies any constipation, diarrhea or dysuria. Home Medications Scheduled Insulin Human Lispro (Humalog) 1 Units/0.01 Ml Inj 0 SC AC (Reported) sliding scale Scheduled PRN Albuterol Sulfate (Ventolin Hfa) 200 Puff/8 Gm Aers 2 PUFF INH Q4H PRN PRN SHORTNESS OF BREATH (Reported) Oxycodone/Acetaminophen (Percocet 10-325 mg) 1 Tab Tab 1 TAB PO Q6H PRN PRN PAIN (Reported) Paroxetine Hydrochloride (Paxil) 10 Mg Tab 10 MG PO DAILY PRN PRN depression ( Reported) Allergies Coded Allergies: Aprepitant (Verified Allergy, Severe, SOB, 11/02/16) Aspirin (Unverified Allergy, Mild, POSSIBLE ALLERGY - PT HAD RXN WIH 325MG TABLET, 07/07/13) Latex (Unverified Allergy, Mild, RASH, 01/16/13) Penicillins (Verified Allergy, Mild, RASH, 08/23/16) TAPE (Verified Allergy, Mild, MILD RASH & REDNESS WITH PLASTIC TAPE & BANDAIDS, 07/07/13) Past Medical History Medical History Cholangiocarcinoma (Stage 4, Initially diagnosed as Stage 2 on 08/2016, on chemotherapy), DM2, COPD, Hx of nephrolithiasis and cholilithiasis Surgical History Carpal tunnel surgery on right wrist Family History - Non-contributory Social History - Denies the use of alcohol, tobacco or illicit drugs - Denies recent travel or sick contacts - Lives with youngest son - 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; 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 [employer] Review of Symptoms Other systems Constitutional: Recent trauma Eyes: No visual changes or eye pain Ears, Nose, Throat: Denies nose bleeds, or difficulty swallowing Cardiovascular: Denies chest pain, sweating, or orthopnea Respiratory: Denies cough, wheezing, or shortness of breath GI: Positive nausea, vomiting, and abdominal pain, No diarrhea or constipation : Denies pain with urination or frequency Musculoskeletal: Denies joint pain or swelling Neuro / Psych: Denies muscle weakness or sensory loss Skin: No skin rashes noted All other review of systems negative; otherwise stated in history of present illness Vital Signs - Vitals: BP 149/70, HR 106, RR 16, Sat 96%RA, Temp 98.3F - General: Lying in bed, No acute distress, Speaking in full sentences, AAOx3 - HEENT: NC, AT, PERRLA, EOMI - CVS: RRR, +S1S2, - Murmurs / rubs / gallops - Lungs: Fair air entry bilaterally, Clear to auscultation, No wheezing / rales / rhonchi - Abdomen: Soft, Non-distended, Epigastric and RUQ tenderness, + Bowel sounds x 4 - Extremities: + PPx4, No lower extremity edema, No calf tenderness - Neuro: No focal motor or sensory deficit - Skin: No visible rashes Laboratory Data Labs 24H Laboratory Tests 2 01/02/17 23:47: Aspartate Amino Transf (AST/SGOT) 45H, Alanine Aminotransferase (ALT/SGPT) 22, Alkaline Phosphatase 325H, Total Bilirubin 0.9, Direct Bilirubin 0.3H, Albumin 3.5, Albumin/Globulin Ratio 0.83L, Anion Gap 12, White Blood Count 7.4, Red Blood Count 4.63, Hemoglobin 12.6, Hematocrit 38.2, Mean Corpuscular Volume 82.5 , Mean Corpuscular Hemoglobin 27.1, Mean Corpuscular Hemoglobin Concent 32.9, Red Cell Distribution Width 16.8H, Platelet Count 396, Neutrophils (%) (Auto) 82.7H, Lymphocytes (%) (Auto) 11.3L, Monocytes (%) (Auto) 2.9, Eosinophils (%) ( Auto) 1.7, Basophils (%) (Auto) 0.1, Neutrophils # (Auto) 6.2, Lymphocytes # ( Auto) 0.9L, Monocytes # (Auto) 0.2, Eosinophils # (Auto) 0.1, Basophils # (Auto ) 0.0, Calcium Level 9.2, Glomerular Filtration Rate > 60.0, Large Unclassified Cells # 0.1, Large Unclassified Cells % 1.3, Total Protein 7.7 CBC/BMP Laboratory Tests 01/02/17 23:47 Red Blood Count 4.63, Mean Corpuscular Volume 82.5, Mean Corpuscular Hemoglobin 27.1, Mean Corpuscular Hemoglobin Concent 32.9, Red Cell Distribution Width 16.8 H, Neutrophils (%) (Auto) 82.7 H, Lymphocytes (%) (Auto) 11.3 L, Monocytes (%) (Auto) 2.9, Eosinophils (%) (Auto) 1.7, Basophils (%) (Auto) 0.1, Neutrophils # (Auto) 6.2, Lymphocytes # (Auto) 0.9 L, Monocytes # (Auto) 0.2, Eosinophils # (Auto) 0.1, Basophils # (Auto) 0.0 Plan / VTE VTE Prophylaxis Ordered?: Yes Plan Plan Intractable nausea and vomiting likely 2/2 chemotherapy - Presented to ER with worsening symptoms since this afternoon - Had associated dizziness and light-headedness - Mild elevation in Cr from baseline - In ER she has received 2 Liters of NS - Will c/w IV fluid hydration with NS at 80cc/hr - Will control nausea with Zofran PRN Abdominal pain possibly 2/2 cholangiocarcinoma, possibly 2/2 vomiting, possibly 2/2 pneumonia - Reports that she has had similar pain like this in the past when she was diagnosed with cancer - Reports pain is continuous, she is unable to take her oral meds because of vomiting - Abdominal tenderness noted at epigastric area since vomiting started and RUQ - CT scan on 12/21: revealed extensive infiltrate neoplastic disease in the liver (larger than prior), intrarenal nephrolithiasis without hydronephrosis - CT chest 12/21: progressive pulmonary metastatic disease, coarse discoid atelectasis in RLL, RML and Lingula - Will repeat CT scan now to evaluate for any acute change - Will check lactic acid, blood cultures and respiratory panel - Will start protonix IV - Will control abdominal pain with Morphine PRN Cholangiocarcinoma - Appears to be stage 4 at this time - Initially diagnosed as Stage 2 on 08/2016 - CT chest 12/21: progressive pulmonary metastatic disease, coarse discoid atelectasis in RLL, RML and Lingula - CT scan on 12/21: revealed extensive infiltrate neoplastic disease in the liver (larger than prior), intrarenal nephrolithiasis without hydronephrosis - MRI 12/25: small vessel ischemic disease - Receives chemotherapy under the care of Dr. Bo DM2 - will start insulin sliding scale COPD - no evidence of exacerbation - will continue with home inhaled therapy Hx of nephrolithiasis and cholilithiasis Gastrointestinal prophylaxis - Will start protonix IV DVT prophylaxis - Will start LovenoJUSTINE Salguero MD Jan 03, 2017 04:32
[2017-01-03] MEDS ORDERED: METAL LOCK LOOP XX ONE (04:44)
[2017-01-03] MEDS ORDERED: ISOVUE-370 76% 100ML VIAL (Q9967) As Ordered ONE (04:53)
[2017-01-03] MEDS: MORPHINE 2 MG/ML 1ML SYRINGE IV PRN ×4 (05:03→21:54)
[2017-01-03 05:10] LABS: INR 1.1
--- NOTE | 2017-01-03 06:00 | REPUSA ---
CLINICAL HISTORY: Right lower lobe pneumonia. TECHNIQUE: Multiple axial CT images were obtained through chest with IV contrast material. MPR almendarez l and sagittal sequences were obtained. COMMENTS: Comparison is made to the prior exam performed on 12/21/2016. Increased bilateral basilar groundglass densities of the lungs. Increased bilateral basilar atelectatic pulmonary changes. Unchanged bronchitis. Unchanged bilateral pulmonary metastatic nodules. Right Port-A-Cath remains in good position. There are no pleural effusions. There is no evidence of hilar or mediastinal lymphadenopathy. The hea rt and great vessels are within normal limits. The bony structures are free of lytic or blastic lesions. Multilevel degenerative changes are seen in volving the thoracic spine. Scattered calcifications are seen involving the aorta and visualized major branches compatible with a therosclerosis. IMPRESSION: Increased bilateral basilar groundglass densities of the lungs. Increased bilateral basilar atelectatic pulmonary changes. Unchanged bronchitis. Thank you for your kind referral of this patient.
--- NOTE | 2017-01-03 06:20 | REPUSA ---
CLINICAL HISTORY: Abdominal pain. TECHNIQUE: Multiple axial, sagittal and coronal CT images were obtained through the abdomen and pelvi s after administration of oral and intravenous contrast material. COMMENTS: Comparison is made to the prior exam performed on 12/21/2016. Unchanged hepatomegaly. Unchanged multiple hypodense hepatic lesions suggestive of infiltrative liver disease. Mild increase in constipation. Mild increase in the diffuse thickening of the wall of the gallbladder. Unchanged cholelithiasis. Mild increase in perihepatic free fluid. Mild increase in the free fluid in the pelvis. Interval appearance of multiple ill-defined hypodense metastatic liver lesions. There is no intra or extrahepatic biliary ductal dilatation. The pancreas is of normal contour and at tenuation characteristics. There is no evidence of adrenal mass. Both kidneys demonstrate prompt and equal nephrograms. The kidneys are normal in size, shape and conf iguration. There is no evidence of renal or ureteral mass. No renal or ureteral calculi are identifie d. There is no hydroureter or hydronephrosis. No evidence for appendicitis. There is no bowel wall thickening. No evidence for small or large venkat l obstruction. There is no evidence of intrinsic or extrinsic bladder mass. Minimal right pleural effusion. The bony structures are free of lytic or blastic lesions. Multilevel degenerative changes are seen in volving the thoracolumbar spine. Scattered calcifications are seen involving the aorta and major branches compatible with atherosclero sis. IMPRESSION: Interval appearance of infiltrative splenic disease. Unchanged infiltrative liver disease. Mild increase in ascites. Mild increase in the diffuse thickening of the wall of the gallbladder. Unchanged cholelithiasis. Mild increase in constipation. Thank you for your kind referral of this patient.
[2017-01-03] MEDS: HumaLOG INSULIN (NovoLOG) PER UNIT SC SCH ×4 (07:15→21:00)
[2017-01-03 08:00] VITALS: BP 144/69
[2017-01-03] MEDS: PARoxetine 10MG TABLET PO SCH (08:37)
[2017-01-03] MEDS: PANTOPRAZOLE 40MG INJ (PROTONIX) (C9113) IV SCH (08:37)
[2017-01-03] MEDS: ENOXAPARIN 40 MG/0.4 ML SYRINGE (J1650) SC SCH (08:37)
--- NOTE | 2017-01-03 11:32 | IPN ---
DATE: 01/03/2017 SUBJECTIVE: Patient seen and examined in the room today. The patient stated her nausea and vomiting is improving, however, the patient still has pleuritic pain right lateral chest worsening with inspiration. Denies any cough or sputum production. Denies any wheezes. Denies any fevers. OBJECTIVE: VITAL SIGNS: Temperature 97.5, pulse 79, respirations 18, blood pressure 144/69, pulse oximetry 97% in room air. GENERAL: No signs of acute distress. Alert and oriented times three. HEENT: Normocephalic, atraumatic. Extraocular motors grossly intact. CARDIOVASCULAR: Positive S1 and S2. Regular rate. LUNGS: Clear to auscultation bilaterally. ABDOMEN: Soft, nontender, nondistended. Obese. Bowel sounds present. EXTREMITIES: No edema. No signs of cyanosis. LABORATORIES: WBC 7.4, hemoglobin 12.6, hematocrit 38.2, platelet count 396. Sodium 135, potassium 4, chloride 95, carbon dioxide 28, BUN 22, creatinine is 0.81, GFR greater than 60, fasting glucose 108, lactic acid 1, calcium 9.2, total bilirubin 0.9, direct bilirubin 0.3, AST 45, ALT 22, alkaline phosphatase 325, total protein 7.7, albumin 3.5. PT is 14.3, INR is 12.1. Blood cultures pending times two sets. ASSESSMENT/PLAN: 1. Right sided pleuritic pain. I went to radiology and reviewed the CT of the chest and abdomen with Dr. Mckeon. From imaging, there is a low suspicion for PE. There is no pneumonia. However, the patient's liver metastasis has enlarged and is pushing on her diaphragm. There are also increased number of bilateral pulmonary nodules and the size and number have been increasing in the past few months. 2. Cholangiocarcinoma. The patient has never had a PET scan performed. Many were scheduled in the past, however due to , the patient did not have a PET scan done. Now with seeing multiple nodule in the bilateral lung, I will try to contact the patient's oncologist, Dr. Bo. The patient's cholangiocarcinoma was diagnosed in August 2016. The patient started chemotherapy in late September. 3. Intractable nausea and vomiting, possibly due to her chemotherapy. The patient had similar symptoms in early October and at that time, the patient was actually hospitalized in the hospital from November 02 to November 03. Symptoms usually resolve with supportive treatment. Currently, the patient has IV fluid. The patient has Zofran ordered. 4. Diabetes on sliding scale. 5. Chronic obstructive pulmonary disease (COPD). No evidence of exacerbation at this moment. 6. History of nephrolithiasis. 7. History of cholelithiasis. 8. Deep vein thrombosis (DVT) prophylaxis. On Lovenox.
[2017-01-03 12:00] VITALS: BP 144/66
[2017-01-03 15:39] VITALS: BP 160/80
[2017-01-03] MEDS: ONDANSETRON 4MG/2ML VIAL (J2405) IV PRN ×2 (15:42→21:53)
[2017-01-03 22:00] VITALS: BP 150/70
[2017-01-04 06:00] VITALS: BP 159/76
[2017-01-04 06:07] LABS: BASO % 0.3 % (0.0-1.0); EOS # 0.1 K/mm3 (0.0-0.50); EOS % 1.4 % (0.0-3.0); LARGE UNSTAINED CELL # 0.1 K/mm3 (0.0-0.4); LARGE UNSTAINED CELL % 1.9 % (0.0-4.0); LYMPH # 0.5 K/mm3 (1.5-4.5); LYMPH % 12.9 % (24.0-44.0); MEAN CORPUSCULAR HEMOGLOBIN 26.7 pg (27.0-33.0); MEAN CORPUSCULAR HGB CONC 32.6 g/dl (32.0-36.5); MEAN CORPUSCULAR VOLUME 81.9 fl (80.0-96.0); MONO # 0.1 K/mm3 (0.0-0.8); MONO % 2.5 % (0.0-5.0); NEUTROPHILS # 3.2 K/mm3 (1.8-7.7); PLATELET COUNT, AUTOMATED 329 k/mm3 (150-450); RED CELL DISTRIBUTION WIDTH 16.6 % (11.5-14.5); WHITE BLOOD COUNT 3.9 K/mm3 (4.0-10.0)
[2017-01-04 06:19] LABS: ALBUMIN 2.6 GM/DL (3.2-5.2); ALBUMIN/GLOBULIN RATIO 0.76 (1.00-1.93); ALKALINE PHOSPHATASE 222 U/L (45-117); ALT/SGPT 13 U/L (12-78); ANION GAP 10 MEQ/L (8-16); AST/SGOT 27 U/L (15-37); BILIRUBIN,TOTAL 0.7 MG/DL (0.2-1.0); BLOOD UREA NITROGEN 15 MG/DL (7-18); CALCIUM LEVEL 8.2 MG/DL (8.8-10.2); CARBON DIOXIDE LEVEL 24 MEQ/L (21-32); CHLORIDE LEVEL 101 MEQ/L (98-107); CREATININE FOR GFR 0.65 MG/DL (0.55-1.02); GLOMERULAR FILTRATION RATE > 60.0 (>45); GLUCOSE, FASTING 95 MG/DL (80-110); POTASSIUM SERUM 4.3 MEQ/L (3.5-5.1); SODIUM LEVEL 135 MEQ/L (136-145)
[2017-01-04] MEDS: HumaLOG INSULIN (NovoLOG) PER UNIT SC SCH ×4 (06:58→21:14)
[2017-01-04] MEDS: PARoxetine 10MG TABLET PO SCH (08:29)
[2017-01-04] MEDS: PANTOPRAZOLE 40MG INJ (PROTONIX) (C9113) IV SCH (08:29)
[2017-01-04] MEDS: ENOXAPARIN 40 MG/0.4 ML SYRINGE (J1650) SC SCH (08:29)
[2017-01-04] MEDS: MAGNESIUM OXIDE 400 MG TAB (MAG-OX) PO SCH ×2 (09:01→21:24)
[2017-01-04] MEDS: MAG SULF 1GM/100ML (MAG RUN) 1 GM in APPROPRIATE DILUENT 1 EA IV SCH ×2 (09:01→10:59)
[2017-01-04] MEDS ORDERED: ISOVUE-370 76% 100ML VIAL (Q9967) As Ordered ONE (09:58)
--- NOTE | 2017-01-04 10:42 | REP ---
Clinical: Acute pleuritic chest pain. Technique: Axial contrast enhanced images from the thoracic inlet to the upper abdomen using 100 ml Isovue 370 intravenous contrast material with coronal and sagittal re-formations. Comparison: Chest CT dated 01/03/2017. Findings: Satisfactory enhancement of the pulmonary vasculature is achieved and no filling defects are identified to suggest pulmonary embolus. Thoracic aorta is normal caliber without aneurysm or dissection. Heart and pericardium are normal. Lung saleem demonstrate right middle lobe, lingular, and bibasilar atelectasis and small pleural reactions which have slightly increased in severity compared to prior examination. Scattered soft tissue nodules are appreciated and consistent with metastatic disease. No pneumothorax. No significant obvious adenopathy. [id number] in the right anterior chest wall extends into the SVC. Surrounding musculoskeletal structures without focal osseous abnormality. Limited evaluation of the upper abdomen demonstrates extensive hepatic metastatic disease. Impression: No evidence for pulmonary embolus. Mildly increased basilar atelectasis and small pleural effusions. Scattered pulmonary metastatic foci. Extensive hepatic neoplastic/metastatic disease. Signed by Junior Taylor MD 01/04/2017 10:34 A
--- NOTE | 2017-01-04 10:55 | REP ---
Clinical: Pleuritic chest pain . Technique: Juarez scale and color Doppler evaluation using linear high frequency transducer. Findings: Ultrasound examination of the right and left lower extremity deep venous structures from the common femoral vein to the popliteal vein demonstrates normal compressibility flow and wave patterns in response to respiration and augmentation. There is no evidence for deep venous thrombosis. Atherosclerotic changes to the visualized arterial structures noted. Impression: No evidence for deep venous thrombosis of the bilateral lower extremity. Signed by Junior Taylor MD 01/04/2017 10:47 A
[2017-01-04] MEDS: MORPHINE 2 MG/ML 1ML SYRINGE IV PRN ×2 (11:21→22:49)
[2017-01-04 14:00] VITALS: BP 129/65
[2017-01-04] MEDS: PERCOCET 5MG/325MG TAB PO PRN ×2 (15:02→21:24)
--- NOTE | 2017-01-04 16:57 | IPN ---
DATE: 01/04/2017 SUBJECTIVE: The patient is seen and examined in the room today. The patient still complains about the pleuritic chest pain, mainly on the left lateral inferior chest. She does not require any oxygen support. No fever or chills. I discussed with the patient that her CT of the chest and abdomen was reviewed with another radiologist for a second opinion. The patient does have multiple lung nodules and has been increasing in size in the past few months. The patient was not aware of the finding initially, and the liver lesion may seem to have increased in size. All of the questions are answered. I also informed the patient that Dr. Bo is aware of the situation and her chemotherapy regimen will be discussed in detail after the patient is discharged. OBJECTIVE: VITAL SIGNS: Temperature is 98.9, pulse is 83, respirations 18, blood pressure is 159/76, pulse oximetry is 96% in room air. GENERAL: No sign of acute distress. Alert and oriented times three. HEENT: Normocephalic, atraumatic. Extraocular motor grossly intact. CARDIOVASCULAR: Positive S1, S2, regular rate. LUNGS: Clear to auscultation bilaterally. ABDOMEN: Soft, nondistended. Bowel sounds present. EXTREMITIES: No edema, no sign of cyanosis. LABORATORY DATA: WBC is 3.9, hemoglobin 10.1, hematocrit 31.2, platelet count is 329. Sodium 135, potassium 4.3, chloride is 101, carbon dioxide 24, BUN 15, creatinine is 0.65, GFR greater than 60, fasting glucose 95, calcium is 8.2, magnesium 1. Total bilirubin 0.7, AST 27, ALT is 13, alkaline phosphatase is 222. Total protein 6. Albumin 2.6. ASSESSMENT AND PLAN: 1. Right-sided pleuritic pain. The patient does have pain during inspiration. The patient has significant cancer. The patient had a CT chest with contrast yesterday; therefore, the patient was not able to receive a CT angiogram. Therefore, CT angiogram was postponed until today, which result later came back negative for pulmonary embolism (PE). Lower extremity Doppler also showed no signs of deep vein thrombosis of the bilateral lower extremities. The patient's right pleuritic chest pain possibly due to her liver metastasis pushing against her diaphragm. 2. Cholangiocarcinoma. The patient never had a PET scan performed. Many were scheduled in the past; however, due to different reasons, the patient has never got a PET scan done. Now, we are seeing CT abdomen showed there are multiple ill-defined hypodense metastatic liver lesions. Repeat CT scan also showed there are multiple nodular lesions in the bilateral lung. Findings were discussed with the patient's oncologist, Dr. Bo, and the multiple bilateral lung nodules new finding. Initially the patient's cholangiocarcinoma was diagnosed in August 2016, and the patient has been starting chemotherapy since late September 2016. 3. Intractable nausea and vomiting most likely due to chemotherapy. Symptoms improved. The patient has Zofran. Since the patient started on chemotherapy, she stated she has intractable nausea, vomiting shortly after the chemotherapy. 4. Diabetes. On sliding scale, on consistent-carbohydrate diet. 5. Chronic obstructive pulmonary disease (COPD). No exacerbation at this moment. 6. History of nephrolithiasis. The patient has a history of cholelithiasis. 7. Deep vein thrombosis (DVT) prophylaxis. On Lovenox.
[2017-01-04 22:00] VITALS: BP_SYST 137; BP_SYST 160; BP_DIAS 69; BP_DIAS 74
[2017-01-04] MEDS: ONDANSETRON 4MG/2ML VIAL (J2405) IV PRN (22:02)
[2017-01-05 06:00] VITALS: BP 164/76
[2017-01-05] MEDS: HumaLOG INSULIN (NovoLOG) PER UNIT SC SCH ×2 (07:30→12:48)
[2017-01-05 08:40] LABS: ALBUMIN 2.8 GM/DL (3.2-5.2); ALBUMIN/GLOBULIN RATIO 0.82 (1.00-1.93); ALKALINE PHOSPHATASE 217 U/L (45-117); ALT/SGPT 11 U/L (12-78); ANION GAP 8 MEQ/L (8-16); AST/SGOT 24 U/L (15-37); BILIRUBIN,TOTAL 0.5 MG/DL (0.2-1.0); BLOOD UREA NITROGEN 14 MG/DL (7-18); CALCIUM LEVEL 8.2 MG/DL (8.8-10.2); CARBON DIOXIDE LEVEL 28 MEQ/L (21-32); CHLORIDE LEVEL 101 MEQ/L (98-107); CREATININE FOR GFR 0.69 MG/DL (0.55-1.02); GLOMERULAR FILTRATION RATE > 60.0 (>45); GLUCOSE, FASTING 96 MG/DL (80-110); MAGNESIUM LEVEL 1.5 MG/DL (1.8-2.4); POTASSIUM SERUM 4.2 MEQ/L (3.5-5.1); SODIUM LEVEL 137 MEQ/L (136-145); TOTAL PROTEIN 6.2 GM/DL (6.4-8.2)
[2017-01-05] MEDS ORDERED: MIRALAX *UNIT DOSE* 17GM PACKET PO SCH (09:00)
[2017-01-05] MEDS: PANTOPRAZOLE 40MG INJ (PROTONIX) (C9113) IV SCH (09:26)
[2017-01-05] MEDS: PARoxetine 10MG TABLET PO SCH (09:26)
[2017-01-05] MEDS: ENOXAPARIN 40 MG/0.4 ML SYRINGE (J1650) SC SCH (09:26)
[2017-01-05] MEDS: MAGNESIUM OXIDE 400 MG TAB (MAG-OX) PO SCH (09:26)
[2017-01-05] MEDS: PERCOCET 5MG/325MG TAB PO PRN (09:28)
[2017-01-05 09:44] LABS: BASO % 0.7 % (0.0-1.0); EOS % 1.3 % (0.0-3.0); LARGE UNSTAINED CELL # 0.1 K/mm3 (0.0-0.4); LARGE UNSTAINED CELL % 2.3 % (0.0-4.0); LYMPH # 0.7 K/mm3 (1.5-4.5); LYMPH % 29.9 % (24.0-44.0); MEAN CORPUSCULAR HEMOGLOBIN 27.5 pg (27.0-33.0); MEAN CORPUSCULAR HGB CONC 33.8 g/dl (32.0-36.5); MEAN CORPUSCULAR VOLUME 81.3 fl (80.0-96.0); MONO # 0.1 K/mm3 (0.0-0.8); MONO % 5.9 % (0.0-5.0); NEUTROPHILS # 1.3 K/mm3 (1.8-7.7); NEUTROPHILS % 59.9 % (36.0-66.0); PLATELET COUNT, AUTOMATED 316 k/mm3 (150-450); RED CELL DISTRIBUTION WIDTH 16.3 % (11.5-14.5); WHITE BLOOD COUNT 2.3 K/mm3 (4.0-10.0)
[2017-01-05] MEDS ORDERED: MAG400TA PO (10:22)
[2017-01-05] MEDS ORDERED: DULC5TAB PO (10:23)
[2017-01-05] MEDS ORDERED: PEG1POW PO (10:23)
--- NOTE | 2017-01-05 16:56 | DSES ---
DATE OF ADMISSION: 01/03/2017 DATE OF DISCHARGE: 01/05/2017 PRIMARY DISCHARGE DIAGNOSES: 1. History of cholangiocarcinoma. 2. Intractable nausea and vomiting secondary to chemotherapy. 3. Pleuritic chest pain. CT chest negative for pulmonary embolism (PE) with scattered pulmonary metastatic focus and hepatic neoplastic metastatic disease. 4. Leukopenia. 5. Hemodilutional anemia. 6. Electrolyte abnormalities with low magnesium. DISCHARGE MEDICATIONS: - Dulcolax 5 mg twice a day as needed for constipation - magnesium oxide 800 mg twice a day - MiraLAX two packets daily - Percocet 10/325 one tablet every six hours as needed for pain - Paxil 10 mg as needed - albuterol two puffs every four hours as needed HOSPITAL COURSE: A 61-year-old female who presented to the emergency room on 01/03/2017 complaining of right-sided pleuritic chest pain, dizziness, nausea and vomiting. The patient was diagnosed with stage IV cholangiocarcinoma, started chemotherapy in August 2016 with a history of type 2 diabetes, chronic obstructive pulmonary disease (COPD), nephrolithiasis, cholelithiasis. She had also complained of lightheadedness and dizziness after four episodes of vomiting and a fever of 101 at home. The patient was given intravenous fluids, normal saline 80 mL an hour. Nausea was controlled with intravenous Zofran. The patient's vomiting was most likely secondary to cholangiocarcinoma. CT chest showed progressive metastatic disease and discoid atelectasis in the right lower lobe, middle lobe, and lingula. CT abdomen showed neoplastic disease infiltrative in the liver larger than prior. No hydronephrosis. MRI showed small vessel ischemic disease on 12/25/2016. Microbiology was negative blood cultures times two sets. She remained afebrile throughout the admission. Her pain was better controlled with Percocet and IV morphine as needed. Due to metastatic pulmonary findings, the patient was encouraged to followup with her medical oncologist for a PET scan as outpatient and to continue with chemotherapy. The patient had remained afebrile on no antibiotics. LABORATORY DATA ON DISCHARGE: White count 2.3, hemoglobin 9.8, hematocrit 28, platelet count 316. Sodium 137, potassium 4.2, chloride 101, bicarbonate 28, BUN 14, creatinine 0.69 , glucose 96, magnesium 1.5, calcium 8.2, AST 24, ALT 11, alkaline phosphatase 217. IMAGING STUDIES: CT chest 01/04/2017: No evidence of PE, basilar atelectasis and small pleural effusion, scattered pulmonary metastatic focus, extensive hepatic neoplastic metastatic disease. Vascular ultrasound lower extremity: No evidence of DVT. CT abdomen and pelvis: Interval appearance of infiltrative splenic disease, unchanged infiltrative liver disease, mild increase in ascites, unchanged cholelithiasis, mild increase in diffuse thickening of the wall of the gallbladder, and mild increase in constipation. TIME SPENT ON DISCHARGE: 30 minutes. MTDD
--- NOTE | 2017-01-05 22:13 | ECGEPIP ---
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
== END 2017-01-05 13:51 | disposition home or self-care (01) | DRG 249 ==
LOC: M ED 23:43 → M ED INP 01-03 03:09 → M MSPAV 01-03 15:30
PROVIDERS: ADMIT Internal Medicine; ATTEND General Practice
DX: R11.2 Nausea with vomiting, unspecified (principal); C22.1 Intrahepatic bile duct carcinoma; C78.01 Secondary malignant neoplasm of right lung; E83.42 Hypomagnesemia; E11.9 Type 2 diabetes mellitus without complications; D64.9 Anemia, unspecified; T45.1X5A Adverse effect of antineoplastic and immunosuppressive drugs, initial encounter; Z79.4 Long term (current) use of insulin; Z88.6 Allergy status to analgesic agent; Z91.040 Latex allergy status; Z88.0 Allergy status to penicillin; Z91.048 Other nonmedicinal substance allergy status; K21.9 Gastro-esophageal reflux disease without esophagitis; D72.819 Decreased white blood cell count, unspecified; C78.7 Secondary malignant neoplasm of liver and intrahepatic bile duct

== ENCOUNTER → 2017-01-07 | Outpatient (REF) | payer BC ==
[~2017-01-07] MED LIST changes: +DULC5TAB PO; +MAG400TA PO; +PEG1POW PO
== END ==
LOC: M LAB REF 12:46
PROVIDERS: ATTEND Internal Medicine Medical Oncology
DX: C22.1 Intrahepatic bile duct carcinoma (principal)

== ENCOUNTER → 2017-02-01 | Outpatient (REF) | payer BC | LOC: M LAB REF 12:55 | PROVIDERS: ATTEND Internal Medicine Medical Oncology | DX: C22.1 Intrahepatic bile duct carcinoma (principal) ==

== ENCOUNTER 2017-02-17 08:45 | Emergency (ER) | payer BC ==
[~2017-02-17] VITALS: Ht 160 cm; Wt 64.0 kg
[2017-02-17] MEDS ORDERED: SODIUM CHLORIDE 0.9% 1000 ML IV ONE (09:45)
[2017-02-17 09:49] LABS: BASO % 0.3 % (0.0-1.0); LARGE UNSTAINED CELL # 0.1 K/mm3 (0.0-0.4); LARGE UNSTAINED CELL % 3.5 % (0.0-4.0); LYMPH # 0.8 K/mm3 (1.5-4.5); LYMPH % 18.3 % (24.0-44.0); MEAN CORPUSCULAR HEMOGLOBIN 28.9 pg (27.0-33.0); MEAN CORPUSCULAR HGB CONC 33.6 g/dl (32.0-36.5); MONO # 0.3 K/mm3 (0.0-0.8); MONO % 9.5 % (0.0-5.0); NEUTROPHILS # 2.3 K/mm3 (1.8-7.7); NEUTROPHILS % 67.3 % (36.0-66.0); PLATELET COUNT, AUTOMATED 102 k/mm3 (150-450); RED CELL DISTRIBUTION WIDTH 18.4 % (11.5-14.5); WHITE BLOOD COUNT 3.4 K/mm3 (4.0-10.0)
[2017-02-17] MEDS ORDERED: MORPHINE 2 MG/ML 1ML SYRINGE IV ONE (10:00)
[2017-02-17] MEDS ORDERED: ONDANSETRON 4MG/2ML VIAL (J2405) IV ONE (10:00)
[2017-02-17 10:02] LABS: ALBUMIN 2.8 GM/DL (3.2-5.2); ALBUMIN/GLOBULIN RATIO 0.67 (1.00-1.93); ALKALINE PHOSPHATASE 448 U/L (45-117); ALT/SGPT 22 U/L (12-78); ANION GAP 11 MEQ/L (8-16); AST/SGOT 53 U/L (15-37); BILIRUBIN,DIRECT 0.6 MG/DL (0.0-0.2); BILIRUBIN,TOTAL 1.1 MG/DL (0.2-1.0); BLOOD UREA NITROGEN 22 MG/DL (7-18); CALCIUM LEVEL 8.5 MG/DL (8.8-10.2); CARBON DIOXIDE LEVEL 24 MEQ/L (21-32); CHLORIDE LEVEL 99 MEQ/L (98-107); CREATININE FOR GFR 0.94 MG/DL (0.55-1.02); GLOMERULAR FILTRATION RATE > 60.0 (>45); GLUCOSE, FASTING 191 MG/DL (80-110); POTASSIUM SERUM 3.7 MEQ/L (3.5-5.1); SODIUM LEVEL 134 MEQ/L (136-145)
--- NOTE | 2017-02-17 10:02 | REP ---
Chest one-view HISTORY: Cough Comparison: 12/04/2016 Linear densities are present in the lower lobes consistent with scar. The heart is normal in size. The pulmonary vasculature is normal in appearance. A catheter is present in the superior vena cava. Impression: Bibasilar scarring Signed by Octavio Baez MD 02/17/2017 09:54 A
[2017-02-17] MEDS ORDERED: ISOVUE-370 76% 100ML VIAL (Q9967) As Ordered ONE (12:44)
[2017-02-17 13:21] VITALS: BP 154/67
--- NOTE | 2017-02-17 14:02 | REP ---
CT ANGIOGRAM OF THE CHEST: TECHNIQUE: Axial contrast enhanced images from the thoracic inlet to the upper abdomen using 100 mL Isovue 370 intravenous contrast material with multiplanar reformations. There are multiple bilateral pulmonary nodules which are stable compared to the prior exam of 01/04/2017. Infiltrates and atelectasis in the lower lobes on that prior exam have essentially resolved. There are bilateral fibrotic changes again seen in the lower lung zones. There is no CT evidence of pulmonary embolism or aortic dissection. Subcarinal lymph nodes are stable. No new adenopathy is seen. There is no pleural or pericardial effusion. There are degenerative changes of the spine. IMPRESSION: No evidence of pulmonary embolism. Stable bilateral pulmonary nodules. Previously noted basilar infiltrates appear to have resolved. Signed by Huber Juarez MD 02/17/2017 04:47 P
--- NOTE | 2017-02-17 14:12 | REP ---
CT ABDOMEN AND PELVIS WITH CONTRAST: TECHNIQUE: Axial contrast enhanced images from the lung bases to the pubic symphysis using 100 mL Isovue 370 intravenous contrast material with multiplanar reformations. Extensive neoplastic disease in the liver is essentially unchanged. Gallstone is again seen in the gallbladder. There is no evidence for biliary dilatation. Spleen, adrenals, and pancreas appear unremarkable and unchanged. There is a right renal cyst again seen. No significant adenopathy is seen in the abdomen or pelvis. There is no free air. There is mild free fluid in the abdomen and pelvis. The amount of free fluid has slightly increased since the prior study of 01/03/2017. I see no bowel wall thickening. No pelvic mass is seen. The urinary bladder is mildly distended and grossly unremarkable. IMPRESSION: Extensive neoplastic disease of the liver appears essentially unchanged. Gallstone again noted. No biliary dilatation. Mildly increased free fluid in the pelvis. Mild perihepatic fluid essentially unchanged. Signed by Huber Juarez MD 02/17/2017 04:48 P
[2017-02-17] MEDS ORDERED: CIPROFLOXACIN 500 MG TAB PO ONE (14:15)
[2017-02-17] MEDS ORDERED: CIPR500T89 PO (14:17)
--- NOTE | 2017-02-17 14:44 | ECGEPIP ---
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
== END 2017-02-17 14:59 | disposition home or self-care (01) ==
LOC: M ED 10:28
DX: R50.9 Fever, unspecified (principal); R00.0 Tachycardia, unspecified; C22.1 Intrahepatic bile duct carcinoma; M54.9 Dorsalgia, unspecified; Z79.4 Long term (current) use of insulin
CPT/HCPCS: 36415; 71010; 71275; 74177; 80048; 80076; 81001; 82550; 82553; 83605; 83880; 85025; 87040; 87088; 87804; 93005; 93041; 94760; 96374; 96375; 99285; J2405; Q9967

== ENCOUNTER 2017-02-21 03:35 | Emergency (ER) | payer BC ==
[~2017-02-21] VITALS: Ht 160 cm; Wt 64.0 kg
[~2017-02-21 03:35] MED LIST changes: +CIPR500T89 PO
[2017-02-21] MEDS ORDERED: KETOROLAC 30 MG/ML VIAL (J1885) IV ONE (04:45)
[2017-02-21] MEDS ORDERED: ONDANSETRON 4MG/2ML VIAL (J2405) IV ONE (04:45)
[2017-02-21 04:54] LABS: ANION GAP 9 MEQ/L (8-16); BLOOD UREA NITROGEN 14 MG/DL (7-18); CALCIUM LEVEL 7.6 MG/DL (8.8-10.2); CARBON DIOXIDE LEVEL 26 MEQ/L (21-32); CHLORIDE LEVEL 100 MEQ/L (98-107); CREATININE FOR GFR 0.81 MG/DL (0.55-1.02); GLOMERULAR FILTRATION RATE > 60.0 (>45); GLUCOSE, FASTING 233 MG/DL (80-110); SODIUM LEVEL 135 MEQ/L (136-145)
[2017-02-21 04:56] LABS: BASO % 0.2 % (0.0-1.0); EOS % 0.5 % (0.0-3.0); LARGE UNSTAINED CELL # 0.1 K/mm3 (0.0-0.4); LARGE UNSTAINED CELL % 3.2 % (0.0-4.0); LYMPH # 0.5 K/mm3 (1.5-4.5); LYMPH % 23.5 % (24.0-44.0); MEAN CORPUSCULAR HEMOGLOBIN 28.4 pg (27.0-33.0); MEAN CORPUSCULAR HGB CONC 32.9 g/dl (32.0-36.5); MEAN CORPUSCULAR VOLUME 86.3 fl (80.0-96.0); MONO # 0.1 K/mm3 (0.0-0.8); MONO % 3.4 % (0.0-5.0); NEUTROPHILS # 1.3 K/mm3 (1.8-7.7); NEUTROPHILS % 69.3 % (36.0-66.0); RED CELL DISTRIBUTION WIDTH 17.6 % (11.5-14.5)
[2017-02-21 05:24] LABS: PLATELET COUNT, AUTOMATED 48 k/mm3 (150-450); WHITE BLOOD COUNT 1.8 K/mm3 (4.0-10.0)
[2017-02-21 07:30] VITALS: BP 125/60
[2017-02-21] MEDS ORDERED: SODIUM CHLORIDE 0.9% INJ 10 ML SYR IV PRN ×2 (07:30→07:45)
[2017-02-21] MEDS ORDERED: SODIUM CHLORIDE 0.9% INJ 10 ML SYR IV SCH (09:00)
--- NOTE | 2017-02-21 10:25 | REP ---
CHEST, TWO VIEWS: HISTORY: Chest pain. COMPARISON: 02/17/2017 Curvilinear opacities are seen in the lung bases, status quo. This is likely consistent with either scarring or chronic subsegmental atelectatic change. There are no acute patchy opacities or pleural effusions. Cardiomediastinal silhouette is unchanged. The heart may be mildly enlarged. The osseous structures are stable and intact. The tip of a central venous catheter is seen in the superior vena cava, unchanged. IMPRESSION: No acute cardiopulmonary disease. Findings as described above. Signed by All Zendejas DO 02/21/2017 01:31 P
--- NOTE | 2017-02-21 14:48 | ECGEPIP ---
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
== END 2017-02-21 07:40 | disposition home or self-care (01) ==
LOC: M ED 05:12
DX: D61.818 Other pancytopenia (principal); R07.89 Other chest pain; C22.1 Intrahepatic bile duct carcinoma; Z79.4 Long term (current) use of insulin; Z88.0 Allergy status to penicillin; Z88.6 Allergy status to analgesic agent; Z88.8 Allergy status to other drugs, medicaments and biological substances; Z91.040 Latex allergy status; Z91.09 Other allergy status, other than to drugs and biological substances
CPT/HCPCS: 36415; 71020; 80048; 82550; 82553; 85025; 93005; 93041; 94760; 96374; 96375; 96376; 99285; J1885; J2405

== ENCOUNTER 2017-02-26 10:24 | Outpatient (CLI) | payer BC ==
[~2017-02-26 10:24] MED LIST changes: +ACETAMINOPHEN TAB 650MG DOSE (2X325MG) PO SCH; +diphenhydrAMINE 25 MG CAP PO SCH
[2017-02-26 10:35] VITALS: BP 160/70
[2017-02-26] MEDS ORDERED: SODIUM CHLORIDE 0.9% INJ 10 ML SYR IV PRN (11:00)
[2017-02-27] MEDS ORDERED: SODIUM CHLORIDE 0.9% INJ 10 ML SYR IV SCH (09:00)
== END 2017-02-26 17:31 | disposition home or self-care (01) ==
LOC: M OPCLI4PV 10:24 → M MSPAV 10:26 → M OPCLI4PV 17:31
PROVIDERS: ATTEND Internal Medicine Medical Oncology
DX: D64.9 Anemia, unspecified (principal); C22.1 Intrahepatic bile duct carcinoma; Z79.891 Long term (current) use of opiate analgesic; Z79.899 Other long term (current) drug therapy; Z79.4 Long term (current) use of insulin; Z79.2 Long term (current) use of antibiotics; Z88.6 Allergy status to analgesic agent; Z91.040 Latex allergy status
CPT/HCPCS: 36430; 86850; 86900; 86901; 86920; P9016

== ENCOUNTER → 2017-03-01 | Outpatient (REF) | payer BC ==
[~2017-03-01] MED LIST changes: -ACETAMINOPHEN TAB 650MG DOSE (2X325MG) PO SCH; -diphenhydrAMINE 25 MG CAP PO SCH
== END ==
LOC: M LAB REF 12:51
PROVIDERS: ATTEND Internal Medicine Medical Oncology
DX: C22.1 Intrahepatic bile duct carcinoma (principal)

== ENCOUNTER → 2017-03-11 | Outpatient (CLI) | payer BC ==
[~2017-03-11] MED LIST changes: +ATIV1TAB7 PO; +KEFL500C7 PO
--- NOTE | 2017-03-11 09:22 | REP ---
Clinical: Cholelithiasis. Technique: Real time amaya scale ultrasound examination using curved array transducer. Findings: The liver is diffusely heterogeneous and demonstrates multiple mass lesions with the largest discrete lesion measuring approximately 2.8 cm diameter. Trace fluid is identified in Morison's pouch. The pancreas is incompletely evaluated due to interposed bowel gas. The gallbladder demonstrates diffuse wall thickening to 5 mm along with multiple stones and presumed tumor effective sludge. There is no evidence for biliary ductal dilatation and the common bile duct measures 4.5 mm diameter. Right kidney is normal in reniform shape and measures 9.7 x 4.6 x 5.5 cm. A small right pleural effusion cannot be excluded. Impression: 1. Heterogeneous liver with multiple mass lesions concerning for malignancy. 2. Gallbladder wall thickening and stones with suspected tumefactive sludge and no evidence for biliary ductal dilatation. 3. Trace fluid in Morison's pouch as well as small right pleural effusion suggested. Signed by Junior Taylor MD 03/11/2017 09:14 A
== END ==
LOC: M RAD 08:26
PROVIDERS: ATTEND Internal Medicine Medical Oncology
DX: K83.8 Other specified diseases of biliary tract (principal); K76.9 Liver disease, unspecified; K80.20 Calculus of gallbladder without cholecystitis without obstruction

== ENCOUNTER 2017-03-12 05:24 | Emergency (ER) | payer BC ==
[~2017-03-12] VITALS: Ht 160 cm; Wt 71.7 kg
[~2017-03-12 05:24] MED LIST changes: -ATIV1TAB7 PO; -KEFL500C7 PO
[2017-03-12] MEDS ORDERED: KEFL500C7 PO (05:46)
[2017-03-12] MEDS ORDERED: ATIV1TAB7 PO (05:49)
[2017-03-12] MEDS ORDERED: MORPHINE 4 MG/ML 1ML SYRINGE IV ONE ×2 (06:30→09:00)
[2017-03-12 08:39] LABS: MEAN CORPUSCULAR HEMOGLOBIN 30.2 pg (27.0-33.0); MEAN CORPUSCULAR HGB CONC 31.9 g/dl (32.0-36.5); MEAN CORPUSCULAR VOLUME 94.5 fl (80.0-96.0); PLATELET COUNT, AUTOMATED 140 k/mm3 (150-450); RED CELL DISTRIBUTION WIDTH 20.1 % (11.5-14.5); WHITE BLOOD COUNT 10.8 K/mm3 (4.0-10.0)
[2017-03-12 08:53] LABS: ALBUMIN 2.2 GM/DL (3.2-5.2); ALBUMIN/GLOBULIN RATIO 0.54 (1.00-1.93); BILIRUBIN,TOTAL 9.3 MG/DL (0.2-1.0); TOTAL PROTEIN 6.3 GM/DL (6.4-8.2)
[2017-03-12 08:57] LABS: ANISOCYTOSIS 1+; BANDS 4 % (< 11); EOSINOPHILS 2 % (0-5)
--- NOTE | 2017-03-12 08:58 | REP ---
LEFT SHOULDER SERIES: Three views. HISTORY: Trauma. FINDINGS: The left glenohumeral and acromioclavicular joints are normally aligned. There is a slightly impacted fracture of the surgical neck of the left humerus. This is fairly subtle radiographically. Clavicle is intact. No subluxation is seen. IMPRESSION: Nondisplaced surgical neck fracture left proximal humerus with slight impaction. Signed by Vasiliy Mckeon MD 03/12/2017 11:18 A
--- NOTE | 2017-03-12 08:58 | REP ---
LEFT HUMERUS: Two views. HISTORY: Trauma. FINDINGS: Two views of the left humerus shows no evidence of fracture, subluxation or dislocation. IMPRESSION: No fracture seen. Signed by Vasiliy Mckeon MD 03/12/2017 11:18 A
[2017-03-12] MEDS ORDERED: ONDANSETRON 4MG/2ML VIAL (J2405) IV ONE (09:00)
--- NOTE | 2017-03-12 10:06 | REP ---
Clinical: Trauma. Technique: AP, lateral, bilateral oblique views left wrist . Findings: The osseous structures and joint spaces demonstrate age-related degenerative changes. There is no evidence for acute fracture or dislocation. Surrounding soft tissues are unremarkable. No subcutaneous emphysema or radiodense foreign body. Impression: Age related arthritic changes. No acute fracture or dislocation. Signed by Junior Taylor MD 03/12/2017 09:58 A
--- NOTE | 2017-03-12 10:07 | REP ---
Clinical: Trauma. Technique: AP, lateral left forearm. Findings: The osseous structures and joint spaces are intact and normal for age with arthritic degenerative changes suggested at the wrist. There is no evidence for acute fracture or dislocation. Surrounding soft tissues are unremarkable. No subcutaneous emphysema or radiodense foreign body. Impression: Arthritic changes at the wrist and distal forearm. No acute fracture dislocation . Signed by Junior Taylor MD 03/12/2017 09:58 A
--- NOTE | 2017-03-12 10:09 | REP ---
Clinical: Fever and trauma . Comparison: 02/21/2017 . Technique: PA and lateral. Findings: Poor expiratory effort limits evaluation. Otkaot-T-Lchi identified with tip in the SVC. The cardiac silhouette appears normal/stable. Linear acute on chronic bilateral fibro atelectatic changes are suggested and should be correlated clinically. Lateral view raises the possibility of small right pleural effusion. No pneumothorax. Skeletal structures are intact. Impression: 1. Linear acute on chronic bilateral fibro atelectatic changes. 2. Suspected small right pleural effusion and passive atelectasis. Signed by Junior Taylor MD 03/12/2017 10:00 A
[2017-03-12 11:05] LABS: MAGNESIUM LEVEL 1.4 MG/DL (1.8-2.4)
[2017-03-12 11:39] LABS: MICROSCOPIC INDICATED? MAN YES (NO)
[2017-03-12 11:44] LABS: CALCIUM LEVEL 8.7 MG/DL (8.8-10.2); CREATININE FOR GFR 1.01 MG/DL (0.55-1.02); GLOMERULAR FILTRATION RATE 59.1 (>45); POTASSIUM SERUM 3.4 MEQ/L (3.5-5.1)
[2017-03-12 11:59] LABS: WBC, URINE 15-20 /hpf (0-3)
[2017-03-12 12:00] LABS: RBC, URINE 0-1 /hpf (0-3); SQUAMOUS EPITHELIAL CELL URINE MOD AMOUNT /hpf (SMALL AMT)
[2017-03-12 12:01] LABS: BACTERIA, URINE SMALL AMOUNT
[2017-03-12 12:02] LABS: HYALINE CAST, URINE NONE SEEN /lpf (0-1); MICROSCOPIC EXAM PERFORMED
[2017-03-12 12:45] VITALS: BP 174/77
[2017-03-12] MEDS ORDERED: SODIUM CHLORIDE 0.9% INJ 10 ML SYR IV PRN (12:45)
[2017-03-13] MEDS ORDERED: SODIUM CHLORIDE 0.9% INJ 10 ML SYR IV SCH (09:00)
== END 2017-03-12 12:59 | disposition home or self-care (01) ==
LOC: M ED 06:47
DX: S42.212A Unspecified displaced fracture of surgical neck of left humerus, initial encounter for closed fracture (principal); W19.XXXA Unspecified fall, initial encounter; Y92.89 Other specified places as the place of occurrence of the external cause; Y93.01 Activity, walking, marching and hiking; Y99.8 Other external cause status; C78.00 Secondary malignant neoplasm of unspecified lung; C78.7 Secondary malignant neoplasm of liver and intrahepatic bile duct; R79.89 Other specified abnormal findings of blood chemistry; D72.9 Disorder of white blood cells, unspecified; R60.0 Localized edema; E11.9 Type 2 diabetes mellitus without complications; J44.9 Chronic obstructive pulmonary disease, unspecified; D64.9 Anemia, unspecified; Z79.899 Other long term (current) drug therapy; Z79.2 Long term (current) use of antibiotics; Z79.4 Long term (current) use of insulin; Z88.8 Allergy status to other drugs, medicaments and biological substances; Z88.0 Allergy status to penicillin; Z91.040 Latex allergy status; Z91.09 Other allergy status, other than to drugs and biological substances
CPT/HCPCS: 36415; 71020; 73030; 73060; 73090; 73110; 80048; 80076; 81000; 83605; 83690; 83735; 85025; 87040; 87086; 96374; 96375; 96376; 99284; J2405

== ENCOUNTER → 2017-03-22 | Outpatient (REF) | payer BC, SELFPAY ==
[~2017-03-22] MED LIST changes: +ATIV1TAB7 PO; +KEFL500C7 PO
== END ==
LOC: M LAB REF 12:40
PROVIDERS: ATTEND Internal Medicine Medical Oncology
DX: C22.1 Intrahepatic bile duct carcinoma (principal)